=== PATIENT | female | born 1935 | race Caucasian/White ===

== ENCOUNTER 2020-08-11 14:29 | Inpatient (IN) | payer OTHER, SELFPAY ==
--- NOTE | ~2020-08-11 | MR_ITS ---
EXAMINATION: MR MRCP wo con/w 3D wo ind pp DATE: 08/12/2020 12:07 INDICATION: Biliary duct dilatation. TECHNIQUE: Magnetic resonance imaging (MRI) of the abdomen was performed without intravenous contrast . Sequences included coronal T2-weighted FS FSE, coronal T2-weighted FSE, axial T1-weighted LAVA, cor onal FS FIESTA, axial dual-echo T1-weighted SPGR, coronal lava-FLEX, sagittal T2-weighted FSE, axial T2-weighted FSE, and axial DWI. Thick-slab T2-weighted FSE images were obtained for magnetic resonanc e cholangiopancreatography (MRCP). Maximum intensity projection 3-D reconstructions of the volumetric data were created by the technologist. Postcontrast sequences included coronal LAVA-flex and time co urse of axial T1-weighted LAVA. COMPARISON: CT abdomen and pelvis 08/11/2020 FINDINGS: ABDOMEN MRI: There is a small sliding hiatal hernia. There are cysts in the liver measuring up to 7 m m. There is moderate intrahepatic and extrahepatic biliary duct dilatation. The common duct measures 11 mm. There is a 13 x 5 x 9 mm dependent nonobstructing mass in the common bile duct. The gallbladde r is distended. There is dependent sludge versus stones in the gallbladder. The spleen is normal. The re is parenchymal atrophy of the pancreas. There are dilated sidechains of the pancreatic duct, consi stent with chronic pancreatitis. The adrenal glands are normal. There are cysts in the kidneys measur ing up to 7 mm on the right. There are no dilated loops of bowel. There are no pathologically enlarge d lymph nodes. There is no free intraperitoneal fluid. ABDOMEN MRCP: Again seen is a dependent obstructing mass in the common bile duct. IMPRESSION: 1. Moderate intrahepatic and extrahepatic biliary duct dilatation. 13 x 5 x 9 mm dependent nonobstruc ting mass in the common bile duct, likely sludge. Consider ERCP. 2. Dependent material in the gallbladder, likely sludge. 3. Gallbladder distention again seen. Correlate with physical exam to exclude acute cholecystitis. Co nsider HIDA scan. Reviewed, dictated and finalized at location B. IMPRESSION: 1. Moderate intrahepatic and extrahepatic biliary duct dilatation. 13 x 5 x 9 m m dependent nonobstructing mass in the common bile duct, likely sludge. Conside r ERCP. 2. Dependent material in the gallbladder, likely sludge. 3. Gallbladder distention again seen. Correlate with physical exam to exclude a cute cholecystitis. Consider HIDA scan.
--- NOTE | ~2020-08-11 | XR_ITS ---
EXAMINATION: XR ERCP EXAM DATE: 08/13/2020 14:01 INDICATION: Possible Stones, Balloon Dilation, Spyglass Scope Used . TECHNIQUE: Fluoroscopy used during XR ERCP performed by Dr. Malvin Mata MD. Radiolo gist was not present for the imaging or procedure. Total fluoroscopic time of 161 seconds. The DAP for this procedure was 0.95 mGym2. A total of 12 images sent to PACS from the exam. Correlation is m kar to MRCP 08/12/2020. FINDINGS: The ampulla Vater was cannulated, and subsequently injected with contrast. It demonstrated moderate earlier duct dilation without any obstructing etiology identified. No filling defects or st rictures. Correlate with procedure note. IMPRESSION: Moderate biliary dilation. Reviewed, dictated and finalized at location A. IMPRESSION: Moderate biliary dilation.
--- NOTE | ~2020-08-11 | CT_ITS ---
EXAMINATION: CT abdomen pelvis wo con DATE: 08/11/2020 15:47 INDICATION: Obstruction. TECHNIQUE: Computed tomography (CT) of the abdomen and pelvis was performed without intravenous contr ast. Automated exposure control and iterative reconstruction technique were employed. The dose-length product was 1308.45 mGy-cm. COMPARISON: None. FINDINGS: The visualized portions of the lung bases demonstrate widespread septal thickening and bron chiectasis, consistent with chronic interstitial lung disease. No pleural effusion. The heart size is normal. No pericardial effusion. There is a small sliding hiatal hernia. There is moderate intrahepa tic biliary duct dilatation. There are cysts in the liver measuring up to 9 mm. The gallbladder is di stended. Calcifications in the spleen are consistent with old granulomatous disease. The pancreas, ad renal glands, and right kidney are normal. There are 2 mm and 3 mm stones in left kidney. The common duct is dilated to 16 mm. Stool distends the rectum. There is a large volume of stool in the colon. T he appendix is normal. There is mild periportal lymphadenopathy with the largest node measuring 2.2 x 1.3 cm. There is no free intraperitoneal fluid. There is severe osteoarthritis of the hips. There is severe thoracolumbar spondylosis. There is a chronic compression fracture of L1. IMPRESSION: 1. Intrahepatic and extrahepatic biliary duct dilatation. No obstructing mass or stone identified. Co nsider MRCP. 2. Gallbladder distention. Correlate with physical exam to exclude acute cholecystitis. 3. Large volume of stool in the colon with distention of the rectum. 4. Small sliding hiatal hernia. 5. Mild periportal lymphadenopathy, likely reactive. Reviewed, dictated and finalized at location B. IMPRESSION: 1. Intrahepatic and extrahepatic biliary duct dilatation. No obstructing mass o r stone identified. Consider MRCP. 2. Gallbladder distention. Correlate with physical exam to exclude acute cholec ystitis. 3. Large volume of stool in the colon with distention of the rectum. 4. Small sliding hiatal hernia. 5. Mild periportal lymphadenopathy, likely reactive.
[2020-08-11 14:41] VITALS: BP 134/73; PULSE 72; RESP 20; TEMP 36.7; O2SAT 95
[2020-08-11 15:42] LABS: Basophils Absolute Auto 0.1 K/mm3 (0.0-0.1); Basophils Percent Auto 0.5 % (0.2-1.2); Eosinophils Absolute Auto 0.2 K/mm3 (0-0.3); Eosinophils Percent Auto 1.1 % (0-4.4); Hematocrit 45.4 % (37.0-47.0); Hemoglobin 15.8 g/dL (12.0-15.0); Immature Granulocyte Absolute 0.49 K/mm3 (0.00-0.031); Lymphocytes Percent Auto 7.3 % (18.3-44.2); Mean Corpuscular HGB Conc 34.8 g/dl (32-36); Mean Corpuscular Hemoglobin 31.9 pg (26-34); Mean Corpuscular Volume 91.7 fl (80-100); Mean Platelet Volume 9.6 fl (7.4-10.4); Monocytes Absolute Auto 1.5 K/mm3 (0.1-0.6); Monocytes Percent Auto 9.3 % (2.6-8.5); Neutrophils Absolute Auto 13.1 K/mm3 (1.3-6.7); Neutrophils Percent Auto 78.8 % (45.5-73.1); Platelet Count Result 371 k/mm3 (150-375); Red Blood Count 4.95 M/mm3 (4.2-5.4); White Blood Count 16.5 K/mm3 (4.5-10.0)
[2020-08-11 15:42] LABS: Estimated CRCL calculation 22 ml/min; Estimated Glomerular Filt Rate 24
[2020-08-11 15:48] LABS: Add Urine Microscopic? YES; Appearance Urine Cloudy (Clear); Bacteria Urine 2+ /hpf; Bilirubin Urine Negative (Negative); Blood Urine 1+ (Negative); Color Urine Yellow (Yellow); Glucose Urine UA Negative (Negative); Hyaline Casts Urine 20-29 /lpf; Ketones Urine Negative (Negative); Leukocyte Esterase Ur 3+ LEU/UL (Negative); Mucus Urine Rare /lpf; Nitrate Urine Negative (Negative); Protein Urine Negative (Negative); RBC Urine 0-2 /hpf (0-2); Specific Grav Ur 1.009 (1.001-1.035); Squamous Epithelial Cell Urine Rare /hpf (Few); Urobilinogen Urine Negative mg/dL (<2.0); WBC Clumps Urine Present /HPF; WBC Urine >75 /hpf
[2020-08-11 15:52] LABS: Alanine Aminotransferase 15 U/L (4-35); Albumin Level 4.2 g/dL (3.5-5.1); Alkaline Phosphatase 159 U/L (38-126); Anion Gap 8 mmol/L (8-16); Aspartate Amino Transferase 44 U/L (14-36); Bilirubin,Total 0.7 mg/dL (0.2-1.3); Blood Urea Nitrogen 36 mg/dL (7-17); Calcium 8.8 mg/dL (8.4-10.2); Carbon Dioxide 38 mmol/L (22-30); Chloride 82 mmol/L (98-107); Estimated CRCL calculation 23 ml/min; Estimated Glomerular Filt Rate 25; Glucose 151 mg/dL (65-105); Lipase 25 U/L (23-300); Potassium 3.1 mmol/L (3.4-5.0); Sodium 128 mmol/L (137-145)
[2020-08-11] MEDS: FAMOTIDINE 20 MG/2 ML VIAL IV PUSH ×2 (15:53→22:47)
[2020-08-11] MEDS: SODIUM CHLORIDE 0.9% IV 1,000 ML 999 ML IV CONT ×2 (15:53→17:03)
[2020-08-11] MEDS: ONDANSETRON INJ 4 MG/2 ML VIAL IV PUSH (15:53)
--- NOTE | 2020-08-11 17:23 | ED.GENADULT ---
HPI - General Adult General Chief complaint: Nausea/Vomiting/Diarrhea Stated complaint: not eating 2-3 days Source: patient and RN notes reviewed Mode of arrival: EMS Limitations: no limitations History of Present Illness HPI narrative: Patient is an 84-year-old female who presents with decreased appetite and GI upset for the last 2 days noting that she feels nauseous patient notes mild discomfort in the epigastrium. Patient denies any vomiting diarrhea rectal bleeding or melena. Patient has indwelling Zhu catheter. Related Data Home Medications Medication Instructions Recorded Confirmed amlodipine 10 mg PO DAILY 08/11/20 08/11/20 atorvastatin 20 mg PO DAILY 08/11/20 celecoxib 200 mg PO DAILY 08/11/20 fluticasone propionate 1 spray INTRANASAL DAILY 08/11/20 furosemide 40 mg PO DAILY 08/11/20 08/11/20 levothyroxine 200 mcg 08/11/20 metolazone 5 mg PO DAILY 08/11/20 08/11/20 mirabegron [Myrbetriq] mg PO 08/11/20 ondansetron HCl 4 mg PO Q4-8H PRN 08/11/20 potassium chloride 20 meq PO 08/11/20 Allergies Allergy/AdvReac Type Severity Reaction Status Date / Time adhesive tape Allergy Mild Rash Unverified 08/11/20 18:01 morphine Allergy Mild Rash Unverified 08/11/20 18:01 Review of Systems Review of Systems: All systems reviewed & are unremarkable except as noted in HPI and below PMFSH Past Medical History Medical History (Updated 08/11/20 @ 18:06 by Kranthi Duenas PA-C) Hyperlipidemia Hypertension Surgical History Surgical History (Updated 08/11/20 @ 17:39 by Kranthi Duenas PA-C) History of orthopedic surgery Social History Social History (Updated 08/11/20 @ 17:39 by rKanthi Duenas PA-C) Smoking status: Never smoker Exam Narrative: Exam Narrative: GENERAL: Well-appearing, well-nourished, and in no acute distress. HEAD: Normocephalic, atraumatic. EYES: PERRLA and EOMI. ENT: Nares clear, no rhinorrhea or epistaxis. Mucous membranes moist. Oropharynx without tonsillar hypertrophy exudate or other lesions. NECK: Supple. No adenopathy or masses. CHEST: Clear to auscultation. No respiratory distress. No wheezes rales or rhonchi HEART: Regular rate and rhythm. No murmur heard. Normal peripheral pulses. ABDOMEN: Soft, mild epigastric tenderness no rebound or guarding, nondistended EXTREMITIES: Normal range of motion. No edema. SKIN: Warm, dry, no rash. NEURO: No focal deficits. Alert and oriented x3. Cranial nerves II through XII grossly intact PSYCH: Normal mood and affect. Course Course Emergency Course: Patient in the room in no distress at this time aware of case findings treatment plan and diagnosis agreeing to stay in hospital will have GI consult GI did not recommend any antibiotics for acute cholecystitis given that her liver enzymes were in normal limits MRCP has been ordered. Patient will be given Rocephin for urinary tract infection has been given normal saline with hydration given her dehydration picture and acute renal insufficiency there was no old labs or blood work to compare. She does have leukocytosis. Consultations Consultation #1: Discussed case with Dr. Nation who will consult on patient MRCP has been ordered does not recommend antibiotics for acute cholecystitis given the laboratory findings and will reevaluate the patient. Date: 08/11/20 Time: 17:41 Consultation #2: Discussed case with Ellen who has agreed to ask The patient Date: 08/11/20 Time: 17:41 Vital Signs Vital signs: Vital Signs Temperature 98.0 F 08/11/20 14:41 Pulse Rate 72 08/11/20 14:41 Respiratory Rate 08/11/20 14:41 Blood Pressure 134/73 08/11/20 14:41 Pulse Oximetry 95 08/11/20 14:41 Temperature 98.0 F 08/11/20 14:41 Pulse Rate 72 08/11/20 14:41 Respiratory Rate 20 08/11/20 14:41 Blood Pressure 134/73 08/11/20 14:41 Pulse Oximetry 95 08/11/20 14:41 Medical Decision Making [facility] Narrative Medical decision making narrative: Patient in the [place]
[2020-08-11 17:48] VITALS: BP 138/76; PULSE 63; RESP 18; O2SAT 99
[2020-08-11] MEDS: POTASSIUM CHLORIDE 20 MEQ PACKET (FOR LIQUID) 40 MEQ PO (19:14)
[2020-08-11] MEDS: MAGNESIUM SULF 2 GM/WATER 50ML 2 GM/50 ML BAG IVPB (19:14)
[2020-08-11 20:02] VITALS: BP 133/57; PULSE 76; RESP 20; TEMP 36.8; O2SAT 93; BMI 34.0
[2020-08-11 20:07] VITALS: BP 122/68; PULSE 78; RESP 18; O2SAT 99
[2020-08-11 20:17] VITALS: BMI 34.2
--- NOTE | 2020-08-11 21:37 | PM.IMHP ---
H&P: HPI History of Present Illness Date/Time: 08/11/20 21:37 this is a 84-year-old female patient who resides at [facility]. The patient stated that she had abdominal discomfort about 4 weeks ago that came and went was similar to what she had today but it was less intense and it went away on its own. The patient has no prior history of any gallstones. And GI upset for at least the last 2 days. Patient stated she has been having dry heaves. And some mild discomfort in the epigastric area. No vomiting or diarrhea. No fever or chills. She has indwelling Zhu catheter. The patient was found to be positive for UTI and was started on Rocephin. Abdominal CT was read as the following 1. Intrahepatic and extrahepatic biliary duct dilatation. No obstructing mass or stone identified. Consider MRCP. 2. Gallbladder distention. Correlate with physical exam to exclude acute cholecystitis. 3. Large volume of stool in the colon with distention of the rectum. 4. Small sliding hiatal hernia. 5. Mild periportal lymphadenopathy, likely reactive. GI had been consulted an MRCP has been ordered for tomorrow. The patient was given IV fluid boluses, Pepcid IV, Tylenol IV, Zofran, ceftriaxone, magnesium, and potassium in the emergency room. 128. Potassium 3.1. White count is 16.5. There was some discussion about possible cholecystitis. However GI did not feel that we should start antibiotics for cholecystitis but go ahead and treat the UTI. The patient is being admitted for observation on the date of service of 08/11/2020. Chief Complaint: Dry heaves Review of Systems Review of Systems: All systems reviewed & are unremarkable except as noted in HPI and below Constitutional: Constitutional: Reports as per HPI and Reports no additional constitutional complaints Eyes: Eyes: Reports as per HPI and Reports no additional eye complaints ENT: Reports system reviewed and no additional complaints, except as documented and Reports Normal hearing present Cardiovascular: Cardiovascular: Reports no additional cardiovascular complaints Respiratory: Respiratory: Reports no additional respiratory complaints and Reports no additional respiratory complaints Gastrointestinal: Gastrointestinal: Reports as per HPI and Reports no additional gastrointestinal complaints Musculoskeletal: Musculoskeletal: Reports no additional musculoskeletal complaints Integumentary/Breasts: Skin/Breast: Reports system reviewed and no additional complaints, except as docu and Reports as per HPI Neurologic: Reports system reviewed and no additional complaints, except as documented, Reports as per HPI and Reports Normal hearing present Psychiatric: Psychiatric: Reports no additional psychiatric complaints and Reports as per HPI Endocrine: Endocrine: Reports no additional endocrine complaints Hematologic/Lymphatic: Hematologic/Lymphatic: Reports no additional hematologic/lymphatic complaints Allergic/Immunologic: Allergic/Immunologic: Reports no additional allergic/immunologic complaints [facility] Past Medical History Medical History (Updated 08/11/20 @ 21:51 by Ellen Sapp NP) History of breast cancer Lumpectomy Hyperlipidemia Hypertension Hypothyroidism Surgical History Surgical History (Updated 08/11/20 @ 21:44 by Ellen Sapp NP) H/O bilateral cataract extraction H/O lumpectomy H/O shoulder replacement On the left History of orthopedic surgery History of total knee replacement Bilaterally Family History Family History (Updated 08/11/20 @ 21:46 by Ellen Sapp NP) Unknown No problems noted. Social History Social History (Updated 08/11/20 @ 21:47 by Ellen Sapp NP) Social History: The patient is and never had any children. 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 She is a lifelong nonsmoker. Her friend Melissa mendoza is her friend that is the durable power estate planning attorney for healthcare. The patient desires to be a full code but does not want to l
[2020-08-11] MEDS: SODIUM CHLORIDE 0.9% IV 1,000 ML 80 ML IV CONT (22:47)
[2020-08-11 23:25] VITALS: O2SAT 98
[2020-08-11 23:48] LABS: Anion Gap 8 mmol/L (8-16); Blood Urea Nitrogen 33 mg/dL (7-17); Calcium 7.8 mg/dL (8.4-10.2); Carbon Dioxide 33 mmol/L (22-30); Chloride 88 mmol/L (98-107); Estimated CRCL calculation 27 ml/min; Estimated Glomerular Filt Rate 31; Glucose 106 mg/dL (65-105); Potassium 2.7 mmol/L (3.4-5.0); Sodium 129 mmol/L (137-145)
--- NOTE | 2020-08-11 23:51 | PC.NURSE ---
patient had significant bowel movement after fleet enema administered. -AEW RN
[2020-08-12] MEDS: ONDANSETRON INJ 4 MG/2 ML VIAL IV PUSH (04:24)
[2020-08-12 05:31] VITALS: BP 112/42; PULSE 57; RESP 18; TEMP 36.6; O2SAT 94
--- NOTE | 2020-08-12 06:16 | PC.NURSE ---
This patient, Isabel Monzon, was admitted to 3 [facility] Surg Room 304-01 @ 20:02. Patient/family oriented to hospital policies and general routines including ID bracelet, bed and alarms, visiting hours, pain management, procedures, bathroom and other care routines, personal items, smoking policy, room service/diet, and visiting hours. Information on how to activate the Rapid Response Team has been discussed. Patient/Family are encouraged to report perceived risks to care and to ask questions if they do not understand what they are told or what they should do.
[2020-08-12 06:22] LABS: Basophils Absolute Auto 0.1 K/mm3 (0.0-0.1); Basophils Percent Auto 0.7 % (0.2-1.2); Eosinophils Absolute Auto 0.3 K/mm3 (0-0.3); Eosinophils Percent Auto 1.4 % (0-4.4); Hematocrit 37.5 % (37.0-47.0); Immature Granulocyte Absolute 0.38 K/mm3 (0.00-0.031); Immature Granulocyte Percent A 2.1 % (0-0.5); Lymphocytes Absolute Auto 1.17 K/mm3 (0.9-3.2); Lymphocytes Percent Auto 6.4 % (18.3-44.2); Mean Corpuscular HGB Conc 34.7 g/dl (32-36); Mean Corpuscular Hemoglobin 31.6 pg (26-34); Mean Corpuscular Volume 91.2 fl (80-100); Mean Platelet Volume 9.7 fl (7.4-10.4); Monocytes Absolute Auto 1.5 K/mm3 (0.1-0.6); Monocytes Percent Auto 8.1 % (2.6-8.5); Neutrophils Absolute Auto 14.7 K/mm3 (1.3-6.7); Neutrophils Percent Auto 81.3 % (45.5-73.1); Platelet Count Result 293 k/mm3 (150-375); Red Blood Count 4.11 M/mm3 (4.2-5.4); Red Cell Distribution Width 12.7 % (11.5-14.5); White Blood Count 18.1 K/mm3 (4.5-10.0)
[2020-08-12 06:34] LABS: Alanine Aminotransferase 11 U/L (4-35); Albumin Level 3.2 g/dL (3.5-5.1); Alkaline Phosphatase 117 U/L (38-126); Anion Gap 5 mmol/L (8-16); Aspartate Amino Transferase 34 U/L (14-36); Bilirubin,Total 0.3 mg/dL (0.2-1.3); Blood Urea Nitrogen 29 mg/dL (7-17); Calcium 7.6 mg/dL (8.4-10.2); Carbon Dioxide 30 mmol/L (22-30); Chloride 92 mmol/L (98-107); Estimated CRCL calculation 38 ml/min; Estimated Glomerular Filt Rate 48; Glucose 84 mg/dL (65-105); Lipase 17 U/L (23-300); Magnesium 1.5 mg/dL (1.6-2.3); Potassium 3.1 mmol/L (3.4-5.0); Sodium 127 mmol/L (137-145)
[2020-08-12 07:28] LABS: Thyroid Stimulating Hormone Reflex 0.022 uIU/mL (0.465-4.68)
[2020-08-12 08:20] LABS: Free T4 Free Thyroxine Reflex 2.69 ng/dL (0.78-2.19)
[2020-08-12] MEDS: POTASSIUM CHLORIDE 20 MEQ TABLET 40 MEQ PO (09:09)
[2020-08-12] MEDS: FLUTICASONE PROPIONATE 0.05% NA SPR 16 GM BTL (*BKC) 1 SPRAY NASAL (09:11)
[2020-08-12] MEDS: FAMOTIDINE 20 MG/2 ML VIAL IV PUSH ×2 (09:11→21:02)
[2020-08-12] MEDS: MAGNESIUM SULF 2 GM/WATER 50ML 2 GM/50 ML BAG IVPB (09:50)
[2020-08-12 11:09] VITALS: O2SAT 95
--- NOTE | 2020-08-12 13:52 | PM.IMPN ---
Progress Note: A&P Assessment and Plan (1) Urinary tract infection: Code(s): N39.0 - Urinary tract infection, site not specified Status: Acute Assessment and Plan: Continue with Rocephin. Monitor urine cultures. Patient is having dry heaves which could either be from the gallbladder or from urinary tract infection. She does not appear to be septic. Her white count 16.5. Blood pressure is 122/68. Heart rate 78. (2) Dysfunctional gallbladder: Code(s): K82.8 - Other specified diseases of gallbladder Status: Acute Assessment and Plan: The patient has intrahepatic and extrahepatic biliary duct dilatation. Patient is scheduled for an Mrcp tomorrow. And GI has been consulted. 08/12/20 13:52 Patient 84-year-old female presented emergency department with a complaint of epigastric pain and dry heaving patient had a CT scan of abdomen suggestive cholecystitis patient will be seen by GI and further recommendation to follow, GI did an suspect is infection and does not recommend antibiotic, to further evaluate MRCP it showed: 1. Moderate intrahepatic and extrahepatic biliary duct dilatation. 13 x 5 x 9 mm dependent nonobstructing mass in the common bile duct, likely sludge. Consider ERCP. 2. Dependent material in the gallbladder, likely sludge. 3. Gallbladder distention again seen. Correlate with physical exam to exclude acute cholecystitis. Consider HIDA scan. Patient be seen by GI and further recommendation to follow, patient states feeling much better compared to when she arrived denies any nausea or vomiting fever or chills (3) Hypothyroidism: Code(s): E03.9 - Hypothyroidism, unspecified Status: Chronic Assessment and Plan: Check thyroid level. (4) Hyperlipidemia: Code(s): E78.5 - Hyperlipidemia, unspecified Status: Chronic Assessment and Plan: I am holding the atorvastatin (5) Hypertension: Code(s): I10 - Essential (primary) hypertension Status: Chronic Assessment and Plan: I am holding the amlodipine as patient has a soft blood pressure I am holding Lasix due to her renal failure and low potassium and low sodium. The metolazone as well. (6) Acute hyponatremia: Code(s): E87.1 - Hypo-osmolality and hyponatremia Status: Acute (7) Acute hypokalemia: Code(s): E87.6 - Hypokalemia Status: Acute Assessment and Plan: It has been replaced in all check her BMP now. (8) Acute renal insufficiency: Code(s): N28.9 - Disorder of kidney and ureter, unspecified Status: Acute Assessment and Plan: Most likely due to dehydration. I am holding her Lasix and metolazone at this time. Subjective Date/time seen: 08/12/20 13:52 Patient 84-year-old female presented emergency department with a complaint of epigastric pain and dry heaving patient had a CT scan of abdomen suggestive cholecystitis patient will be seen by GI and further recommendation to follow, GI did an suspect is infection and does not recommend antibiotic, to further evaluate MRCP it showed: 1. Moderate intrahepatic and extrahepatic biliary duct dilatation. 13 x 5 x 9 mm dependent nonobstructing mass in the common bile duct, likely sludge. Consider ERCP. 2. Dependent material in the gallbladder, likely sludge. 3. Gallbladder distention again seen. Correlate with physical exam to exclude acute cholecystitis. Consider HIDA scan. Patient be seen by GI and further recommendation to follow, patient states feeling much better compared to when she arrived denies any nausea or vomiting fever or chills Review of Systems Review of Systems: All systems reviewed & are unremarkable except as noted in HPI and below Objective Data Vital Signs Vital Signs: Vital Signs - 24 hr 08/11/20 14:41 08/11/20 17:48 08/11/20 20:02 Temperature 98.0 F 98.2 F Pulse Rate 72 63 76 Respiratory Rate 20 18 20 Blood Pressure 134/73 138/76 133/57 L Pulse Oximetry 95 99
[2020-08-12 14:00] VITALS: BP 125/59; PULSE 76; RESP 20; TEMP 36.3; O2SAT 97
[2020-08-12] MEDS: traMADol HCL (*CRX) 50 MG TABLET PO ×2 (14:42→21:05)
[2020-08-12] MEDS: SODIUM CHLORIDE 0.9% IV 1,000 ML 80 ML IV CONT (16:37)
--- NOTE | 2020-08-12 16:47 | WPDGICN ---
Assessment and Plan Assessment and plan (1) Common bile duct dilatation: Code(s): K83.8 - Other specified diseases of biliary tract Status: Acute Assessment and Plan: probably cause of symptoms (she has enlarge bile duct with large sludge- reviewed MRCP), normal liver enzymes and no pancreatitis but she has been quite symptomatic last month she is willing to have ERCP- will do it tomorrow with spyglass to visualize bile duct patient does not want to have cholecystectomy (2) Biliary sludge: Code(s): K83.8 - Other specified diseases of biliary tract Status: Acute Assessment and Plan: ercp tomorrow (3) Nausea: Code(s): R11.0 - Nausea Status: Acute (4) Dysfunctional gallbladder: Code(s): K82.8 - Other specified diseases of gallbladder Status: Acute Assessment and Plan: medical treatment (5) Constipation: Code(s): K59.00 - Constipation, unspecified Status: Acute Assessment and Plan: given enema (6) Leukocytosis: Code(s): D72.829 - Elevated white blood cell count, unspecified Status: Acute Assessment and Plan: on antibiotics, also possible UTI blood culture (7) Urinary tract infection: Code(s): N39.0 - Urinary tract infection, site not specified Status: Acute GI Consult Note Consult date/time: 08/12/20 16:47 Reason for consult: nausea, dilated bile duct HPI: Isabel Monzon 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 About 4 weeks ago had almost 1 week of nausea with gagging but went away, just few days ago with similar symptoms with constant nausea and dry heaves, mild discomfort in the epigastric area and not eating much. She also has indwelling Zhu catheter and found to be positive for UTI and was started on Rocephin. She also had CT a/p showed intrahepatic and extrahepatic biliary duct dilatation. No obstructing mass or stone identified, gallbladder distention and large volume of stool in the colon with distention of the rectum. Then MRCP reviewed and showed moderate intrahepatic and extrahepatic biliary duct dilatation. 13 x 5 x 9 mm dependent nonobstructing mass in the common bile duct, likely sludge. Consider ERCP, dependent material in the gallbladder, likely sludge. Liver enzymes and lipase normal but leukocytosis. She also had rectal enema that helped some but she says that normally is having BM every other day. She says that had colonoscopy but never egd. Review of Systems Constitutional: Constitutional: Denies chills Eyes: Eyes: Reports no additional eye complaints ENT: Reports Normal hearing present Cardiovascular: Cardiovascular: Denies chest pain Respiratory: Respiratory: Denies cough Gastrointestinal: Gastrointestinal: Reports nausea Genitourinary: Genitourinary: Denies hematuria Musculoskeletal: Comments: chronic leg weakness Integumentary/Breasts: Skin/Breast: Reports system reviewed and no additional complaints, except as docu Neurologic: Reports system reviewed and no additional complaints, except as documented Psychiatric: Psychiatric: Reports no additional psychiatric complaints PMFSH Past Medical History Medical History (Updated 08/12/20 @ 16:53 by Malvin Mata MD) Biliary sludge Common bile duct dilatation History of breast cancer Lumpectomy Hyperlipidemia Hypertension Hypothyroidism Leukocytosis Nausea Surgical History Surgical History (Updated 08/11/20 @ 21:44 by Ellen Sapp NP) H/O bilateral cataract extraction H/O lumpectomy H/O shoulder replacement On the left History of orthopedic surgery History of total knee replacement Bilaterally Family History Family History (Updated 08/11/20 @ 21:46 by Ellen Sapp NP) Unknown No problems noted. Social History Social History (Updated 08/11/20 @ 21:47 by Ellen Sapp NP) Social History: The patient is a
[2020-08-12 21:27] VITALS: BP 110/45; PULSE 65; RESP 16; TEMP 36.5; O2SAT 94
[2020-08-13] VITALS (11 sets, daily range): BP systolic 99–135; BP diastolic 41–87; PULSE 58–74; RESP 16–20; TEMP 36.1–37.2; O2SAT 91–100
[2020-08-13] MEDS: LEVOTHYROXINE SODIUM 100 MCG TABLET 200 MCG PO (06:19)
[2020-08-13 06:23] LABS: Hematocrit 42.4 % (37.0-47.0); Hemoglobin 14.1 g/dL (12.0-15.0); Mean Corpuscular HGB Conc 33.3 g/dl (32-36); Mean Corpuscular Hemoglobin 31.9 pg (26-34); Mean Corpuscular Volume 95.9 fl (80-100); Mean Platelet Volume 9.7 fl (7.4-10.4); Platelet Count Result 274 k/mm3 (150-375); Red Blood Count 4.42 M/mm3 (4.2-5.4); White Blood Count 13.8 K/mm3 (4.5-10.0)
[2020-08-13 06:36] LABS: Anion Gap 5 mmol/L (8-16); Blood Urea Nitrogen 16 mg/dL (7-17); Calcium 8.9 mg/dL (8.4-10.2); Carbon Dioxide 33 mmol/L (22-30); Chloride 96 mmol/L (98-107); Estimated CRCL calculation 50 ml/min; Estimated Glomerular Filt Rate > 60; Glucose 91 mg/dL (65-105); Potassium 3.4 mmol/L (3.4-5.0); Sodium 134 mmol/L (137-145)
[2020-08-13] MEDS: FLUTICASONE PROPIONATE 0.05% NA SPR 16 GM BTL (*BKC) 1 SPRAY NASAL (08:30)
[2020-08-13] MEDS: FAMOTIDINE 20 MG/2 ML VIAL IV PUSH ×2 (08:30→21:34)
--- NOTE | 2020-08-13 11:29 | WPDANESEPPF ---
Anes - Initial Pre Proc Eval Procedure: Operation Date: 08/13/20 12:30 Proposed Procedures p Endoscopic Retro Cholangiopancreatogram - Malvin Mata MD Date/Time: 08/13/20 11:29 Surgeon: Wayne Rico MD Pre Op Diagnosis: Hyponatremia, hypokalemia, acute kidney injury Patient Data Age: 85 Gender: F Height: 1.63 m Weight: 90.3 kg Last Vital Signs Temp 37.2 C 08/13/20 11:22 Pulse 66 08/13/20 11:22 Resp 20 08/13/20 11:22 BP 116/52 L 08/13/20 11:22 Pulse Ox 94 08/13/20 11:22 Allergies Allergy/AdvReac Type Severity Reaction Status Date / Time adhesive tape Allergy Mild Rash Verified 08/13/20 11:29 morphine Allergy Mild Rash Verified 08/13/20 11:29 Home Medications Medication Instructions Recorded Confirmed Type acetaminophen 500 mg PO Q4H PRN 08/11/20 08/11/20 History amlodipine 10 mg PO DAILY 08/11/20 08/11/20 History aspirin 81 mg PO DAILY 08/11/20 08/11/20 History atorvastatin 20 mg PO DAILY 08/11/20 08/11/20 History celecoxib 200 mg PO DAILY 08/11/20 08/11/20 History fluticasone propionate 1 spray INTRANASAL DAILY 08/11/20 08/11/20 History furosemide 40 mg PO DAILY 08/11/20 08/11/20 History levothyroxine 200 mcg PO DAILY 08/11/20 08/11/20 History loratadine 10 mg PO DAILY PRN 08/11/20 08/11/20 History meclizine 25 mg PO TID PRN 08/11/20 08/11/20 History metolazone 5 mg PO DAILY 08/11/20 08/11/20 History omeprazole 20 mg PO BID 08/11/20 08/11/20 History omeprazole 20 mg PO DAILY 08/11/20 08/11/20 History ondansetron HCl 4 mg PO Q4-5H PRN 08/11/20 08/11/20 History polyethylene glycol 3350 [Miralax] 17 g PO PRN PRN 08/11/20 08/11/20 History potassium chloride 20 meq PO BID 08/11/20 08/11/20 History spironolactone 25 mg PO DAILY 08/11/20 08/11/20 History tramadol 50 mg PO Q4H PRN 08/11/20 08/11/20 History Laboratory Tests 08/13/20 08/13/20 05:41 05:41 WBC 13.8 K/mm3 H K/mm3 (4.5-10.0) RBC 4.42 M/mm3 M/mm3 (4.2-5.4) Hgb 14.1 g/dL g/dL (12.0-15.0) Hct 42.4 % % (37.0-47.0) MCV 95.9 fl D fl (80-100) MCH 31.9 pg pg (26-34) MCHC 33.3 g/dl g/dl (32-36) RDW 13.0 % % (11.5-14.5) Plt Count 274 k/mm3 k/mm3 (150-375) MPV 9.7 fl fl (7.4-10.4) Sodium 134 mmol/L L mmol/L (137-145) Potassium 3.4 mmol/L mmol/L (3.4-5.0) Chloride 96 mmol/L L mmol/L (98-107) Carbon Dioxide 33 mmol/L H mmol/L (22-30) Anion Gap 5 mmol/L L mmol/L (8-16) BUN 16 mg/dL D mg/dL (7-17) Creatinine 0.80 mg/dL mg/dL (0.7-1.0) Estim Creat Clear Calc 50 ml/min ml/min Estimated GFR > 60 (59 - ) Glucose 91 mg/dL mg/dL (65-105) Calcium 8.9 mg/dL mg/dL (8.4-10.2) Magnesium 2.0 mg/dL mg/dL (1.6-2.3) Patient hx anesthesia problems: none Family hx anesthesia problems: none PMFSH Past Medical History Medical History (Updated 08/12/20 @ 16:53 by Malvin Mata MD) Biliary sludge Common bile duct dilatation History of breast cancer Lumpectomy Hyperlipidemia Hypertension Hypothyroidism Leukocytosis Nausea Surgical History Surgical History (Updated 08/11/20 @ 21:44 by Ellen Sapp NP) H/O bilateral cataract extraction H/O lumpectomy H/O shoulder replacement On the left History of orthopedic surgery History of total knee replacement Bilaterally Family History Family History (Updated 08/11/20 @ 21:46 by Ellen Sapp NP) Unknown No problems noted. Social History Social History (Updated 08/11/20 @ 21:47 by Ellen Sapp NP) Social History: The patient is and never had any children. 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 She is a lifelong nonsmoker. Her friend Melissa mendoza is her friend that is the durable power sports attorney for healthcare. The patient desires to be a full code but does not want to live in a vegetative state on a ventilator. She does not use alcohol or illic
--- NOTE | 2020-08-13 14:48 | PC.NURSE ---
Returned from GI Lab at [id number]
[2020-08-13] MEDS: POTASSIUM CHLORIDE 20 MEQ TABLET 40 MEQ PO (15:05)
--- NOTE | 2020-08-13 16:39 | PM.IMPN ---
Progress Note: A&P Assessment and Plan (1) Urinary tract infection: Code(s): N39.0 - Urinary tract infection, site not specified Status: Acute Assessment and Plan: Continue with Rocephin. Monitor urine cultures. Patient is having dry heaves which could either be from the gallbladder or from urinary tract infection. She does not appear to be septic. Her white count 16.5. Blood pressure is 122/68. Heart rate 78. (2) Dysfunctional gallbladder: Code(s): K82.8 - Other specified diseases of gallbladder Status: Acute Assessment and Plan: The patient has intrahepatic and extrahepatic biliary duct dilatation. Patient is scheduled for an Mrcp tomorrow. And GI has been consulted. 08/13/20 16:39 08/12 Patient 84-year-old female presented emergency department with a complaint of epigastric pain and dry heaving patient had a CT scan of abdomen suggestive cholecystitis patient will be seen by GI and further recommendation to follow, GI did an suspect is infection and does not recommend antibiotic, to further evaluate MRCP it showed: 1. Moderate intrahepatic and extrahepatic biliary duct dilatation. 13 x 5 x 9 mm dependent nonobstructing mass in the common bile duct, likely sludge. Consider ERCP. 2. Dependent material in the gallbladder, likely sludge. 3. Gallbladder distention again seen. Correlate with physical exam to exclude acute cholecystitis. Consider HIDA scan. Patient be seen by GI and further recommendation to follow, patient states feeling much better compared to when she arrived denies any nausea or vomiting fever or chills. 08/13 today patient was seen by GI and had a ERCP showed sludge and which was irrigated and cleaned, there was no mass or stone found, patient states is still slightly nauseated after the procedure but denies any fever or chills denies abdominal pain, will continue to monitor patient reassess in the morning and further recommendation to follow (3) Hypothyroidism: Code(s): E03.9 - Hypothyroidism, unspecified Status: Chronic Assessment and Plan: Check thyroid level. (4) Hyperlipidemia: Code(s): E78.5 - Hyperlipidemia, unspecified Status: Chronic Assessment and Plan: I am holding the atorvastatin (5) Hypertension: Code(s): I10 - Essential (primary) hypertension Status: Chronic Assessment and Plan: I am holding the amlodipine as patient has a soft blood pressure I am holding Lasix due to her renal failure and low potassium and low sodium. The metolazone as well. (6) Acute hyponatremia: Code(s): E87.1 - Hypo-osmolality and hyponatremia Status: Acute (7) Acute hypokalemia: Code(s): E87.6 - Hypokalemia Status: Acute Assessment and Plan: It has been replaced in all check her BMP now. (8) Acute renal insufficiency: Code(s): N28.9 - Disorder of kidney and ureter, unspecified Status: Acute Assessment and Plan: Most likely due to dehydration. I am holding her Lasix and metolazone at this time. Subjective Date/time seen: 08/13/20 16:39 08/12 Patient 84-year-old female presented emergency department with a complaint of epigastric pain and dry heaving patient had a CT scan of abdomen suggestive cholecystitis patient will be seen by GI and further recommendation to follow, GI did an suspect is infection and does not recommend antibiotic, to further evaluate MRCP it showed: 1. Moderate intrahepatic and extrahepatic biliary duct dilatation. 13 x 5 x 9 mm dependent nonobstructing mass in the common bile duct, likely sludge. Consider ERCP. 2. Dependent material in the gallbladder, likely sludge. 3. Gallbladder distention again seen. Correlate with physical exam to exclude acute cholecystitis. Consider HIDA scan. Patient be seen by GI and further recommendation to follow, patient states feeling much better compared to when she arrived denies any nausea or vomiting fever or chills. 08/13
[2020-08-13] MEDS: traMADol HCL (*CRX) 50 MG TABLET PO ×2 (16:52→21:36)
[2020-08-13] MEDS: SODIUM CHLORIDE 0.9% IV 1,000 ML 80 ML IV CONT (21:32)
[2020-08-14] VITALS: BP 127/47; PULSE 75; RESP 20; TEMP 36.6; O2SAT 92
--- NOTE | 2020-08-14 | ECHO_ITS ---
Patient Info Name: Isabel Monzon Age: 85 years : 1935 Gender: Female Ht: 64 in Wt: 199 lbs BSA: 2.06 m2 HR: 75 bpm BP: 145 / 70 mmHg Heart Rhythm: Sinus Rhythm Technical Quality: Good Exam Date: 08/14/2020 1:16 PM Exam Location: [facility] Pulmonary Patient Status: Inpatient Admit Date: 08/11/2020 Staff Ordering Physician: Wayne Rico MD Insurance Loss Assessor: Avila Dorado, ANA, RT Attending Provider: Wayne Rico MD Exam Type: CA echo doppler color flow Study Info Indications Z01.818 - Encounter for other preprocedural examination Complete two-dimensional, color flow and Doppler transthoracic echocardiogram is performed. Strain analysis performed. Summary 1. Complete two-dimensional, color flow and Doppler transthoracic echocardiogram is performed. 2. Left ventricular chamber dimension is normal. 3. Left ventricular systolic function is normal, estimated at 60-65%. 4. Right ventricular chamber dimension is mildly enlarged. 5. Left atrial chamber dimension is moderately enlarged. 6. There is mild aortic valve sclerosis. Left Ventricle Left ventricular chamber dimension is normal. Left ventricular systolic function is normal, estimated at 60-65%. The left ventricular diastolic function is grade I diastolic dysfunction. Right Ventricle Right ventricular chamber dimension is mildly enlarged. Left Atria Left atrial chamber dimension is moderately enlarged. Right Atria Right atrial chamber dimension is normal. Aortic Valve The aortic valve is trileaflet. There is mild aortic valve sclerosis. Pulmonic Valve The pulmonic valve is not well visualized. Mitral Valve The mitral valve has normal leaflets. The mitral valve annulus is mildly calcified. Tricuspid Valve The tricuspid valve leaflets are normal. Pericardium/Pleural The pericardium appears normal. Aorta The aortic root size at the sinus of Valsalva is normal. Left Ventricular Outflow Tract Name Value Normal LVOT 2D LVOT Diameter 2.0 cm LVOT Doppler LVOT Peak Gradient 4 mmHg LVOT Mean Gradient 2 mmHg LVOT VTI 17 cm LVOT VTI/AV VTI Ratio 0.5 LVOT Stroke Volume 54 ml LVOT CO 4.1 l/min LVOT CI 2.0 l/min/m2 Mitral Valve Name Value Normal MV Doppler MV Decel Wolfe 220 cm/s2 MV PHT 78 ms MV Area (PHT) 2.8 cm2 4.0-5.0 MV Diastolic Function MV E Peak Velocity 59 cm/s MV A Peak Velocity 82 cm/s MV E/A
[2020-08-14 04:00] VITALS: BP 145/70; PULSE 85; RESP 20; TEMP 36.2; O2SAT 95
[2020-08-14] MEDS: LEVOTHYROXINE SODIUM 100 MCG TABLET 200 MCG PO (06:11)
[2020-08-14 06:17] LABS: Hematocrit 39.1 % (37.0-47.0); Hemoglobin 12.9 g/dL (12.0-15.0); Mean Corpuscular Hemoglobin 31.9 pg (26-34); Mean Corpuscular Volume 96.5 fl (80-100); Mean Platelet Volume 9.7 fl (7.4-10.4); Platelet Count Result 209 k/mm3 (150-375); Red Blood Count 4.05 M/mm3 (4.2-5.4); Red Cell Distribution Width 13.2 % (11.5-14.5); White Blood Count 16.9 K/mm3 (4.5-10.0)
[2020-08-14 06:27] LABS: Alanine Aminotransferase 81 U/L (4-35); Albumin Level 2.9 g/dL (3.5-5.1); Alkaline Phosphatase 296 U/L (38-126); Anion Gap 3 mmol/L (8-16); Aspartate Amino Transferase 156 U/L (14-36); Bilirubin,Total 0.7 mg/dL (0.2-1.3); Blood Urea Nitrogen 11 mg/dL (7-17); Calcium 8.3 mg/dL (8.4-10.2); Carbon Dioxide 30 mmol/L (22-30); Chloride 99 mmol/L (98-107); Estimated CRCL calculation 50 ml/min; Estimated Glomerular Filt Rate > 60; Glucose 92 mg/dL (65-105); Magnesium 1.5 mg/dL (1.6-2.3); Potassium 3.7 mmol/L (3.4-5.0); Sodium 132 mmol/L (137-145)
[2020-08-14] MEDS: FAMOTIDINE 20 MG/2 ML VIAL IV PUSH ×2 (08:31→20:12)
[2020-08-14] MEDS: FLUTICASONE PROPIONATE 0.05% NA SPR 16 GM BTL (*BKC) 1 SPRAY NASAL (08:32)
--- NOTE | 2020-08-14 08:34 | WPDANESPN ---
Anes - Prog Note Post-Op Date/Time: 08/14/20 08:34 Cardiovascular status: normal Respiratory status: normal Airway patency: baseline Mental status: baseline Post-Op hydration status: normal Vital Signs: Last Vital Signs Temp 97.2 F L 08/14/20 04:00 Pulse 85 08/14/20 04:00 Resp 20 08/14/20 04:00 BP 145/70 H 08/14/20 04:00 Pulse Ox 95 08/14/20 04:00 Pain Score (VAS): 0 I/O: Intake & Output 08/13/20 08/14/20 08/14/20 23:59 07:59 15:59 Intake Total 370 200 Output Total 650 400 Balance -280 -200 Laboratory Tests 08/14/20 05:59 08/14/20 05:59 08/14/20 08/14/20 05:59 05:59 WBC 16.9 H RBC 4.05 L Hgb 12.9 Hct 39.1 MCV 96.5 MCH 31.9 MCHC 33.0 RDW 13.2 Plt Count 209 MPV 9.7 Sodium 132 L Potassium 3.7 Chloride 99 Carbon Dioxide 30 Anion Gap 3 L BUN 11 D Creatinine 0.80 Estim Creat Clear Calc 50 Estimated GFR > 60 Glucose 92 Calcium 8.3 L Magnesium 1.5 L Total Bilirubin 0.7 AST 156 H ALT 81 H Alkaline Phosphatase 296 H Total Protein 6.0 L Albumin 2.9 L Microbiology 08/12/20 16:29 Blood Blood Culture - Preliminary 08/12/20 16:29 Blood Blood Culture - Preliminary Post-procedural complaints: none Patient Feedback: Patient satisfied with anesthetic care.
[2020-08-14] MEDS: MAGNESIUM SULF 2 GM/WATER 50ML 2 GM/50 ML BAG IVPB (10:35)
--- NOTE | 2020-08-14 12:50 | ECG_ITS ---
Measurements Intervals [place] Rate: 75 P: 44 WV: 182 QRS: -16 QRSD: 96 T: -10 QT: 388 QTc: 436 Interpretive Statements SINUS RHYTHM LOW QRS VOLTAGE IN PRECORDIAL LEADS VOLTAGE CRITERIA FOR LVH BORDERLINE ST-T WAVE ABNORMALITY- ANTEROLAT/INF LEADS BASELINE ARTIFACT- I, II, III, AVR, AVL, AVF, V1, V3 BORDERLINE ECG Electronically Signed On 08-14-2020 17:31:16 CDT by Erick Zamora D.O.
--- NOTE | 2020-08-14 13:15 | PM.IMPN ---
Progress Note: A&P Assessment and Plan (1) Urinary tract infection: Code(s): N39.0 - Urinary tract infection, site not specified Status: Acute Assessment and Plan: Continue with Rocephin. Monitor urine cultures. Patient is having dry heaves which could either be from the gallbladder or from urinary tract infection. She does not appear to be septic. Her white count 16.5. Blood pressure is 122/68. Heart rate 78. (2) Dysfunctional gallbladder: Code(s): K82.8 - Other specified diseases of gallbladder Status: Acute Assessment and Plan: The patient has intrahepatic and extrahepatic biliary duct dilatation. Patient is scheduled for an Mrcp tomorrow. And GI has been consulted. 08/14/20 13:15 08/12 Patient 84-year-old female presented emergency department with a complaint of epigastric pain and dry heaving patient had a CT scan of abdomen suggestive cholecystitis patient will be seen by GI and further recommendation to follow, GI did an suspect is infection and does not recommend antibiotic, to further evaluate MRCP it showed: 1. Moderate intrahepatic and extrahepatic biliary duct dilatation. 13 x 5 x 9 mm dependent nonobstructing mass in the common bile duct, likely sludge. Consider ERCP. 2. Dependent material in the gallbladder, likely sludge. 3. Gallbladder distention again seen. Correlate with physical exam to exclude acute cholecystitis. Consider HIDA scan. Patient be seen by GI and further recommendation to follow, patient states feeling much better compared to when she arrived denies any nausea or vomiting fever or chills. 08/13 today patient was seen by GI and had a ERCP showed sludge and which was irrigated and cleaned, there was no mass or stone found, patient states is still slightly nauseated after the procedure but denies any fever or chills denies abdominal pain, will continue to monitor patient reassess in the morning and further recommendation to follow. 08/14 patient 85-year-old female status post ERCP on 08/13 which was irrigated and cleared there was no mass or stone found, today patient states feeling much better nausea and dry heaves have resolved, feels hungry and wants to eat, patient was seen surgery service suggesting patient may benefit from cholecystectomy down the road initially we can treat medically and there is no improvement may consider surgery, will do the EKG and cardiac echo for preop evaluation. (3) Hypothyroidism: Code(s): E03.9 - Hypothyroidism, unspecified Status: Chronic Assessment and Plan: Check thyroid level. (4) Hyperlipidemia: Code(s): E78.5 - Hyperlipidemia, unspecified Status: Chronic Assessment and Plan: I am holding the atorvastatin (5) Hypertension: Code(s): I10 - Essential (primary) hypertension Status: Chronic Assessment and Plan: I am holding the amlodipine as patient has a soft blood pressure I am holding Lasix due to her renal failure and low potassium and low sodium. The metolazone as well. (6) Acute hyponatremia: Code(s): E87.1 - Hypo-osmolality and hyponatremia Status: Acute (7) Acute hypokalemia: Code(s): E87.6 - Hypokalemia Status: Acute Assessment and Plan: It has been replaced in all check her BMP now. (8) Acute renal insufficiency: Code(s): N28.9 - Disorder of kidney and ureter, unspecified Status: Acute Assessment and Plan: Most likely due to dehydration. I am holding her Lasix and metolazone at this time. Subjective Date/time seen: 08/14/20 13:15 08/12 Patient 84-year-old female presented emergency department with a complaint of epigastric pain and dry heaving patient had a CT scan of abdomen suggestive cholecystitis patient will be seen by GI and further recommendation to follow, GI did an suspect is infection and does not recommend antibiotic, to further evaluate MRCP it showed: 1. Moderate intrahepatic and extrahepatic dalia
[2020-08-14 14:00] VITALS: BP 121/45; PULSE 79; RESP 16; TEMP 36.6; O2SAT 94
--- NOTE | 2020-08-14 15:48 | WPDGIPROGNO ---
Progress Note: A&P Assessment and Plan (1) Common bile duct dilatation: Code(s): K83.8 - Other specified diseases of biliary tract Status: Acute Assessment and Plan: ercp with cholangioscopy showed biliary sludge and thick bile but no definitive stones, stricture or mass, performed sphincterotomy mild elevated liver enzymes but expected after ercp continue to monitor (2) Biliary sludge: Code(s): K83.8 - Other specified diseases of biliary tract Status: Acute Assessment and Plan: will ask surgery to evaluate in the meantime ursodiol and advance diet as tolerated (3) Dysfunctional gallbladder: Code(s): K82.8 - Other specified diseases of gallbladder Status: Acute (4) Urinary tract infection: Code(s): N39.0 - Urinary tract infection, site not specified Status: Acute Assessment and Plan: on abx (5) Leukocytosis: Code(s): D72.829 - Elevated white blood cell count, unspecified Status: Acute (6) Nausea: Code(s): R11.0 - Nausea Status: Acute Subjective Date/time seen: 08/14/20 15:48 Interval history: she had pain after ercp but comfortable today Review of Systems Review of Systems: All systems reviewed & are unremarkable except as noted in HPI and below Exam Const: General: comfortable and no acute distress HENMT: General nose exam: Normal nares present Eyes: General: appearance normal, both eyes and all related structures Neck: Neck: supple Resp: Effort & Inspection: normal respiratory effort Cardio: Rate: regular rate GI: Inspection: non-distended GI Palp: Yes Soft to palpation, No Tenderness to palpation present (GI) and No Guarding due to palpation present (GI) Auscultation: normal bowel sounds Skin: General skin exam: normal color Neuro: Speech: normal speech Extrem: General: normal to inspection Psych: Affect: normal affect Objective Data Vital Signs Vital Signs: Vital Signs - 24 hr 08/13/20 16:30 08/13/20 20:00 08/14/20 00:00 Temperature 97.2 F L 97.4 F L 97.8 F Pulse Rate 69 72 75 Respiratory Rate 20 20 20 Blood Pressure 104/81 126/44 L 127/47 L Pulse Oximetry 98 91 92 08/14/20 04:00 08/14/20 14:00 Temperature 97.2 F L 98 F Pulse Rate 85 79 Respiratory Rate 20 16 Blood Pressure 145/70 H 121/45 L Pulse Oximetry 95 94 Intake/Output Intake/Output: Intake & Output 08/11/20 08/12/20 08/13/20 08/14/20 23:59 23:59 23:59 23:59 Intake Total 2200 1690 1420 1490 Output Total 2250 1850 400 Balance 2200 -560 -430 1090 Meds/Results Medications: Active Medications Generic Name Dose Route Start Last Admin Trade Name Freq PRN Reason Stop Dose Admin Dextrose 12.5 gm 08/11/20 18:11 Dextrose 50% 25 Gm/50 Ml Syringe IV PUSH PRN PRN Hypoglycemia Protocol Famotidine 20 mg 08/11/20 21:00 08/14/20 08:31 Famotidine 20 Mg/2 Ml Vial IV PUSH 20 mg Q12HR SANDRA Administration Fluticasone Propionate 1 spray 08/12/20 09:00 08/14/20 08:32 Fluticasone Propionate 0.05% Na Spr 16 Gm Btl (*Bkc) NASAL 1 spray DAILY SANDRA Administration Glucagon 1 mg 08/11/20 18:11 Glucagon For Inj 1 Mg Vial IM PRN PRN Hypoglycemia Protocol Ceftriaxone Sodium/Dextrose 1 gm in 50 mls @ 100 mls/hr 08/12/20 09:00 08/14/20 09:01 Rocephin 1 Gm/D5w 50 Ml IVPB Infused Q24H SANDRA Infusion Levothyroxine Sodium 200 mcg 08/12/20 06:30 08/14/20 06:11 Levothyroxine Sodium 100 Mcg Tablet PO 200 mcg DAILY@0630 SANDRA Administration Ondansetron HCl 4 mg 08/11/20 18:11 08/12/20 04:24 Ondansetron Inj 4 Mg/2 Ml Vial IV PUSH 4 mg Q4H PRN Administration Nausea Tramadol HCl 50 mg 08/11/20 21:45 08/13/20 21:36 Tramadol Hcl (*Crx) 50 Mg Tablet PO 50 mg Q4H PRN Administration Severe Pain (Scale Score 7-10) Ursodiol 300 mg 08/14/20 21:00 Ursodiol 300 Mg Capsule PO Q12HR [facility] Radiology Results: ITS Impressions
--- NOTE | 2020-08-14 16:03 | PM.CNGS ---
Assessment and Plan Assessment and plan (1) Leukocytosis: Onset Date: Unknown Code(s): D72.829 - Elevated white blood cell count, unspecified Status: Acute Assessment and Plan: patient's white count still 16,000 today. She has been receiving antibiotics for urinary tract infection. Any infection the biliary tract should clear now that she has good drainage. (2) Biliary sludge: Onset Date: ~08/2020 Code(s): K83.8 - Other specified diseases of biliary tract Status: Acute Assessment and Plan: Patient has gallbladder sludge on MRCP. The sludge has been released from her bile duct now and she has a stent in place. I discussed with her the options of laparoscopic cholecystectomy under general anesthesia versus treatment with Actigall. Certainly she has some risk of have any Actigall cause some mild liver damage if used long-term. However, this probably a safer alternative for her to try to clear sludge from her gallbladder and dissolve it while she has stent in place. Should she have further problems cholecystectomy could be held in reserve to do for her if this does not work. She will talk to her POA about the risks of general anesthesia. She was rated as ASA 3 level risk for anesthesia when she had her MRCP ERCP. Certainly she is at risk for heart attack stroke or postop pneumonia if she had a general anesthesia. We have the luxury of temporization in that she has statin place and should do well. I would suggest that we give her a trial of Actigall. She will then consider her options in view of the fact that she will have somewhat increased risk for surgery and general anesthesia. I think she is a good candidate for laparoscopic cholecystectomy in that she has not had previous abdominal surgery. I have discussed this with her Medicine attending doctor after F. He will do EKG under during this admission and start to evaluate her heart health and risk for general anesthesia. For now we will plan to start her on Actigall see how she tolerates this and hopefully back to her care center on that for a month she could then decide whether not she wants to take the risks of having a general anesthesia and the gallbladder removed. (3) Urinary tract infection: Onset Date: ~08/2020 Code(s): N39.0 - Urinary tract infection, site not specified Status: Acute (4) Hypothyroidism: Onset Date: Unknown Code(s): E03.9 - Hypothyroidism, unspecified Status: Chronic Assessment and Plan: TSH was quite low so her dose of levothyroxine may be able could be cut in half and have follow-up labs. (5) Hyperlipidemia: Onset Date: Unknown Code(s): E78.5 - Hyperlipidemia, unspecified Status: Chronic Assessment and Plan: Patient continues to follow with her PCP regarding this and she is on medication for it chronically. (6) Hypertension: Onset Date: Unknown Code(s): I10 - Essential (primary) hypertension Status: Chronic Assessment and Plan: Patient continues on her home medication for this. (7) Acute hyponatremia: Onset Date: Unknown Code(s): E87.1 - Hypo-osmolality and hyponatremia Status: Acute Assessment and Plan: I believe the patient is receiving normal saline IV fluids this will be held and her IV saline lock once she has tolerated starts tolerating the diet. I believe she has been moved up to a low-fat diet. Will repeat hepatic panel tomorrow morning and BMP is already ordered. Additional Plan 1. Start Actigall 2. Discussed possible risks of surgery with patient and Dr. Rico. He will get an EKG and evaluate her cardiac risk. 3. His start Actigall and recheck a patent panel in the morning 4. Probably return to her care center and try Actigall for 1 month with repeat labs and a read discussion regarding whether not she is a good candidate for a general anesthesia and laparoscopic cho
[2020-08-14] MEDS: ursodioL 300 MG CAPSULE PO (20:12)
[2020-08-14] MEDS: traMADol HCL (*CRX) 50 MG TABLET PO (20:12)
[2020-08-14 21:32] VITALS: BP 136/56; PULSE 73; RESP 18; TEMP 37.5; O2SAT 95
[2020-08-15 06:00] VITALS: BP 123/48; PULSE 83; RESP 18; TEMP 36.8; O2SAT 93
[2020-08-15] MEDS: LEVOTHYROXINE SODIUM 100 MCG TABLET 200 MCG PO (06:24)
[2020-08-15 06:31] LABS: Hematocrit 38.7 % (37.0-47.0); Hemoglobin 12.6 g/dL (12.0-15.0); Mean Corpuscular HGB Conc 32.6 g/dl (32-36); Mean Corpuscular Hemoglobin 31.4 pg (26-34); Mean Corpuscular Volume 96.5 fl (80-100); Platelet Count Result 205 k/mm3 (150-375); Red Blood Count 4.01 M/mm3 (4.2-5.4); Red Cell Distribution Width 13.1 % (11.5-14.5); White Blood Count 12.3 K/mm3 (4.5-10.0)
[2020-08-15 06:46] LABS: Alanine Aminotransferase 58 U/L (4-35); Albumin Level 3.1 g/dL (3.5-5.1); Alkaline Phosphatase 290 U/L (38-126); Anion Gap 4 mmol/L (8-16); Aspartate Amino Transferase 87 U/L (14-36); Bilirubin,Total 0.4 mg/dL (0.2-1.3); Blood Urea Nitrogen 12 mg/dL (7-17); Calcium 8.5 mg/dL (8.4-10.2); Carbon Dioxide 31 mmol/L (22-30); Chloride 98 mmol/L (98-107); Estimated CRCL calculation 50 ml/min; Estimated Glomerular Filt Rate > 60; Glucose 92 mg/dL (65-105); Magnesium 1.6 mg/dL (1.6-2.3); Potassium 3.5 mmol/L (3.4-5.0); Sodium 133 mmol/L (137-145)
[2020-08-15] MEDS: ursodioL 300 MG CAPSULE PO ×2 (08:19→20:19)
[2020-08-15] MEDS: FLUTICASONE PROPIONATE 0.05% NA SPR 16 GM BTL (*BKC) 1 SPRAY NASAL (08:19)
[2020-08-15] MEDS: FAMOTIDINE 20 MG/2 ML VIAL IV PUSH ×2 (08:19→20:19)
--- NOTE | 2020-08-15 08:27 | PM.PNGS ---
Progress Note: A&P Assessment and Plan (1) Biliary sludge: Onset Date: ~08/2020 Code(s): K83.8 - Other specified diseases of biliary tract Status: Acute Assessment and Plan: Noted on MRCP and at ERCP. Patient has start Actigall with no ill effects. Liver function tests about the same today although bilirubin is normal. (2) Urinary tract infection: Onset Date: ~08/2020 Code(s): N39.0 - Urinary tract infection, site not specified Status: Acute Assessment and Plan: Cultures pending. Patient on antibiotics. Apparently needs a Zhu however intermittent catheterization may be a alternative if it is felt that catheter contributed to the infection. (3) Leukocytosis: Onset Date: Unknown Code(s): D72.829 - Elevated white blood cell count, unspecified Status: Acute Assessment and Plan: Improved today while on antibiotics. Unknown etiology. Additional Plan 1. For now will plan to treat with Actigall. 2. Appreciate medical workup for cardiac clearance. If patient and POA agree to accept the increased risk of her age and comorbidities with obesity and hypertension we could plan an interval cholecystectomy in a couple weeks if they wish. 3. Okay with me to go back to her care center whenever medically stable. Subjective Subjective Date/Time Seen: 08/15/20 08:27 Patient states she feels okay. Now tolerating low-fat diet. Had EKG and echocardiogram yesterday. Review of Systems Constitutional: Constitutional: Reports no additional constitutional complaints ENT: Reports other (Mucous Membranes moist.) Cardiovascular: Cardiovascular: Denies dyspnea Respiratory: Respiratory: Denies pain on inspiration and Denies dyspnea Gastrointestinal: Gastrointestinal: Reports no additional gastrointestinal complaints, Denies abdominal pain and Denies nausea Genitourinary: Comments: Has Zhu in due to incontinence and immobility. (UTI suspected). Musculoskeletal: Musculoskeletal: Reports other (No calf swelling or edema) Comments: Seems to be weak. Integumentary/Breasts: Skin/Breast: Reports system reviewed and no additional complaints, except as docu Psychiatric: Psychiatric: Reports no additional psychiatric complaints Exam Const: General: cooperative, no acute distress, alert and awake Orientation/consciousness: patient oriented x3 HENMT: Mouth: Yes moist mucous membranes Neck: Neck: normal visual inspection Chest: Chest palpation & inspection: normal inspection of the chest Resp: Effort & Inspection: normal respiratory effort Auscultation: clear to auscultation bilaterally Cardio: Jugular venous distension: no JVD Rate: regular rate Rhythm: regular rhythm GI: Inspection: Pannus present and obesity GI Palp: No abdominal tenderness Auscultation: normal bowel sounds Rectal Exam: deferred Urinary Catheter: Urinary Catheter: patent and draining and urine clear Neuro: General: patient oriented x3 and moves all extremities Speech: normal speech Extrem: General: normal exam except as noted Psych: Mental Status: mental status grossly normal Speech and movement: Normal speech and movement present Affect: normal affect Thought content: Yes Normal thought content present Objective Data Vital Signs Vital Signs: Vital Signs - 24 hr 08/14/20 14:00 08/14/20 21:32 08/15/20 06:00 Temperature 36.6 C 37.5 C 36.8 C Pulse Rate 79 73 83 Respiratory Rate 16 18 18 Blood Pressure 121/45 L 136/56 L 123/48 L Pulse Oximetry 94 95 93 Intake/Output Intake/Output: Intake & Output 08/12/20 08/13/20 08/14/20 08/15/20 23:59 23:59 23:59 23:59 Intake Total 1690 1420 2450 750 Output Total 2250 1850 1200 1600 Balance -560 -430 1250 -850 Meds/Results Medications: Active Medications Generic Name Dose Route Start Last Admin Trade Name Ashq PRN Reason Stop Dose Admin Dextrose 12.5 gm 08/11/20 18:11 Dextrose 50% 25 Gm/50 Ml Syringe IV PUSH P
--- NOTE | 2020-08-15 13:26 | WPDGIPROGNO ---
Progress Note: A&P Assessment and Plan (1) Common bile duct dilatation: Code(s): K83.8 - Other specified diseases of biliary tract Status: Acute Assessment and Plan: ercp with cholangioscopy showed biliary sludge and thick bile but no definitive stones, stricture or mass, performed sphincterotomy mild elevated liver enzymes but expected after ercp- trending down and denies pain continue to monitor can be discharged soon- she would like to get PT (2) Biliary sludge: Onset Date: ~08/2020 Code(s): K83.8 - Other specified diseases of biliary tract Status: Acute Assessment and Plan: evaluated by surgery agree with usol and low fat diet if more symptomatic then can follow up with surgery (3) Dysfunctional gallbladder: Code(s): K82.8 - Other specified diseases of gallbladder Status: Acute (4) Urinary tract infection: Onset Date: ~08/2020 Code(s): N39.0 - Urinary tract infection, site not specified Status: Acute Assessment and Plan: on abx (5) Leukocytosis: Onset Date: Unknown Code(s): D72.829 - Elevated white blood cell count, unspecified Status: Acute (6) Nausea: Code(s): R11.0 - Nausea Status: Acute Subjective Date/time seen: 08/15/20 13:26 Interval history: doing well, tolerating diet, no abdominal mikie c/o chronic pain in hip (unchanged) Review of Systems Review of Systems: All systems reviewed & are unremarkable except as noted in HPI and below Exam Const: General: comfortable and no acute distress HENMT: General nose exam: Normal nares present Eyes: General: appearance normal, both eyes and all related structures Neck: Neck: supple Resp: Effort & Inspection: normal respiratory effort Cardio: Rate: regular rate GI: Inspection: non-distended GI Palp: Yes Soft to palpation, No Tenderness to palpation present (GI) and No Guarding due to palpation present (GI) Auscultation: normal bowel sounds Skin: General skin exam: normal color Neuro: Speech: normal speech Extrem: General: normal to inspection Psych: Affect: normal affect Objective Data Vital Signs Vital Signs: Vital Signs - 24 hr 08/14/20 14:00 08/14/20 21:32 08/15/20 06:00 Temperature 98 F 99.5 F 98.3 F Pulse Rate 79 73 83 Respiratory Rate 16 18 18 Blood Pressure 121/45 L 136/56 L 123/48 L Pulse Oximetry 94 95 93 Intake/Output Intake/Output: Intake & Output 08/12/20 08/13/20 08/14/20 08/15/20 23:59 23:59 23:59 23:59 Intake Total 1690 1420 2450 1110 Output Total 2250 1850 1200 1600 Balance -560 -430 1250 -490 Meds/Results Medications: Active Medications Generic Name Dose Route Start Last Admin Trade Name Freq PRN Reason Stop Dose Admin Dextrose 12.5 gm 08/11/20 18:11 Dextrose 50% 25 Gm/50 Ml Syringe IV PUSH PRN PRN Hypoglycemia Protocol Famotidine 20 mg 08/11/20 21:00 08/15/20 08:19 Famotidine 20 Mg/2 Ml Vial IV PUSH 20 mg Q12HR SANDRA Administration Fluticasone Propionate 1 spray 08/12/20 09:00 08/15/20 08:19 Fluticasone Propionate 0.05% Na Spr 16 Gm Btl (*Bkc) NASAL 1 spray DAILY SANDRA Administration Glucagon 1 mg 08/11/20 18:11 Glucagon For Inj 1 Mg Vial IM PRN PRN Hypoglycemia Protocol Ceftriaxone Sodium/Dextrose 1 gm in 50 mls @ 100 mls/hr 08/12/20 09:00 08/15/20 08:19 Rocephin 1 Gm/D5w 50 Ml IVPB 100 mls/hr Q24H SANDRA Administration Levothyroxine Sodium 200 mcg 08/12/20 06:30 08/15/20 06:24 Levothyroxine Sodium 100 Mcg Tablet PO 200 mcg DAILY@0630 SANDRA Administration Ondansetron HCl 4 mg 08/11/20 18:11 08/12/20 04:24 Ondansetron Inj 4 Mg/2 Ml Vial IV PUSH 4 mg Q4H PRN Administration Nausea Tramadol HCl 50 mg 08/11/20 21:45 08/14/20 20:12 Tramadol Hcl (*Crx) 50 Mg Tablet PO 50 mg Q4H PRN Administration Severe Pain (Scale Score 7-10) Ursodiol 300 mg 08/14/20 21:00 08/15/20 08:19
--- NOTE | 2020-08-15 13:35 | PM.IMPN ---
Progress Note: A&P Assessment and Plan (1) Urinary tract infection: Onset Date: ~08/2020 Code(s): N39.0 - Urinary tract infection, site not specified Status: Acute Assessment and Plan: Continue with Rocephin. Monitor urine cultures. Patient is having dry heaves which could either be from the gallbladder or from urinary tract infection. She does not appear to be septic. Her white count 16.5. Blood pressure is 122/68. Heart rate 78. (2) Dysfunctional gallbladder: Code(s): K82.8 - Other specified diseases of gallbladder Status: Acute Assessment and Plan: The patient has intrahepatic and extrahepatic biliary duct dilatation. Patient is scheduled for an Mrcp tomorrow. And GI has been consulted. 08/15/20 13:35 08/12 Patient 84-year-old female presented emergency department with a complaint of epigastric pain and dry heaving patient had a CT scan of abdomen suggestive cholecystitis patient will be seen by GI and further recommendation to follow, GI did an suspect is infection and does not recommend antibiotic, to further evaluate MRCP it showed: 1. Moderate intrahepatic and extrahepatic biliary duct dilatation. 13 x 5 x 9 mm dependent nonobstructing mass in the common bile duct, likely sludge. Consider ERCP. 2. Dependent material in the gallbladder, likely sludge. 3. Gallbladder distention again seen. Correlate with physical exam to exclude acute cholecystitis. Consider HIDA scan. Patient be seen by GI and further recommendation to follow, patient states feeling much better compared to when she arrived denies any nausea or vomiting fever or chills. 08/13 today patient was seen by GI and had a ERCP showed sludge and which was irrigated and cleaned, there was no mass or stone found, patient states is still slightly nauseated after the procedure but denies any fever or chills denies abdominal pain, will continue to monitor patient reassess in the morning and further recommendation to follow. 08/14 patient 85-year-old female status post ERCP on 08/13 which was irrigated and cleared there was no mass or stone found, today patient states feeling much better nausea and dry heaves have resolved, feels hungry and wants to eat, patient was seen surgery service suggesting patient may benefit from cholecystectomy down the road initially we can treat medically and there is no improvement may consider surgery, will do the EKG and cardiac echo for preop evaluation. 08/15 patient 85-year-old female status post ERCP on 08/13 which was irrigated and cleared there was no mass or stone found. Patient is seen by surgery service suspect cholecystitis plan is to treat the patient with Actigall for 2-3 weeks if there is improvement in the symptoms patient may not require surgical intervention, today patient states see does have dry heaves on and off but denies abdominal pain or vomiting, Preop evaluation patient had a cardiac echo essentially normal with ejection fraction of 60-65% grade 1 diastolic discharge, EKG did not show any acute change, there are no contraindication for surgical intervention. (3) Hypothyroidism: Onset Date: Unknown Code(s): E03.9 - Hypothyroidism, unspecified Status: Chronic Assessment and Plan: Check thyroid level. (4) Hyperlipidemia: Onset Date: Unknown Code(s): E78.5 - Hyperlipidemia, unspecified Status: Chronic Assessment and Plan: I am holding the atorvastatin (5) Hypertension: Onset Date: Unknown Code(s): I10 - Essential (primary) hypertension Status: Chronic Assessment and Plan: I am holding the amlodipine as patient has a soft blood pressure I am holding Lasix due to her renal failure and low potassium and low sodium. The metolazone as well. (6) Acute hyponatremia: Onset Date: Unknown Code(s): E87.1 - Hypo-osmolality and hyponatremia Status: Acute (7) Acute hypokalemia: Code(s): E87.6 - H
[2020-08-15 14:00] VITALS: BP 122/62; PULSE 82; RESP 18; TEMP 36.6; O2SAT 96
[2020-08-15] MEDS: traMADol HCL (*CRX) 50 MG TABLET PO (20:19)
[2020-08-15 21:49] VITALS: BP 134/60; PULSE 84; RESP 18; TEMP 36.5; O2SAT 94
[2020-08-16 06:00] VITALS: BP 121/58; PULSE 77; RESP 18; TEMP 36.8; O2SAT 92
[2020-08-16] MEDS: LEVOTHYROXINE SODIUM 100 MCG TABLET 200 MCG PO (06:12)
[2020-08-16 06:50] LABS: Hematocrit 40.1 % (37.0-47.0); Hemoglobin 12.9 g/dL (12.0-15.0); Mean Corpuscular HGB Conc 32.2 g/dl (32-36); Mean Corpuscular Hemoglobin 31.2 pg (26-34); Mean Corpuscular Volume 96.9 fl (80-100); Mean Platelet Volume 10.2 fl (7.4-10.4); Platelet Count Result 206 k/mm3 (150-375); Red Blood Count 4.14 M/mm3 (4.2-5.4); White Blood Count 10.3 K/mm3 (4.5-10.0)
[2020-08-16 07:02] LABS: Anion Gap 4 mmol/L (8-16); Blood Urea Nitrogen 11 mg/dL (7-17); Calcium 8.8 mg/dL (8.4-10.2); Carbon Dioxide 31 mmol/L (22-30); Chloride 98 mmol/L (98-107); Estimated CRCL calculation 57 ml/min; Estimated Glomerular Filt Rate > 60; Glucose 93 mg/dL (65-105); Magnesium 1.3 mg/dL (1.6-2.3); Potassium 3.6 mmol/L (3.4-5.0); Sodium 133 mmol/L (137-145)
[2020-08-16] MEDS: MAGNESIUM SULF 2 GM/WATER 50ML 2 GM/50 ML BAG IVPB (08:08)
[2020-08-16] MEDS: POTASSIUM CHLORIDE 20 MEQ TABLET 40 MEQ PO (08:08)
[2020-08-16] MEDS: ursodioL 300 MG CAPSULE PO ×2 (08:11→20:49)
[2020-08-16] MEDS: FAMOTIDINE 20 MG/2 ML VIAL IV PUSH (08:12)
[2020-08-16] MEDS: FLUTICASONE PROPIONATE 0.05% NA SPR 16 GM BTL (*BKC) 1 SPRAY NASAL (08:12)
--- NOTE | 2020-08-16 11:26 | PM.IMPN ---
Progress Note: A&P Assessment and Plan (1) Urinary tract infection: Onset Date: ~08/2020 Code(s): N39.0 - Urinary tract infection, site not specified Status: Acute Assessment and Plan: Continue with Rocephin. Monitor urine cultures. Patient is having dry heaves which could either be from the gallbladder or from urinary tract infection. She does not appear to be septic. Her white count 16.5. Blood pressure is 122/68. Heart rate 78. (2) Dysfunctional gallbladder: Code(s): K82.8 - Other specified diseases of gallbladder Status: Acute Assessment and Plan: The patient has intrahepatic and extrahepatic biliary duct dilatation. Patient is scheduled for an Mrcp tomorrow. And GI has been consulted. 08/16/20 11:26 08/12 Patient 84-year-old female presented emergency department with a complaint of epigastric pain and dry heaving patient had a CT scan of abdomen suggestive cholecystitis patient will be seen by GI and further recommendation to follow, GI did an suspect is infection and does not recommend antibiotic, to further evaluate MRCP it showed: 1. Moderate intrahepatic and extrahepatic biliary duct dilatation. 13 x 5 x 9 mm dependent nonobstructing mass in the common bile duct, likely sludge. Consider ERCP. 2. Dependent material in the gallbladder, likely sludge. 3. Gallbladder distention again seen. Correlate with physical exam to exclude acute cholecystitis. Consider HIDA scan. Patient be seen by GI and further recommendation to follow, patient states feeling much better compared to when she arrived denies any nausea or vomiting fever or chills. 08/13 today patient was seen by GI and had a ERCP showed sludge and which was irrigated and cleaned, there was no mass or stone found, patient states is still slightly nauseated after the procedure but denies any fever or chills denies abdominal pain, will continue to monitor patient reassess in the morning and further recommendation to follow. 08/14 patient 85-year-old female status post ERCP on 08/13 which was irrigated and cleared there was no mass or stone found, today patient states feeling much better nausea and dry heaves have resolved, feels hungry and wants to eat, patient was seen surgery service suggesting patient may benefit from cholecystectomy down the road initially we can treat medically and there is no improvement may consider surgery, will do the EKG and cardiac echo for preop evaluation. 08/15 patient 85-year-old female status post ERCP on 08/13 which was irrigated and cleared there was no mass or stone found. Patient is seen by surgery service suspect cholecystitis plan is to treat the patient with Actigall for 2-3 weeks if there is improvement in the symptoms patient may not require surgical intervention, today patient states see does have dry heaves on and off but denies abdominal pain or vomiting, Preop evaluation patient had a cardiac echo essentially normal with ejection fraction of 60-65% grade 1 diastolic discharge, EKG did not show any acute change, there are no contraindication for surgical intervention. 08/16 Patient stats she is doing deneis any nausea, vomiting or abdominal pain, able tolerate Actigall and will continue, patient has hx of left femur and tibia fracture, prior to coming to the hospital she was able to bear wt on her left and do her ADL with minimal assistance, patient stats since in the hospital she is not able bear wt on the left foot and need help with her ADL eventhought she is working with PT, patient benefit from acute rehab before going back to her NH, will discuss with vision care associate. (3) Hypothyroidism: Onset Date: Unknown Code(s): E03.9 - Hypothyroidism, unspecified Status: Chronic Assessment and Plan: Check thyroid level. (4) Hyperlipidemia: Onset Date: Unknown Code(s): E78.5 - Hyperlipidemia, unspecified Status: Chronic Assessment and Plan: I am holding
--- NOTE | 2020-08-16 11:26 | WPDGIPROGNO ---
Progress Note: A&P Assessment and Plan (1) Common bile duct dilatation: Code(s): K83.8 - Other specified diseases of biliary tract Status: Acute Assessment and Plan: ercp with cholangioscopy showed biliary sludge and thick bile but no definitive stones, stricture or mass, performed sphincterotomy she thinks that procedure helped and overall better she will follow up with surgery- medical therapy for now with actigall and if symptomatic again then consider cholecystectomy she can go home by GI standpoint (2) Biliary sludge: Onset Date: ~08/2020 Code(s): K83.8 - Other specified diseases of biliary tract Status: Acute Assessment and Plan: evaluated by surgery low fat diet and actbrian will see surgery as outpatient (3) Dysfunctional gallbladder: Code(s): K82.8 - Other specified diseases of gallbladder Status: Acute (4) Urinary tract infection: Onset Date: ~08/2020 Code(s): N39.0 - Urinary tract infection, site not specified Status: Acute Assessment and Plan: on abx (5) Leukocytosis: Onset Date: Unknown Code(s): D72.829 - Elevated white blood cell count, unspecified Status: Acute Assessment and Plan: trending down (6) Nausea: Code(s): R11.0 - Nausea Status: Acute Assessment and Plan: significantly improved Subjective Date/time seen: 08/16/20 11:26 Interval history: overall feeling better, tolerating diet, only minimal morning nausea- denies abdominal pain and able to eat she would like to hospitalist about continuing physical therapy for her leg condition Review of Systems Review of Systems: All systems reviewed & are unremarkable except as noted in HPI and below Exam Const: General: comfortable and no acute distress HENMT: General nose exam: Normal nares present Eyes: General: appearance normal, both eyes and all related structures Neck: Neck: supple Resp: Effort & Inspection: normal respiratory effort Cardio: Rate: regular rate GI: Inspection: non-distended GI Palp: Yes Soft to palpation, No Tenderness to palpation present (GI) and No Guarding due to palpation present (GI) Auscultation: normal bowel sounds Skin: General skin exam: normal color Neuro: Speech: normal speech Extrem: General: normal to inspection Psych: Affect: normal affect Objective Data Vital Signs Vital Signs: Vital Signs - 24 hr 08/15/20 14:00 08/15/20 21:49 08/16/20 06:00 Temperature 97.9 F 97.7 F 98.3 F Pulse Rate 82 84 77 Respiratory Rate 18 18 18 Blood Pressure 122/62 134/60 121/58 L Pulse Oximetry 96 94 92 Intake/Output Intake/Output: Intake & Output 08/13/20 08/14/20 08/15/20 08/16/20 23:59 23:59 23:59 23:59 Intake Total 1420 2450 2195 970 Output Total 1850 1200 2400 1600 Balance -430 2945 -112 -703 Meds/Results Medications: Active Medications Generic Name Dose Route Start Last Admin Trade Name Freq PRN Reason Stop Dose Admin Dextrose 12.5 gm 08/11/20 18:11 Dextrose 50% 25 Gm/50 Ml Syringe IV PUSH PRN PRN Hypoglycemia Protocol Famotidine 20 mg 08/11/20 21:00 08/16/20 08:12 Famotidine 20 Mg/2 Ml Vial IV PUSH 20 mg Q12HR SANDRA Administration Fluticasone Propionate 1 spray 08/12/20 09:00 08/16/20 08:12 Fluticasone Propionate 0.05% Na Spr 16 Gm Btl (*Bkc) NASAL 1 spray DAILY SANDRA Administration Glucagon 1 mg 08/11/20 18:11 Glucagon For Inj 1 Mg Vial IM PRN PRN Hypoglycemia Protocol Ceftriaxone Sodium/Dextrose 1 gm in 50 mls @ 100 mls/hr 08/12/20 09:00 08/16/20 09:32 Rocephin 1 Gm/D5w 50 Ml IVPB Infused Q24H SANDRA Infusion Levothyroxine Sodium 200 mcg 08/12/20 06:30 08/16/20 06:12 Levothyroxine Sodium 100 Mcg Tablet PO 200 mcg DAILY@0630 SANDRA Administration Ondansetron HCl 4 mg 08/11/20 18:11 08/12/20 04:24 Ondansetron Inj 4 Mg/2 Ml Vial IV PUSH 4 mg Q4H PRN Administration
[2020-08-16] MEDS: traMADol HCL (*CRX) 50 MG TABLET PO (13:59)
[2020-08-16 14:00] VITALS: BP 129/70; PULSE 100; RESP 18; TEMP 36.3; O2SAT 97
--- NOTE | 2020-08-16 14:57 | PM.PNGS ---
Progress Note: A&P Assessment and Plan (1) Biliary sludge: Onset Date: ~08/2020 Code(s): K83.8 - Other specified diseases of biliary tract Status: Acute Assessment and Plan: Noted on MRCP and at ERCP. Patient has started Actigall with no ill effects. Liver function tests about the same yesterday although bilirubin is normal. (2) Urinary tract infection: Onset Date: ~08/2020 Code(s): N39.0 - Urinary tract infection, site not specified Status: Acute Assessment and Plan: Cultures pending. Patient on antibiotics. Apparently needs a Zhu however intermittent catheterization may be a alternative if it is felt that catheter contributed to the infection. Urine culture returned as contaminated so on sure if she has urinary tract related infection. (3) Leukocytosis: Onset Date: Unknown Code(s): D72.829 - Elevated white blood cell count, unspecified Status: Acute Assessment and Plan: Improved today while on antibiotics. Unknown etiology. Additional Plan 1. For now will plan to treat with Actigall. 2. Appreciate medical workup for cardiac clearance. If patient and POA agree to accept the increased risk of her age and comorbidities with obesity and hypertension we could plan an interval cholecystectomy in a couple weeks if they wish. Patient can have [facility] call us at the office if she wishes to proceed to surgery sometime in the near future. (I will try to discuss preference is with Dr. Nation regarding the known biliary sludge which required the ERCP.) 3. Okay with me to go back to her care center whenever medically stable. 4. Will recheck up hepatic panel again tomorrow morning since she will be here. 5.. Has been constipated so will give her duplex suppository today and start on MiraLax. Subjective Subjective Date/Time Seen: 08/16/20 14:57 Patient reports: no new complaints Interval history: Patient is sitting up in chair when I walked in the room. She has not had a bowel movement yet and did not get a suppository yesterday. Patient tolerating a low-fat diet today thought the soup here for lunch was very good. Only has occasional Prieb flares of nausea now. Review of Systems Constitutional: Constitutional: Reports no additional constitutional complaints ENT: Reports other (Mucous Membranes moist.) Cardiovascular: Cardiovascular: Denies dyspnea Respiratory: Respiratory: Denies pain on inspiration and Denies dyspnea Musculoskeletal: Musculoskeletal: Reports other (No calf swelling or edema) Integumentary/Breasts: Skin/Breast: Reports system reviewed and no additional complaints, except as docu Exam Const: General: cooperative, no acute distress, well developed, alert and awake Nutritional Appearance: well nourished Orientation/consciousness: patient oriented x3 Limitations: no limitations HENMT: Head: normal to inspection, normocephalic and atraumatic Ears: hearing grossly normal bilaterally General nose exam: Normal external nose present Face and sinus: normal facial exam Mouth: Yes Normal oral and palatal mucosa present, Yes tongue normal and Yes moist mucous membranes Eyes: General: appearance normal, both eyes and all related structures Pupils: Equal, round and reactive pupils present EOM: EOMs intact bilaterally Neck: Neck: normal visual inspection, no lymphadenopathy, trachea midline and supple Lymphatic: no lymphadenopathy noted Chest: Chest palpation & inspection: normal inspection of the chest Other: breasts not examined. Resp: Effort & Inspection: normal respiratory effort and able to speak in complete sentences Auscultation: clear to auscultation bilaterally and rhonchi ( left greater than right.) Cardio: Jugular venous distension: no JVD Rate: regular rate Rhythm: regular rhythm Heart sounds: S1 normal heart sound present and S2 normal heart sound present GI: Inspection: normal to inspection, Pannus present, obesity
[2020-08-16] MEDS: BISACODYL 10 MG SUPPOSITORY RECTAL (16:16)
[2020-08-16] MEDS: FAMOTIDINE 20 MG TABLET PO (20:49)
[2020-08-16 21:53] VITALS: BP 134/53; PULSE 82; RESP 20; TEMP 36.2; O2SAT 95
[2020-08-17 06:00] VITALS: BP 130/55; PULSE 77; RESP 20; TEMP 36.6; O2SAT 96
[2020-08-17] MEDS: LEVOTHYROXINE SODIUM 100 MCG TABLET 200 MCG PO (06:15)
[2020-08-17 06:23] LABS: Hematocrit 36.8 % (37.0-47.0); Mean Corpuscular HGB Conc 32.6 g/dl (32-36); Mean Corpuscular Hemoglobin 31.6 pg (26-34); Mean Corpuscular Volume 96.8 fl (80-100); Mean Platelet Volume 10.1 fl (7.4-10.4); Platelet Count Result 218 k/mm3 (150-375); Red Cell Distribution Width 13.2 % (11.5-14.5); White Blood Count 7.5 K/mm3 (4.5-10.0)
[2020-08-17 06:36] LABS: Alanine Aminotransferase 37 U/L (4-35); Albumin Level 2.8 g/dL (3.5-5.1); Alkaline Phosphatase 333 U/L (38-126); Anion Gap 3 mmol/L (8-16); Aspartate Amino Transferase 51 U/L (14-36); Bilirubin,Total 0.4 mg/dL (0.2-1.3); Blood Urea Nitrogen 11 mg/dL (7-17); Calcium 8.8 mg/dL (8.4-10.2); Carbon Dioxide 31 mmol/L (22-30); Chloride 100 mmol/L (98-107); Estimated CRCL calculation 57 ml/min; Estimated Glomerular Filt Rate > 60; Glucose 91 mg/dL (65-105); Magnesium 1.5 mg/dL (1.6-2.3); Potassium 3.7 mmol/L (3.4-5.0); Sodium 134 mmol/L (137-145)
[2020-08-17] MEDS: ursodioL 300 MG CAPSULE PO (07:54)
[2020-08-17] MEDS: POTASSIUM CHLORIDE 20 MEQ TABLET 40 MEQ PO (07:54)
[2020-08-17] MEDS: FAMOTIDINE 20 MG TABLET PO (07:54)
[2020-08-17] MEDS: MAGNESIUM OXIDE 400 MG TABLET PO (07:54)
[2020-08-17] MEDS: FLUTICASONE PROPIONATE 0.05% NA SPR 16 GM BTL (*BKC) 1 SPRAY NASAL (07:55)
[2020-08-17] MEDS: MAGNESIUM SULF 2 GM/WATER 50ML 2 GM/50 ML BAG IVPB (08:32)
--- NOTE | 2020-08-17 09:33 | PM.PNGS ---
Progress Note: A&P Assessment and Plan (1) Biliary sludge: Onset Date: ~08/2020 Code(s): K83.8 - Other specified diseases of biliary tract Status: Acute Assessment and Plan: Noted on MRCP and ERCP. Continue Actigall on discharge. LFTs essentially the same this morning with a normal bilirubin. Tolerating a low fat diet, would recommend continuing this on discharge. Okay from a surgical standpoint to discharge the patient when okay with other services. Recommend repeating the CMP in 1-2 weeks. If patient wishes to proceed with an interval cholecystectomy as an outpatient, then they can call the office to schedule this in the next few weeks. (2) Urinary tract infection: Onset Date: ~08/2020 Code(s): N39.0 - Urinary tract infection, site not specified Status: Acute Assessment and Plan: Urine culture suggests contamination. Management per Hospitalist. (3) Leukocytosis: Onset Date: Unknown Code(s): D72.829 - Elevated white blood cell count, unspecified Status: Acute Assessment and Plan: Resolved, WBC normal today. Additional Plan I have discussed the plan of care with Dr. Navas. Subjective Subjective Date/Time Seen: 08/17/20 09:00 Patient reports: no new complaints, tolerating a regular diet (low fat), bowel movement, nausea (in the morning, subsides throughout the day) and afebrile Interval history: Patient doing well today and tolerating a low fat diet. No other complaints at this time. Review of Systems Review of Systems: All systems reviewed & are unremarkable except as noted in HPI and below Exam Const: General: no acute distress, alert and awake Orientation/consciousness: patient oriented x3 Resp: Auscultation: clear to auscultation bilaterally Cardio: Rate: regular rate Rhythm: regular rhythm GI: Inspection: non-distended and obesity GI Palp: Yes Soft to palpation, No Tenderness to palpation present (GI), No Guarding due to palpation present (GI) and No Rebound tenderness present Auscultation: normal bowel sounds Skin: General skin exam: normal color Neuro: General: moves all extremities and no focal motor deficits Speech: normal speech Extrem: General: no clubbing, cyanosis or edema Psych: Mental Status: mental status grossly normal Insight: Good insight present (Psych) Objective Data Vital Signs Vital Signs: Vital Signs - 24 hr 08/16/20 14:00 05/16/21 21:53 08/17/20 06:00 Temperature 97.3 F L 97.1 F L 97.8 F Pulse Rate 100 82 77 Respiratory Rate 18 20 20 Blood Pressure 129/70 134/53 L 130/55 L Pulse Oximetry 97 95 96 Intake/Output Intake/Output: Intake & Output 08/14/20 08/15/20 08/16/20 08/17/20 23:59 23:59 23:59 23:59 Intake Total 2450 2195 2000 450 Output Total 1200 2400 2050 900 Balance 1250 -205 -50 -450 Meds/Results Medications: Active Medications Generic Name Dose Route Start Last Admin Trade Name Freq PRN Reason Stop Dose Admin Dextrose 12.5 gm 08/11/20 18:11 Dextrose 50% 25 Gm/50 Ml Syringe IV PUSH PRN PRN Hypoglycemia Protocol Famotidine 20 mg 08/16/20 21:00 08/17/20 07:54 Famotidine 20 Mg Tablet PO 20 mg Q12HR SANDRA Administration Fluticasone Propionate 1 spray 08/12/20 09:00 08/17/20 07:55 Fluticasone Propionate 0.05% Na Spr 16 Gm Btl (*Bkc) NASAL 1 spray DAILY SANDRA Administration Glucagon 1 mg 08/11/20 18:11 Glucagon For Inj 1 Mg Vial IM PRN PRN Hypoglycemia Protocol Ceftriaxone Sodium/Dextrose 1 gm in 50 mls @ 100 mls/hr 08/12/20 09:00 08/17/20 08:24 Rocephin 1 Gm/D5w 50 Ml IVPB Infused Q24H SANDRA Infusion Levothyroxine Sodium 200 mcg 08/12/20 06:30 08/17/20 06:15 Levothyroxine Sodium 100 Mcg Tablet PO 200 mcg DAILY@0630 SANDRA Administration Magnesium Oxide 400 mg 08/17/20 09:00 08/17/20 07:54 Magnesium Oxide 400 Mg Tablet PO 400 mg QAM SANDRA Administration Ondansetron HCl 4 mg 05
--- NOTE | 2020-08-17 12:03 | PM.DS ---
DS: Admitting Diagnosis Admitting Diagnosis Admitting Diagnosis: Chief Complaint: Dry heaves DS: Discharge Diagnosis Discharge Diagnosis (1) Urinary tract infection: Onset Date: ~08/2020 Code(s): N39.0 - Urinary tract infection, site not specified Status: Acute Assessment and Plan: Continue with Rocephin. Monitor urine cultures. Patient is having dry heaves which could either be from the gallbladder or from urinary tract infection. She does not appear to be septic. Her white count 16.5. Blood pressure is 122/68. Heart rate 78. (2) Dysfunctional gallbladder: Code(s): K82.8 - Other specified diseases of gallbladder Status: Acute Assessment and Plan: The patient has intrahepatic and extrahepatic biliary duct dilatation. Patient is scheduled for an Mrcp tomorrow. And GI has been consulted. 08/16/20 11:26 08/12 Patient 84-year-old female presented emergency department with a complaint of epigastric pain and dry heaving patient had a CT scan of abdomen suggestive cholecystitis patient will be seen by GI and further recommendation to follow, GI did an suspect is infection and does not recommend antibiotic, to further evaluate MRCP it showed: 1. Moderate intrahepatic and extrahepatic biliary duct dilatation. 13 x 5 x 9 mm dependent nonobstructing mass in the common bile duct, likely sludge. Consider ERCP. 2. Dependent material in the gallbladder, likely sludge. 3. Gallbladder distention again seen. Correlate with physical exam to exclude acute cholecystitis. Consider HIDA scan. Patient be seen by GI and further recommendation to follow, patient states feeling much better compared to when she arrived denies any nausea or vomiting fever or chills. 08/13 today patient was seen by GI and had a ERCP showed sludge and which was irrigated and cleaned, there was no mass or stone found, patient states is still slightly nauseated after the procedure but denies any fever or chills denies abdominal pain, will continue to monitor patient reassess in the morning and further recommendation to follow. 08/14 patient 85-year-old female status post ERCP on 08/13 which was irrigated and cleared there was no mass or stone found, today patient states feeling much better nausea and dry heaves have resolved, feels hungry and wants to eat, patient was seen surgery service suggesting patient may benefit from cholecystectomy down the road initially we can treat medically and there is no improvement may consider surgery, will do the EKG and cardiac echo for preop evaluation. 08/15 patient 85-year-old female status post ERCP on 08/13 which was irrigated and cleared there was no mass or stone found. Patient is seen by surgery service suspect cholecystitis plan is to treat the patient with Actigall for 2-3 weeks if there is improvement in the symptoms patient may not require surgical intervention, today patient states see does have dry heaves on and off but denies abdominal pain or vomiting, Preop evaluation patient had a cardiac echo essentially normal with ejection fraction of 60-65% grade 1 diastolic discharge, EKG did not show any acute change, there are no contraindication for surgical intervention. 08/16 Patient stats she is doing deneis any nausea, vomiting or abdominal pain, able tolerate Actigall and will continue, patient has hx of left femur and tibia fracture, prior to coming to the hospital she was able to bear wt on her left and do her ADL with minimal assistance, patient stats since in the hospital she is not able bear wt on the left foot and need help with her ADL eventhought she is working with PT, patient benefit from acute rehab before going back to her NH, will discuss with healthcare customer service. (3) Hypothyroidism: Onset Date: Unknown Code(s): E03.9 - Hypothyroidism, unspecified Status: Chronic Assessment and Plan: Check thyroid level. (4) Hyperlipidemia: Onset Date: Unknown Code(s):
[2020-08-17 14:00] VITALS: BP 126/52; PULSE 94; RESP 16; TEMP 36.7; O2SAT 97
== END 2020-08-17 16:05 | DRG 445 ==
LOC: ANHED 18:05 → ANH3MEDSUR 23:13
PROVIDERS: Emergency Medicine Emergency Medical Services; Internal Medicine Gastroenterology; Nurse Practitioner; Surgery; Admitting Provider Family Medicine; Emergency Provider Emergency Medicine; PCP Family Medicine; Visit Provider Family Medicine
PROC: 0F7C8ZZ Dilation of Ampulla of Vater, Via Natural or Artificial Opening Endoscopic (ICD-10-PCS; CPT 43260; principal; 2020-08-13 12:30)
DX: K83.8 Other specified diseases of biliary tract (principal); N39.0 Urinary tract infection, site not specified; E87.1 Hypo-osmolality and hyponatremia; K83.1 Obstruction of bile duct; K82.8 Other specified diseases of gallbladder; K31.7 Polyp of stomach and duodenum; K44.9 Diaphragmatic hernia without obstruction or gangrene; D72.829 Elevated white blood cell count, unspecified; K59.00 Constipation, unspecified; E87.6 Hypokalemia; E03.9 Hypothyroidism, unspecified; E78.5 Hyperlipidemia, unspecified; I10 Essential (primary) hypertension; N28.9 Disorder of kidney and ureter, unspecified; Z96.612 Presence of left artificial shoulder joint; Z96.653 Presence of artificial knee joint, bilateral; Z85.3 Personal history of malignant neoplasm of breast; Z98.41 Cataract extraction status, right eye; Z98.42 Cataract extraction status, left eye; Z97.8 Presence of other specified devices
CPT/HCPCS: 36415; 74176; 74181; 74329; 76376; 80048; 80053; 80076; 81001; 83690; 83735; 84100; 84439; 84443; 85025; 85027; 87040; 87086; 87088; 88305; 93005; 93306; 96361; 96365; 96367; 96375; 97110; 97161; 97165; 97530; 97535; 99285; A9270; C1726; C1769; J0131; J0330; J0696; J2405; J2704; J3475; J3480; J7030; J7120

== ENCOUNTER 2020-09-04 06:48 | Inpatient (IN) | payer OTHER, SELFPAY ==
[2020-09-04] VITALS (43 sets, daily range): BP systolic 102–127; BP diastolic 42–69; PULSE 58–95; RESP 12–21; TEMP 36.5–36.8; O2SAT 91–100; BMI 33.3
--- NOTE | ~2020-09-04 | US_ITS ---
EXAMINATION: US abdomen limited DATE: 09/04/2020 07:55 INDICATION: Right upper quadrant tenderness and nausea. TECHNIQUE: Multiple grayscale and Doppler ultrasound images of the abdomen were obtained. COMPARISON: MRCP dated 08/12/[address] abdomen and pelvis dated 08/11/2020 FINDINGS: Region of the pancreas is obscured by shadowing bowel gas. Liver has normal echogenicity and contour, with a smooth surface. No liver lesion identified. No intrahepatic biliary duct dilation suspected. Portal venous flow was seen in the hepatopetal, normal direction and has normal Doppler waveform. The gallbladder is normal in appearance. There is no cholelithiasis. Sonographic Dorado sign was report ed as negative by the food production supervisor. The common bile duct measures up to 8 mm diameter which is at the limits of normal for age, slightly decreased since the prior study. Visualized portion of the right k idney demonstrates normal echogenicity and no hydronephrosis. Visualized portion of the inferior vena cava is normal. IMPRESSION: 1. Upper limits of normal for age common bile duct diameter of 8 mm which is decreased since the prio r study. Otherwise unremarkable right upper quadrant ultrasound. Reviewed, dictated and finalized at location A. IMPRESSION: 1. Upper limits of normal for age common bile duct diameter of 8 mm which is de creased since the prior study. Otherwise unremarkable right upper quadrant ultr asound.
[2020-09-04 07:10] LABS: Basophils Absolute Auto 0.1 K/mm3 (0.0-0.1); Eosinophils Absolute Auto 0.3 K/mm3 (0-0.3); Eosinophils Percent Auto 2.6 % (0-4.4); Hematocrit 45.8 % (37.0-47.0); Hemoglobin 15.3 g/dL (12.0-15.0); Immature Granulocyte Absolute 0.53 K/mm3 (0.00-0.031); Immature Granulocyte Percent A 4.2 % (0-0.5); Lymphocytes Absolute Auto 1.61 K/mm3 (0.9-3.2); Lymphocytes Percent Auto 12.8 % (18.3-44.2); Mean Corpuscular HGB Conc 33.4 g/dl (32-36); Mean Corpuscular Hemoglobin 31.4 pg (26-34); Mean Platelet Volume 9.8 fl (7.4-10.4); Monocytes Absolute Auto 1.2 K/mm3 (0.1-0.6); Monocytes Percent Auto 9.4 % (2.6-8.5); Neutrophils Absolute Auto 8.8 K/mm3 (1.3-6.7); Platelet Count Result 337 k/mm3 (150-375); Red Blood Count 4.87 M/mm3 (4.2-5.4); Red Cell Distribution Width 13.3 % (11.5-14.5); White Blood Count 12.6 K/mm3 (4.5-10.0)
--- NOTE | 2020-09-04 07:15 | ED.NAVMDI ---
HPI - Nausea/Vomiting/Diarrhea General Chief complaint: Nausea/Vomiting/Diarrhea Stated complaint: n/v/d/ Time Seen by Provider: 09/04/20 06:59 Source: patient, RN notes reviewed and old records reviewed Mode of arrival: EMS Limitations: no limitations History of Present Illness HPI Narrative: This is an 85 year old female who presents for evaluation of nausea. She states she was admitted to [facility] 3 weeks ago for similar symptoms. She states she felt better after discharge but for the past 1.5 weeks she is having nausea and dry heaves again. She has not eaten in 3 days because of poor appetite and nausea. She states she had a sprite this morning. She continues to have nausea, and she reports she was given 2 different antiemetics yesterday without relief. She also reports 3 episodes of nonbloody diarrhea yesterday. She has taken Imodium so she denies diarrhea today. She denies fever, chills, chest pain, sob. She has a nonproductive cough before she has dry heaves. She is scheduled to have a cholecystectomy on 09/09/20 . Related Data Home Medications Medication Instructions Recorded Confirmed acetaminophen 500 mg PO Q4H PRN 08/11/20 09/04/20 aspirin 81 mg PO DAILY 08/11/20 09/04/20 atorvastatin 20 mg PO DAILY 08/11/20 09/04/20 celecoxib 200 mg PO DAILY 08/11/20 09/04/20 fluticasone propionate 2 spray INTRANASAL DAILY PRN 08/11/20 09/04/20 furosemide 40 mg PO DAILY 08/11/20 09/04/20 levothyroxine 200 mcg PO DAILY 08/11/20 09/04/20 loratadine 10 mg PO DAILY PRN 08/11/20 09/04/20 meclizine 25 mg PO TID PRN 08/11/20 09/04/20 metolazone 5 mg PO EVERY OTHER DAY 08/11/20 09/04/20 omeprazole 20 mg PO DAILY 08/11/20 09/04/20 ondansetron HCl 4 mg PO Q4-5H PRN 08/11/20 09/04/20 polyethylene glycol 3350 [Miralax] 17 g PO PRN PRN 08/11/20 09/04/20 potassium chloride 20 meq PO BID 08/11/20 09/04/20 spironolactone 25 mg PO DAILY 08/11/20 09/04/20 tramadol 50 mg PO Q4H PRN 08/11/20 09/04/20 calcium carbonate-vitamin D3 1 tablet PO TID 09/03/20 09/04/20 [Calcium 600 + D(3)] cholecalciferol (vitamin D3) 125 mcg PO DAILY 09/03/20 09/04/20 glucagon [Glucagon Emergency Kit] 1 mg IM PRN PRN 09/03/20 09/04/20 metoprolol succinate 50 mg PO DAILY 09/03/20 09/04/20 loperamide See Rx Instructions .ROUTE 09/04/20 09/04/20 .COMPLEX PRN Allergies Allergy/AdvReac Type Severity Reaction Status Date / Time adhesive tape Allergy Mild Rash Verified 09/04/20 13:05 morphine Allergy Mild Rash Verified 09/04/20 13:05 Review of Systems Review of Systems: All systems reviewed & are unremarkable except as noted in HPI and below PMFSH Past Medical History Medical History Biliary sludge (~08/2020) Common bile duct dilatation History of breast cancer Lumpectomy Hyperlipidemia (Unknown) Hypertension (Unknown) Hypothyroidism (Unknown) Leukocytosis (Unknown) Nausea Surgical History Surgical History H/O bilateral cataract extraction H/O lumpectomy H/O shoulder replacement On the left History of orthopedic surgery History of total knee replacement Bilaterally Family History Family History Unknown No problems noted. Social History Social History Social History: The patient is and never had any children. 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 She is a lifelong nonsmoker. Her friend Melissa mendoza is her friend that is the durable power burr mill operator for healthcare. The patient desires to be a full code but does not want to live in a vegetative state on a ventilator. She does not use alcohol or illicit drugs. Smoking status: Never smoker Second hand tobacco smoke exposure: No Alcohol intake: never Substance use: never Additional living arrangements comments: [facility] Gender identity (if
[2020-09-04 07:38] LABS: Add Urine Microscopic? YES; Appearance Urine Cloudy (Clear); Bacteria Urine Trace /hpf; Bilirubin Urine Negative (Negative); Blood Urine Negative (Negative); Color Urine Yellow (Yellow); Glucose Urine UA Negative (Negative); Ketones Urine Negative (Negative); Leukocyte Esterase Ur 3+ LEU/UL (Negative); Nitrate Urine Negative (Negative); Protein Urine 1+ mg/dL (Negative); RBC Urine 0-2 /hpf (0-2); Specific Grav Ur 1.013 (1.001-1.035); Squamous Epithelial Cell Urine Rare /hpf (Few); Urobilinogen Urine Negative mg/dL (<2.0); WBC Urine >75 /hpf
[2020-09-04] MEDS: SODIUM CHLORIDE 0.9% IV 1,000 ML 999 ML IV CONT (07:39)
[2020-09-04] MEDS: ONDANSETRON INJ 4 MG/2 ML VIAL IV PUSH (07:39)
[2020-09-04] MEDS: METOCLOPRAMIDE HCL INJ 10 MG/2 ML VIAL IV PUSH (08:54)
[2020-09-04 09:46] LABS: Alanine Aminotransferase 12 U/L (4-35); Albumin Level 3.3 g/dL (3.5-5.1); Alkaline Phosphatase 175 U/L (38-126); Anion Gap 11 mmol/L (8-16); Aspartate Amino Transferase 31 U/L (14-36); Bilirubin,Total 0.6 mg/dL (0.2-1.3); Blood Urea Nitrogen 27 mg/dL (7-17); Calcium 6.9 mg/dL (8.4-10.2); Carbon Dioxide 28 mmol/L (22-30); Chloride 94 mmol/L (98-107); Estimated CRCL calculation 35 ml/min; Estimated Glomerular Filt Rate 47; Glucose 107 mg/dL (65-105); Potassium 2.5 mmol/L (3.4-5.0); Sodium 133 mmol/L (137-145)
[2020-09-04 09:56] LABS: Lipase < 10 U/L (23-300)
[2020-09-04] MEDS: POTASSIUM CHLORIDE 20 MEQ TABLET 40 MEQ PO (10:00)
[2020-09-04] MEDS: LACTATED RINGERS 1,000 ML 150 ML IV CONT (10:07)
[2020-09-04] MEDS: CALCIUM GLUCONATE 1,000 MG/10 ML VIAL 1000 MG IV PUSH (10:19)
--- NOTE | 2020-09-04 11:27 | PM.CNGS ---
Assessment and Plan Assessment and plan (1) Nausea: Code(s): R11.0 - Nausea Status: Acute (2) Biliary sludge: Onset Date: ~08/2020 Code(s): K83.8 - Other specified diseases of biliary tract Status: Acute Assessment and Plan: As noted in HPI above. For this we are planning to proceed with a laparoscopic cholecystectomy on Monday09/07/2020. Hopefully over the weekend her potassium make corrected and she can be medically stabilized to be able to proceed to surgery. Hopefully will also rule out whether not she has the UTI and/or need see urology consultation as far as whether not we can stop using indwelling catheter and help her with her incontinence. Once patient tolerating a diet would recommend going ahead and going back on Actigall while here in the hospital until after surgery. (3) Hyperlipidemia: Onset Date: Unknown Code(s): E78.5 - Hyperlipidemia, unspecified Status: Chronic Assessment and Plan: As per medicine service (4) Hypertension: Onset Date: Unknown Code(s): I10 - Essential (primary) hypertension Status: Chronic Assessment and Plan: seems to be well controlled, as per medicine service (5) Acute hypokalemia: Onset Date: ~09/04/20 Code(s): E87.6 - Hypokalemia Status: Acute Assessment and Plan: receiving IV potassium and will have further replacement over the weekend. History of Present Illness Consult details Consult date: 09/04/20 Reason for consult: other ( Chronic nausea) Narrative: This patient is well known to our surgery service. She was recently in the hospital about 3 weeks ago and under went MRCP and subsequent ERCP with the finding of biliary sludge. Ultrasound today on original reading shows no stones however, on careful review with Dr. Chandler in Radiology reveals the possibility that there is still some sludge in the gallbladder and there was sludge in the gallbladder on her recent MRCP. Liver function tests are actually improved compared to previous admission. However, we were planning on proceeding toward laparoscopic cholecystectomy for this lady because of her issues with this. She was on Actigall but apparently recently this was stopped about 1 week ago at the [facility] for unknown reasons. This may in fact have been what was keeping her from having nausea for the 1st wo weeks she was back there. If she is tolerating liquids I would put her back on the Actigall over the weekend. I have discussed with her that I think we should proceed with the plan to proceed with laparoscopic cholecystectomy during this admission. We cannot proceed today as her potassium is quite low at 2.5. She did have a cardiac workup during her hospitalization last time and a echocardiogram showed good left ventricular function and an EKG was fairly unremarkable, so I believe we already have cardiac clearance from the internal medicine service/ hospitalist to go ahead and proceed. Therefore,I have tentatively scheduled her for a laparoscopic cholecystectomy at around 2:oo p.m. on Monday09/07/2020. Review of Systems Constitutional: Constitutional: Reports as per HPI and Denies headache(s) Eyes: Eyes: Denies loss of vision and Denies eye pain ENT: Reports Normal hearing present, Denies change in voice, Denies dizziness and Denies headache(s) Cardiovascular: Cardiovascular: Denies chest pain and Denies dyspnea Comments: History of hypertension and hyperlipidemia. Respiratory: Respiratory: Denies dyspnea and Denies wheezing Gastrointestinal: Gastrointestinal: Reports loose stools and Reports nausea ( On off for about 1 week.) Comments: Known history of biliary sludge on previous MRCP and ERCP. Patient has been to the nursing for about 3 weeks. She states during the 1st 2 weeks while she was taking Actigall she was early doing okay. Apparently somehow then the Actigall ran out and this was not
--- NOTE | 2020-09-04 12:55 | ADMGEN ---
This patient, Isabel Monzon, was admitted to [facility] Surg Room 322-01. Patient/family oriented to hospital policies and general routines including ID bracelet, bed and alarms, visiting hours, pain management, procedures, bathroom and other care routines, personal items, smoking policy, room service/diet, and visiting hours. Information on how to activate the Rapid Response Team has been discussed. Patient/Family are encouraged to report perceived risks to care and to ask questions if they do not understand what they are told or what they should do.
--- NOTE | 2020-09-04 13:26 | PM.IMHP ---
H&P: HPI History of Present Illness Date/Time: 09/04/20 13:26 this is a 85-year-old female patient who resides at [facility]. The patient was just discharged from here on 08/17/2020. The patient had a MRCP and ERCP and the patient was found have biliary sludge. The patient was placed on Actigall. The patient tells me that she was scheduled to have surgery on 09/09/2020 for a laparoscopic cholecystectomy. The patient was found to have a urinary tract infection at that time as well. Urine culture was read as growth of mixed nilsa were isolated probably contamination. The patient has a chronic indwelling Zhu catheter which she stated was placed due to her immobility and incontinence. She does have macerated skin to her buttocks. She stated that her Zhu catheter was changed yesterday and it has changed at the beginning of the month every month. The patient came in today because she has not eaten in 3 days due to poor appetite and nausea. She had 3 episodes of nonbloody diarrhea yesterday. She has taken Imodium and has not had any diarrhea today. She denies any recent antibiotics. She had been on Rocephin while she was in the hospital here 3 weeks ago. The patient is afebrile today but her blood pressure is low 105/62 pulse rate went up to 95 at 1 point. Her potassium was found to be 2.5 and she was supplemented. The patient has edema to her lower extremities and has been taking Lasix. The patient has been dry heaving and has some discomfort to right upper quadrant. General surgery has been consulted. The plan is For a laparoscopic cholecystectomy on Monday09/07/2020. Patient had been found to have a UTI today and was started on Rocephin. The patient is being admitted to inpatient services on the date of service of 09/04/2020. Chief Complaint: Nausea Review of Systems Review of Systems: All systems reviewed & are unremarkable except as noted in HPI and below Constitutional: Constitutional: Reports as per HPI and Reports no additional constitutional complaints Eyes: Eyes: Reports as per HPI and Reports no additional eye complaints ENT: Reports system reviewed and no additional complaints, except as documented and Reports Normal hearing present Cardiovascular: Cardiovascular: Reports no additional cardiovascular complaints Respiratory: Respiratory: Reports no additional respiratory complaints and Reports no additional respiratory complaints Gastrointestinal: Gastrointestinal: Reports as per HPI and Reports no additional gastrointestinal complaints Musculoskeletal: Musculoskeletal: Reports no additional musculoskeletal complaints Integumentary/Breasts: Skin/Breast: Reports system reviewed and no additional complaints, except as docu and Reports as per HPI Neurologic: Reports system reviewed and no additional complaints, except as documented, Reports as per HPI and Reports Normal hearing present Psychiatric: Psychiatric: Reports no additional psychiatric complaints and Reports as per HPI Endocrine: Endocrine: Reports no additional endocrine complaints Hematologic/Lymphatic: Hematologic/Lymphatic: Reports no additional hematologic/lymphatic complaints Allergic/Immunologic: Allergic/Immunologic: Reports no additional allergic/immunologic complaints [facility] Past Medical History Medical History Biliary sludge (~08/2020) Common bile duct dilatation History of breast cancer Lumpectomy Hyperlipidemia (Unknown) Hypertension (Unknown) Hypothyroidism (Unknown) Leukocytosis (Unknown) Nausea Surgical History Surgical History H/O bilateral cataract extraction H/O lumpectomy H/O shoulder replacement On the left History of orthopedic surgery History of total knee replacement Bilaterally Family History Family History Unknown No problems noted. Social H
[2020-09-04] MEDS: LACTATED RINGERS 1,000 ML 75 ML IV CONT (16:56)
[2020-09-04] MEDS: POTASSIUM CHLORIDE 20 MEQ TABLET.ER PO (16:56)
[2020-09-04] MEDS: ursodioL 300 MG CAPSULE PO (21:38)
[2020-09-04 21:57] LABS: Anion Gap 8 mmol/L (8-16); Blood Urea Nitrogen 22 mg/dL (7-17); Calcium 6.9 mg/dL (8.4-10.2); Carbon Dioxide 26 mmol/L (22-30); Chloride 97 mmol/L (98-107); Estimated CRCL calculation 45 ml/min; Estimated Glomerular Filt Rate 60; Glucose 111 mg/dL (65-105); Potassium 3.4 mmol/L (3.4-5.0); Sodium 131 mmol/L (137-145)
[2020-09-05] VITALS (9 sets, daily range): BP systolic 118–139; BP diastolic 44–56; PULSE 62–77; RESP 18; TEMP 36.2–37.6; O2SAT 94–97
[2020-09-05] MEDS: LACTATED RINGERS 1,000 ML 75 ML IV CONT ×2 (06:38→17:40)
[2020-09-05] MEDS: LEVOTHYROXINE SODIUM 100 MCG TABLET 200 MCG PO (06:40)
[2020-09-05] MEDS: ursodioL 300 MG CAPSULE PO ×2 (08:05→21:22)
[2020-09-05] MEDS: POTASSIUM CHLORIDE 20 MEQ TABLET.ER PO ×2 (08:05→17:40)
[2020-09-05 08:48] LABS: Basophils Absolute Auto 0.1 K/mm3 (0.0-0.1); Basophils Percent Auto 1.1 % (0.2-1.2); Eosinophils Absolute Auto 0.3 K/mm3 (0-0.3); Eosinophils Percent Auto 3.1 % (0-4.4); Hematocrit 39.1 % (37.0-47.0); Hemoglobin 12.7 g/dL (12.0-15.0); Immature Granulocyte Absolute 0.47 K/mm3 (0.00-0.031); Immature Granulocyte Percent A 4.9 % (0-0.5); Lymphocytes Percent Auto 11.4 % (18.3-44.2); Mean Corpuscular HGB Conc 32.5 g/dl (32-36); Mean Corpuscular Hemoglobin 31.3 pg (26-34); Mean Corpuscular Volume 96.3 fl (80-100); Mean Platelet Volume 9.7 fl (7.4-10.4); Neutrophils Absolute Auto 6.7 K/mm3 (1.3-6.7); Neutrophils Percent Auto 69.5 % (45.5-73.1); Platelet Count Result 269 k/mm3 (150-375); Red Blood Count 4.06 M/mm3 (4.2-5.4); Red Cell Distribution Width 13.2 % (11.5-14.5); White Blood Count 9.6 K/mm3 (4.5-10.0)
[2020-09-05 08:59] LABS: Alanine Aminotransferase 11 U/L (4-35); Alkaline Phosphatase 140 U/L (38-126); Anion Gap 10 mmol/L (8-16); Aspartate Amino Transferase 29 U/L (14-36); Bilirubin,Total 0.3 mg/dL (0.2-1.3); Blood Urea Nitrogen 16 mg/dL (7-17); Calcium 7.2 mg/dL (8.4-10.2); Carbon Dioxide 29 mmol/L (22-30); Chloride 97 mmol/L (98-107); Estimated CRCL calculation 45 ml/min; Estimated Glomerular Filt Rate 60; Glucose 115 mg/dL (65-105); Magnesium 0.7 mg/dL (1.6-2.3); Potassium 3.1 mmol/L (3.4-5.0); Sodium 136 mmol/L (137-145)
[2020-09-05 09:07] LABS: Prealbumin 10.9 mg/dL (17.6-36.0)
--- NOTE | 2020-09-05 14:36 | PM.IMPN ---
Progress Note: A&P Assessment and Plan (1) Dysfunctional gallbladder: Code(s): K82.8 - Other specified diseases of gallbladder Status: Acute Assessment and Plan: Patient's potassium is down to 3.1 (2) Urinary tract infection: Onset Date: ~08/2020 Qualifiers: Encounter type: sequela Indwelling urinary catheter type: indwelling urethral catheter Urinary tract infection type: catheter-associated UTI Qualified Code(s): T83.511S - Infection and inflammatory reaction due to indwelling urethral catheter, sequela; N39.0 - Urinary tract infection, site not specified Code(s): N39.0 - Urinary tract infection, site not specified Status: Acute Assessment and Plan: The patient was here 3 weeks ago and was diagnosed with a urinary tract infection however her urine and blood cultures were negative. She does have a chronic indwelling Zhu catheter. This catheter was changed yesterday according to the patient the patient stated that she just started having this catheter earlier this year due to immobility and incontinence. (3) Hypertension: Onset Date: Unknown Code(s): I10 - Essential (primary) hypertension Status: Chronic Assessment and Plan: continue to watch BPs (4) Hyperlipidemia: Onset Date: Unknown Code(s): E78.5 - Hyperlipidemia, unspecified Status: Chronic Assessment and Plan: I am holding her atorvastatin for now. (5) Acute hypokalemia: Onset Date: ~09/04/20 Code(s): E87.6 - Hypokalemia Status: Acute Assessment and Plan: Replace when necessary. (6) Acute renal insufficiency: Code(s): N28.9 - Disorder of kidney and ureter, unspecified Status: Acute Assessment and Plan: Hold diuretics and any nephrotoxic medications. Subjective Date/time seen: 09/05/20 14:36 Interval history: 85-year-old female patient who resides at [facility]. The patient was just discharged from here on 08/17/2020. The patient had a MRCP and ERCP and the patient was found have biliary sludge. The patient was placed on Actigall. The patient tells me that she was scheduled to have surgery on 09/09/2020 for a laparoscopic cholecystectomy. Surgery Preponed to Monday. Pt can advance to soft diet Review of Systems Review of Systems: All systems reviewed & are unremarkable except as noted in HPI and below Exam Const: General: cooperative, healthy appearing, comfortable, no acute distress, well developed, alert, awake and Physically active Nutritional Appearance: average body habitus and overweight Orientation/consciousness: oriented to person, oriented to place, oriented to time and patient oriented x3 Limitations: no limitations Chest: Chest palpation & inspection: normal inspection of the chest Resp: Effort & Inspection: normal respiratory effort Auscultation: clear to auscultation bilaterally Percussion: percussion normal Cardio: Palpation: normal PMI Rate: regular rate Rhythm: regular rhythm Heart sounds: S1 normal heart sound present and S2 normal heart sound present Peripheral pulses: Peripheral pulses 2+ throughout GI: Inspection: normal to inspection Auscultation: normal bowel sounds Back/Spine/Pelvis: Back: no CVA tenderness Cervical Spine: cervical ROM normal Thoracic/Lumbar Spine: thoracic and lumbar spine normal to inspection Pelvis: no pain with anterior-posterior compression Skin: General skin exam: normal color Lesions: no lesions Rashes: no rashes Trauma: no lacerations or abrasions Wounds: no wounds Hair: normal Nails: normal Other: Macerated skin to the buttock most likely due to shearing. Fungal infection to bilateral groin Neuro: General: oriented to person, oriented to place, oriented to time and patient oriented x3 Cranial nerves: Yes Equal, round and reactive pupils present and Yes Normal hearing present Cognition (Neuro): normal cognition Speech: normal spee
[2020-09-05] MEDS: PANTOPRAZOLE SODIUM IV 40 MG VIAL IV PUSH (15:03)
[2020-09-05 22:37] LABS: IFOB Positive Control Positive; Immunochemical Fecal Occult Bl Negative (N)
[2020-09-06 06:00] VITALS: BP 121/44; PULSE 73; RESP 18; TEMP 36.7; O2SAT 96
[2020-09-06] MEDS: LEVOTHYROXINE SODIUM 100 MCG TABLET 200 MCG PO (06:35)
[2020-09-06] MEDS: LACTATED RINGERS 1,000 ML 75 ML IV CONT ×2 (07:34→21:13)
[2020-09-06 08:33] LABS: Anion Gap 5 mmol/L (8-16); Blood Urea Nitrogen 9 mg/dL (7-17); Calcium 7.2 mg/dL (8.4-10.2); Carbon Dioxide 30 mmol/L (22-30); Chloride 102 mmol/L (98-107); Estimated CRCL calculation 50 ml/min; Estimated Glomerular Filt Rate > 60; Glucose 94 mg/dL (65-105); Potassium 3.5 mmol/L (3.4-5.0); Sodium 137 mmol/L (137-145)
[2020-09-06] MEDS: POTASSIUM CHLORIDE 20 MEQ TABLET.ER PO ×2 (08:37→18:12)
[2020-09-06] MEDS: PANTOPRAZOLE SODIUM IV 40 MG VIAL IV PUSH (08:37)
[2020-09-06] MEDS: ursodioL 300 MG CAPSULE PO ×2 (08:37→21:14)
--- NOTE | 2020-09-06 13:30 | PM.PNGS ---
Progress Note: A&P Assessment and Plan (1) Biliary sludge: Onset Date: ~08/2020 Code(s): K83.8 - Other specified diseases of biliary tract Status: Acute Assessment and Plan: NPO after midnight for anticipated lap eddi tomorrow Dr. Navas will see tomorrow. Subjective Subjective Date/Time Seen: 09/06/20 13:30 Interval history: No changes. Having some diarrhea, but no nausea, tolerating diet. Exam GI: Inspection: non-distended GI Palp: Yes Soft to palpation, No Tenderness to palpation present (GI) and No Guarding due to palpation present (GI) Objective Data Vital Signs Vital Signs: Vital Signs - 24 hr 09/05/20 14:00 09/05/20 16:00 09/05/20 21:41 Temperature 36.2 C L 37.6 C Pulse Rate 77 69 73 Respiratory Rate 18 18 Blood Pressure 119/48 L 118/44 L Pulse Oximetry 97 95 09/06/20 06:00 Temperature 36.7 C Pulse Rate 73 Respiratory Rate 18 Blood Pressure 121/44 L Pulse Oximetry 96 Intake/Output Intake/Output: Intake & Output 09/03/20 09/04/20 09/05/20 09/06/20 23:59 23:59 23:59 23:59 Intake Total 1830 5170 2110 Output Total 2150 800 Balance 1830 3020 1310 Meds/Results Medications: Active Medications Generic Name Dose Route Start Last Admin Trade Name Freq PRN Reason Stop Dose Admin Fluticasone Propionate 2 spray 09/04/20 14:00 Fluticasone Propionate 0.05% Na Spr 16 Gm Btl (*Bkc) NASAL DAILY PRN Congestion Glucagon 1 mg 09/06/20 11:39 Glucagon For Inj 1 Mg Vial IM PRN PRN BLGL<60 Lactated Ringer's 1,000 mls @ 75 mls/hr 09/04/20 11:20 09/06/20 07:34 Lr - Lactated Ringers Iv IV CONT 75 mls/hr .[id number] SANDRA Administration Ceftriaxone Sodium/Dextrose 1 gm in 50 mls @ 100 mls/hr 09/05/20 09:00 09/06/20 08:41 Rocephin 1 Gm/D5w 50 Ml IVPB 100 mls/hr Q24H SANDRA Administration Levothyroxine Sodium 200 mcg 09/05/20 06:30 09/06/20 06:35 Levothyroxine Sodium 100 Mcg Tablet PO 200 mcg DAILY@0630 SANDRA Administration Loperamide HCl 0 mg 09/04/20 14:00 Loperamide Hcl 2 Mg Capsule BY MOUTH PRN PRN Diarrhea Meclizine HCl 25 mg 09/04/20 14:00 Meclizine Hcl 25 Mg Tablet PO TID PRN Dizziness Miconazole Nitrate 1 applic 09/04/20 21:00 09/06/20 08:36 Miconazole 2% Antifungal Ointment 56 Gm TOPICAL 1 applic Q12HR SANDRA Administration Ondansetron HCl 4 mg 09/04/20 11:18 Ondansetron Inj 4 Mg/2 Ml Vial IV PUSH Q4H PRN Nausea Pantoprazole Sodium 40 mg 09/05/20 09:00 09/06/20 08:37 Pantoprazole Sodium Iv 40 Mg Vial IV PUSH 40 mg QAM SANDRA Administration Potassium Chloride 20 meq 09/04/20 17:00 09/06/20 08:37 Potassium Chloride 20 Meq Tablet.Er PO 20 meq BID SANDRA Administration Tramadol HCl 50 mg 09/04/20 14:00 Tramadol Hcl (*Crx) 50 Mg Tablet PO Q4H PRN Severe Pain (Scale Score 7-10) Ursodiol 300 mg 09/04/20 21:00 09/06/20 08:37 Ursodiol 300 Mg Capsule PO 300 mg Q12HR SANDRA Administration Radiology Results: ITS Impressions Abdomen Ultrasound 09/04/20 08:03 IMPRESSION: 1. Upper limits of normal for age common bile duct diameter of 8 mm which is decreased since the prior study. Otherwise unremarkable right upper quadrant ultrasound. Labs Labs: Laboratory Results - last 24 hr 09/05/20 09/06/20 14:41 07:47 Sodium 137 Potassium 3.5 Chloride 102 Carbon Dioxide 30 Anion Gap 5 L BUN 9 D Creatinine 0.80 Estim Creat Clear Calc 50 Estimated GFR > 60 Glucose 94 Calcium 7.2 L Stl Occult Blood (IFOB) Negative Quality VTE Prophylaxis VTE prophylaxis: mechanical ordered
[2020-09-06 13:46] VITALS: BP 110/40; PULSE 78; RESP 20; TEMP 36.5; O2SAT 100
--- NOTE | 2020-09-06 16:10 | PM.IMPN ---
Progress Note: A&P Assessment and Plan (1) Dysfunctional gallbladder: Code(s): K82.8 - Other specified diseases of gallbladder Status: Acute Assessment and Plan: Awaiting surgery tomorrow (2) Urinary tract infection: Onset Date: ~08/2020 Qualifiers: Encounter type: sequela Indwelling urinary catheter type: indwelling urethral catheter Urinary tract infection type: catheter-associated UTI Qualified Code(s): T83.511S - Infection and inflammatory reaction due to indwelling urethral catheter, sequela; N39.0 - Urinary tract infection, site not specified Code(s): N39.0 - Urinary tract infection, site not specified Status: Acute Assessment and Plan: The patient was here 3 weeks ago and was diagnosed with a urinary tract infection however her urine and blood cultures were negative. She does have a chronic indwelling Zhu catheter. (3) Hypertension: Onset Date: Unknown Code(s): I10 - Essential (primary) hypertension Status: Chronic Assessment and Plan: continue to watch BPs (4) Hyperlipidemia: Onset Date: Unknown Code(s): E78.5 - Hyperlipidemia, unspecified Status: Chronic Assessment and Plan: I am holding her atorvastatin for now. (5) Acute hypokalemia: Onset Date: ~09/04/20 Code(s): E87.6 - Hypokalemia Status: Resolved Assessment and Plan: REsolved (6) Acute renal insufficiency: Code(s): N28.9 - Disorder of kidney and ureter, unspecified Status: Acute Assessment and Plan: Hold diuretics and any nephrotoxic medications. Subjective Date/time seen: 09/06/20 16:10 Interval history: 85-year-old female patient who resides at [facility]. The patient was just discharged from here on 08/17/2020. The patient had a MRCP and ERCP and the patient was found have biliary sludge. The patient was placed on Actigall. The patient tells me that she was scheduled to have surgery on 09/09/2020 for a laparoscopic cholecystectomy. Surgery Preponed to Monday. Pt can advance to soft diet Review of Systems Review of Systems: All systems reviewed & are unremarkable except as noted in HPI and below Exam Const: General: cooperative, no acute distress, alert, awake and Physically active Eyes: Eyelids: eyelids normal Conjunctivae: conjunctivae normal Sclera: sclerae normal Cornea: corneas normal Pupils: Equal, round and reactive pupils present EOM: EOMs intact bilaterally Neck: Neck: normal visual inspection, full ROM, no lymphadenopathy, trachea midline and supple Thyroid: thyroid normal Carotids: normal carotid upstroke Lymphatic: no lymphadenopathy noted Chest: Chest palpation & inspection: normal inspection of the chest Resp: Effort & Inspection: normal respiratory effort Auscultation: clear to auscultation bilaterally Percussion: percussion normal Cardio: Palpation: normal PMI Rate: regular rate Rhythm: regular rhythm Skin: Other: Macerated skin to the buttock most likely due to shearing. Fungal infection to bilateral groin Neuro: General: oriented to person, oriented to place, oriented to time and patient oriented x3 Cranial nerves: Yes Equal, round and reactive pupils present and Yes Normal hearing present Cognition (Neuro): normal cognition Speech: normal speech Gait exam (Neuro): Normal gait present Motor exam (neuro): 5/5 motor strength present throughout Sensory Exam: normal sensation Extrem: General: normal to inspection Right upper extremity: normal to inspection Left upper extremity: normal to inspection Right lower extremity: normal to inspection and edema Details: non-pitting and 1+ Left lower extremity: normal to inspection and edema Details: non-pitting and 1+ Other: Patient has scars noted to bilateral knees were she had total knee replacement and scar to the left shoulder. Psych: Appearance: grossly normal Mental Status: mental status grossly normal
[2020-09-06 22:00] VITALS: BP 109/51; PULSE 75; RESP 18; TEMP 36.6; O2SAT 95
[2020-09-07 05:39] VITALS: BP 141/58; PULSE 88; RESP 20; TEMP 36.7; O2SAT 95
[2020-09-07] MEDS: LEVOTHYROXINE SODIUM 100 MCG TABLET 200 MCG PO (06:22)
[2020-09-07] MEDS: PANTOPRAZOLE SODIUM IV 40 MG VIAL IV PUSH (08:17)
[2020-09-07] MEDS: POTASSIUM CHLORIDE 20 MEQ TABLET.ER PO ×2 (08:18→17:33)
[2020-09-07] MEDS: ursodioL 300 MG CAPSULE PO ×2 (08:18→20:39)
[2020-09-07] MEDS: LACTATED RINGERS 1,000 ML 75 ML IV CONT (11:08)
--- NOTE | 2020-09-07 11:09 | WPDHPUPDATE1 ---
History and Physical Update Update Date/Time: 09/07/20 11:09 History and Physical has been reviewed, including an updated exam of the patient. There are changes in the patient's condition. The patient's potassium has improved to the normal range over the weekend. Also the a UTI is noted to be positive for Klebsiella pneumonia. I have contacted the nurse and since this bacteria is resistant to the current antibiotic there checking with medicine to consider a alternative IV antibiotic dose. Risks, benefits, and alternatives of a laparoscopic cholecystectomy, possible intraoperative cholangiogram, possible open cholecystectomy have been discussed and questions answered. The patient was marked in her hospital room this date. Patient agrees to proceed with procedure.
[2020-09-07 11:20] LABS: Alanine Aminotransferase 11 U/L (4-35); Albumin Level 2.8 g/dL (3.5-5.1); Alkaline Phosphatase 130 U/L (38-126); Aspartate Amino Transferase 39 U/L (14-36); Bilirubin,Total 0.6 mg/dL (0.2-1.3)
--- NOTE | 2020-09-07 11:31 | PCNFU ---
Nutrition Follow-Up Complete: Inadequate oral intake related to nausea/vomiting as evidenced by NPO diet, reported poor intake prior to admission, and documented 5 pound weight loss x 1 month without trying. Goal: Patient to meet estimated nutritional needs. Limited progress toward goal. We will continue current goal. Pt current nutrition is NPO. Last recorded weight is 88 kg, no new weight since admit. Bowel Motility:Patient had bowel prep for colonoscopy today. Labs Reviewed: Alb 2.8 Meds Noted:Zosyn,KCL,Synthroid, LR Additional Notes: Nutrition follow up. Patient is currently NPO for laparoscopic cholecystectomy. Patient has been consuming 90-100% of meals prior to NPO. Agree with diet orders. Monitoring: Follow up every 3 days.
[2020-09-07 13:18] LABS: Lipase < 10 U/L (23-300)
--- NOTE | 2020-09-07 13:35 | PM.IMPN ---
Progress Note: A&P Assessment and Plan (1) Dysfunctional gallbladder: Code(s): K82.8 - Other specified diseases of gallbladder Status: Acute Assessment and Plan: Awaiting surgery tomorrow (2) Urinary tract infection: Onset Date: ~08/2020 Qualifiers: Encounter type: sequela Indwelling urinary catheter type: indwelling urethral catheter Urinary tract infection type: catheter-associated UTI Qualified Code(s): T83.511S - Infection and inflammatory reaction due to indwelling urethral catheter, sequela; N39.0 - Urinary tract infection, site not specified Code(s): N39.0 - Urinary tract infection, site not specified Status: Acute Assessment and Plan: The patient was here 3 weeks ago and was diagnosed with a urinary tract infection. Urine shows ESBL. (3) Hypertension: Onset Date: Unknown Code(s): I10 - Essential (primary) hypertension Status: Chronic Assessment and Plan: continue to watch BPs (4) Hyperlipidemia: Onset Date: Unknown Code(s): E78.5 - Hyperlipidemia, unspecified Status: Chronic Assessment and Plan: I am holding her atorvastatin for now. (5) Acute hypokalemia: Onset Date: ~09/04/20 Code(s): E87.6 - Hypokalemia Status: Resolved Assessment and Plan: REsolved (6) Acute renal insufficiency: Code(s): N28.9 - Disorder of kidney and ureter, unspecified Status: Acute Assessment and Plan: Hold diuretics and any nephrotoxic medications. Subjective Date/time seen: 09/07/20 13:35 Interval history: 85-year-old female patient who resides at [facility]. The patient was just discharged from here on 08/17/2020. The patient had a MRCP and ERCP and the patient was found have biliary sludge. The patient was placed on Actigall. The patient tells me that she was scheduled to have surgery on 09/09/2020 for a laparoscopic cholecystectomy. Surgery Preponed to Monday. Urine culture shows ESBL Review of Systems Review of Systems: All systems reviewed & are unremarkable except as noted in HPI and below Exam Const: General: cooperative, no acute distress, alert, awake and Physically active Nutritional Appearance: average body habitus and overweight Orientation/consciousness: oriented to person, oriented to place, oriented to time and patient oriented x3 Limitations: no limitations HENMT: Head: normal to inspection, No palpable skull fracture present, normocephalic and atraumatic Ears: hearing grossly normal bilaterally and external ears normal General nose exam: Normal external nose present, Normal nares present and No nasal polyps present Mouth: Yes Normal oral and palatal mucosa present Throat: posterior oropharynx normal Eyes: General: appearance normal, both eyes and all related structures Alignment and Position: alignment normal Periorbital: periorbital findings normal Eyelids: eyelids normal Conjunctivae: conjunctivae normal Sclera: sclerae normal Cornea: corneas normal Pupils: Equal, round and reactive pupils present EOM: EOMs intact bilaterally Neck: Neck: normal visual inspection, full ROM, no lymphadenopathy, trachea midline and supple Thyroid: thyroid normal Carotids: normal carotid upstroke Lymphatic: no lymphadenopathy noted Chest: Chest palpation & inspection: normal inspection of the chest Resp: Effort & Inspection: normal respiratory effort Auscultation: clear to auscultation bilaterally Percussion: percussion normal Cardio: Palpation: normal PMI Rate: regular rate Rhythm: regular rhythm Heart sounds: S1 normal heart sound present and S2 normal heart sound present Peripheral pulses: Peripheral pulses 2+ throughout GI: Inspection: normal to inspection Auscultation: normal bowel sounds Back/Spine/Pelvis: Cervical Spine: cervical ROM normal Thoracic/Lumbar Spine: thoracic and lumbar spine normal to inspection Pelvis: no pain with anterior-post
[2020-09-07 14:00] VITALS: BP 124/38; PULSE 86; RESP 16; TEMP 37.3; O2SAT 99
--- NOTE | 2020-09-07 15:20 | PC.NURSE ---
To OR per bed, IV on standby. Report given to RN.
[2020-09-07 15:45] VITALS: BP 104/64; PULSE 87; RESP 20; TEMP 37.3; O2SAT 99
[2020-09-07] MEDS: LACTATED RINGERS 1,000 ML 30 ML IV CONT (15:45)
--- NOTE | 2020-09-07 15:59 | WPDANESEPPF ---
Anes - Initial Pre Proc Eval Procedure: Operation Date: 09/07/20 14:00 Proposed Procedures p Laparoscopic Cholecystectomy ,Possible Intraoperative Cholangiograms,Possible open - Kevan Navas MD Date/Time: 09/07/20 15:59 Pre Op Diagnosis: hypokalemia/hypocalcemia/intractable nausea Patient Data Age: 85 Gender: F Height: 1.63 m Weight: 88 kg Last Vital Signs Temp 37.3 C 09/07/20 14:00 Pulse 86 09/07/20 14:00 Resp 16 09/07/20 14:00 BP 124/38 L 09/07/20 14:00 Pulse Ox 99 09/07/20 14:00 Allergies Allergy/AdvReac Type Severity Reaction Status Date / Time adhesive tape Allergy Mild Rash Verified 09/04/20 13:05 morphine Allergy Mild Rash Verified 09/04/20 13:05 Home Medications Medication Instructions Recorded Confirmed Type acetaminophen 500 mg PO Q4H PRN 08/11/20 09/04/20 History aspirin 81 mg PO DAILY 08/11/20 09/04/20 History atorvastatin 20 mg PO DAILY 08/11/20 09/04/20 History celecoxib 200 mg PO DAILY 08/11/20 09/04/20 History fluticasone propionate 2 spray INTRANASAL DAILY PRN 08/11/20 09/04/20 History furosemide 40 mg PO DAILY 08/11/20 09/04/20 History levothyroxine 200 mcg PO DAILY 08/11/20 09/04/20 History loratadine 10 mg PO DAILY PRN 08/11/20 09/04/20 History meclizine 25 mg PO TID PRN 08/11/20 09/04/20 History metolazone 5 mg PO EVERY OTHER DAY 08/11/20 09/04/20 History omeprazole 20 mg PO DAILY 08/11/20 09/04/20 History ondansetron HCl 4 mg PO Q4-5H PRN 08/11/20 09/04/20 History polyethylene glycol 3350 [Miralax] 17 g PO PRN PRN 08/11/20 09/04/20 History potassium chloride 20 meq PO BID 08/11/20 09/04/20 History spironolactone 25 mg PO DAILY 08/11/20 09/04/20 History tramadol 50 mg PO Q4H PRN 08/11/20 09/04/20 History calcium carbonate-vitamin D3 1 tablet PO TID 09/03/20 09/04/20 History [Calcium 600 + D(3)] cholecalciferol (vitamin D3) 125 mcg PO DAILY 09/03/20 09/04/20 History glucagon [Glucagon Emergency Kit] 1 mg IM PRN PRN 09/03/20 09/04/20 History metoprolol succinate 50 mg PO DAILY 09/03/20 09/04/20 History loperamide See Rx Instructions .ROUTE 09/04/20 09/04/20 History .COMPLEX PRN Laboratory Tests 09/07/20 09/07/20 10:01 10:01 Total Bilirubin 0.6 mg/dL mg/dL (0.2-1.3) Direct Bilirubin 0.0 mg/dL mg/dL (0-0.3) AST 39 U/L H U/L (14-36) ALT 11 U/L U/L (4-35) Alkaline Phosphatase 130 U/L H U/L (38-126) Total Protein 6.0 g/dL L g/dL (6.3-8.2) Albumin 2.8 g/dL L g/dL (3.5-5.1) Lipase < 10 U/L L U/L (23-300) Blood Type A Positive Antibody Screen Negative ECG: Date of Service: 08/14/20 Procedure(s): CA 12 lead EKG Accession Number(s): [id number] cc: ~ Measurements Intervals [place] Rate: 75 P: 44 IA: 182 QRS: -16 QRSD: 96 T: -10 QT: 388 QTc: 436 Interpretive Statements SINUS RHYTHM LOW QRS VOLTAGE IN PRECORDIAL LEADS VOLTAGE CRITERIA FOR LVH BORDERLINE ST-T WAVE ABNORMALITY- ANTEROLAT/INF LEADS BASELINE ARTIFACT- I, II, III, AVR, AVL, AVF, V1, V3 BORDERLINE ECG Electronically Signed On 08-14-2020 17:31:16 CDT by Erick Zamora D.O. Patient hx anesthesia problems: none Family hx anesthesia problems: none PMFSH Past Medical History Medical History (Updated 09/07/20 @ 16:00 by Leo Stanton MD) Biliary sludge (~08/2020) Common bile duct dilatation Diabetes History of breast cancer Lumpectomy Hyperlipidemia (Unknown) Hypertension (Unknown) Hypothyroidism (Unknown) Leukocytosis (Unknown) Nausea Obesity Rheumatoid arthritis Surgical History Surgical History H/O bilateral cataract extraction H/O haile
--- NOTE | 2020-09-07 17:20 | PC.NURSE ---
Returned from OR per bed, surgery cancelled until 09/08. Report received from RN.
[2020-09-07 22:00] VITALS: BP 108/38; PULSE 78; RESP 20; TEMP 36.7; O2SAT 95
[2020-09-08] VITALS (17 sets, daily range): BP systolic 87–134; BP diastolic 32–60; PULSE 57–84; RESP 18–25; TEMP 35.7–36.7; O2SAT 94–100
[2020-09-08] MEDS: KCL 30 MEQ/0.9% SOD CHL 1,000 ML 70 ML IV CONT (03:29)
[2020-09-08 06:18] LABS: Anion Gap 7 mmol/L (8-16); Blood Urea Nitrogen 8 mg/dL (7-17); Calcium 6.7 mg/dL (8.4-10.2); Carbon Dioxide 27 mmol/L (22-30); Chloride 102 mmol/L (98-107); Estimated CRCL calculation 56 ml/min; Estimated Glomerular Filt Rate > 60; Glucose 88 mg/dL (65-105); Potassium 3.8 mmol/L (3.4-5.0); Sodium 136 mmol/L (137-145)
[2020-09-08] MEDS: LEVOTHYROXINE SODIUM 100 MCG TABLET 200 MCG PO (06:19)
--- NOTE | 2020-09-08 06:48 | PC.NURSE ---
0645: Surgery arrived to transport patient. Consent form signed and sent with along with 0600 IV abx to be administered. Pt awake, alert and in no apparent distress.
--- NOTE | 2020-09-08 06:54 | P.PNAN_ITS ---
Anes - Eval Final PreProcedure Day of Procedure 09/08/20 06:54 Patient weight: obese Heart: regular rate and rhythm Lungs: clear to auscultation Airway: Mallampati scale class II Neurological: alert and oriented Last oral intake: >/= 8 hours ASA classification: III Emergent: no Anesthetic plan: proceed Anesthesia type and monitoring: general ETT and standard monitoring Informed Consent: The patient's anesthetic plan and its attendant risks and be nefits were discussed with the patient/family/POA. Questions were solicited and answers provided to the satisfaction of the patient/family/POA.
[2020-09-08] MEDS: ACETAMINOPHEN 500 MG TABLET 1000 MG PO (07:11)
[2020-09-08] MEDS: KETOROLAC 15 MG/ML VIAL (*BKC) IV PUSH (07:11)
[2020-09-08] MEDS: LACTATED RINGERS 1,000 ML 30 ML IV CONT ×2 (07:13→09:46)
--- NOTE | 2020-09-08 07:15 | WPDHPUPDATE1 ---
History and Physical Update Update Date/Time: 09/08/20 07:15 History and Physical has been reviewed, including an updated exam of the patient. There are changes in the patient's condition. Pt was discovered to have a UTI (ESBL type) and is now on the appropriate antibiotic for 24 hrs. Pt now with not much symptoms of He GB disease. Risks, benefits, and alternatives of a laparoscopic Cholecystectomy, possible IOC, possible open Cholecystectomy have been discussed and questions answered. Patient agrees to proceed with procedure.
[2020-09-08] MEDS: BUPIVACAINE/EPINEPHRINE 0.5% 10 ML VIAL 20 ML INFILTRATE (09:25)
[2020-09-08] MEDS: fentaNYL CITRATE INJ (*CRX) 100 MCG/2 ML VIAL 25 MCG IV PUSH ×4 (10:12→10:37)
[2020-09-08 10:41] LABS: Glucose Point of Care 144 mg/dl (65-105)
--- NOTE | 2020-09-08 10:42 | ECG_ITS ---
Measurements Intervals [place] Rate: 62 P: 14 SC: 220 QRS: -9 QRSD: 112 T: 20 QT: 444 QTc: 452 Interpretive Statements SINUS RHYTHM WITH FIRST DEGREE AV BLOCK BORDERLINE ST-T WAVE ABNORMALITY- ANTERIOR LEADS BASELINE ARTIFACT- I, II, III, AVL, AVF ABNORMAL ECG Electronically Signed On 09-08-2020 12:07:25 CDT by Erick Zamora D.O.
[2020-09-08] MEDS: POTASSIUM CHLORIDE 20 MEQ TABLET.ER PO ×2 (11:41→17:22)
[2020-09-08] MEDS: PANTOPRAZOLE SODIUM IV 40 MG VIAL IV PUSH (11:41)
[2020-09-08] MEDS: ursodioL 300 MG CAPSULE PO ×2 (11:42→20:12)
--- NOTE | 2020-09-08 13:16 | P.OP_ITS ---
Procedure Note - Detailed Date of Procedure 09/08/20 Pre-op Diagnosis hypokalemia/hypocalcemia/intractable nausea 2. 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 Findings Slightly inflamed (chronic) gallbladder with otherwise normal anatomy. Description of Procedure Patient was seen preoperatively in the holding area and risks, benefits and alternatives confirmed. Patient was taken to the operating room and general anesthesia was induced. A time out was then preformed with the surgery team confirming patient and site of surgery. The abdomen was prepped and draped in the usual sterile fashion. Incision was made just below the umbilicus with an 11 blade knife. I placed 2 stay sutures of O- Vicryl on either side of the mid- line fascia beneath the umbilicus and was then able to slide in the Reynolds cannula through the fascial defect into the peritoneum. First under low flow and then under high flow the abdomen was insufflated with carbon dioxide never exceeding a pressure of 14. Three 5 mm trocars were then introduced under direct vision. The following trocars were introduced under direct vision: a 5 mm in the epigastrium and two 5 mm trocars along the right costal margin laterally in the subcostal area. There were significant omental adhesions to the underside of the gallbladder. These were taken down with blunt and sharp dissection using some Bovie cautery for hemostasis. We were able to dissect this completely away from the neck of the gallbladder. I then carefully used the L-shaped cautery and the [place] dissector to dissect out the triangle of [place]. I then was able to dissect out both the cystic duct and cystic artery and identify a window of safety. The gall bladder was grasped and the cystic duct and artery were dissected free and clipped with an 5 mm endo-clip perforator operator. The cystic duct and artery were clipped with use of 2 clips on the patient's side 1 on the gallbladder side utilizing a 5 mm endoclip- perforator operator. The cystic duct was then transected. The cystic artery was also transected at this point. The gall bladder was removed using electrocautery and then removed from the abdomen using an endobag. The trocars were removed visualizing hemostasis and the remaining gas evacuated. The large trocar site at the umbilicus was closed with use of the 2 stay sutures of 0 Vicryl mentioned above and also two figure of 8 O-Vicryl suture. The 2 stay sutures mentioned above on either side of the fascia were also tied t ogether to help approximate this midline fascia. Further local anesthetic was placed into each incision for postop pain control. The skin incisions were closed with subcuticular suture of 4-0 Monocryl. Surgical glue then was applied to all the incisions. Patient tolerated the procedure well was taken to the recovery room in good condition. Implants none Estimated Blood Loss -30.0 Urine Output -120.0 Packing No Pathology yes (Gallbladder) Complications No immediate complications Condition stable Disposition PACU
--- NOTE | 2020-09-08 13:28 | PM.IMPN ---
Progress Note: A&P Assessment and Plan (1) Dysfunctional gallbladder: Code(s): K82.8 - Other specified diseases of gallbladder Status: Acute Assessment and Plan: Sp lap eddi today (2) Urinary tract infection: Onset Date: ~08/2020 Qualifiers: Encounter type: sequela Indwelling urinary catheter type: indwelling urethral catheter Urinary tract infection type: catheter-associated UTI Qualified Code(s): T83.511S - Infection and inflammatory reaction due to indwelling urethral catheter, sequela; N39.0 - Urinary tract infection, site not specified Code(s): N39.0 - Urinary tract infection, site not specified Status: Acute Assessment and Plan: Urine shows ESBL. pt is on iv zosyn (3) Hypertension: Onset Date: Unknown Code(s): I10 - Essential (primary) hypertension Status: Chronic Assessment and Plan: continue to watch BPs, bp little low today continue fluids (4) Hyperlipidemia: Onset Date: Unknown Code(s): E78.5 - Hyperlipidemia, unspecified Status: Chronic Assessment and Plan: I am holding her atorvastatin for now. (5) Acute hypokalemia: Onset Date: ~09/04/20 Code(s): E87.6 - Hypokalemia Status: Resolved Assessment and Plan: REsolved (6) Acute renal insufficiency: Code(s): N28.9 - Disorder of kidney and ureter, unspecified Status: Resolved Assessment and Plan: Hold diuretics as Bp is low Subjective Date/time seen: 09/08/20 13:28 Interval history: 85-year-old female patient who resides at [facility]. The patient was just discharged from here on 08/17/2020. The patient had a MRCP and ERCP and the patient was found have biliary sludge. Sp laparoscopic cholecystectomy. Urine culture shows ESBL. Bp slightly low continue to watch. Review of Systems Review of Systems: All systems reviewed & are unremarkable except as noted in HPI and below Exam Const: General: cooperative Orientation/consciousness: oriented to person, oriented to place, oriented to time and patient oriented x3 Chest: Chest palpation & inspection: normal inspection of the chest Resp: Effort & Inspection: normal respiratory effort Auscultation: clear to auscultation bilaterally Percussion: percussion normal Cardio: Palpation: normal PMI Rate: regular rate Rhythm: regular rhythm Heart sounds: S1 normal heart sound present and S2 normal heart sound present GI: Inspection: other (Sp lap eddi with small incision fresh ) Neuro: General: oriented to person, oriented to place, oriented to time and patient oriented x3 Cranial nerves: Yes Equal, round and reactive pupils present and Yes Normal hearing present Cognition (Neuro): normal cognition Speech: normal speech Gait exam (Neuro): Normal gait present Motor exam (neuro): 5/5 motor strength present throughout Sensory Exam: normal sensation Extrem: Right lower extremity: no edema Objective Data Vital Signs Vital Signs: Vital Signs - 24 hr 09/07/20 14:00 09/07/20 15:45 09/07/20 22:00 Temperature 37.3 C 37.3 C 36.7 C Pulse Rate 86 87 78 Respiratory Rate 16 20 20 Blood Pressure 124/38 L 104/64 108/38 L Pulse Oximetry 99 99 95 09/08/20 05:52 09/08/20 06:53 09/08/20 09:46 Temperature 36.2 C L 36.2 C L 36.4 C Pulse Rate 84 82 63 Respiratory Rate 20 18 25 H Blood Pressure 108/53 L 130/45 L 110/46 L Pulse Oximetry 95 99 100 09/08/20 10:00 09/08/20 10:10 09/08/20 10:25 Temperature Pulse Rate 62 65 60 Respiratory Rate 18 20 18 Blood Pressure 111/58 L 104/47 L 105/49 L Pulse Oximetry 100 100 96 09/08/20 10:40 09/08/20 10:55 09/08/20 11:10 Temperature Pulse Rate 58 L 61 61 Respiratory Rate 22 H 20 20 Blood Pressure 98/45 L 104/50 L 87/41 L Pulse Oximetry 94 97 94 09/08/20 11:20 Temperature Pulse Rate 57 L Respiratory Rate 20 Blood Pressure 90/43 L Pulse Oximetry 94 Intake/Output Intake/Output: I
[2020-09-09] MEDS: HYDROcodone/acetaminophen (*CRX) 5-325 MG TABLET 1 TAB PO ×4 (00:21→20:45)
[2020-09-09] MEDS: KCL 30 MEQ/0.9% SOD CHL 1,000 ML 50 ML IV CONT ×2 (03:05→23:50)
[2020-09-09 06:00] VITALS: BP 135/60; PULSE 85; RESP 20; TEMP 36.3; O2SAT 97
[2020-09-09] MEDS: LEVOTHYROXINE SODIUM 100 MCG TABLET 200 MCG PO (06:01)
[2020-09-09 06:15] LABS: Hematocrit 40.3 % (37.0-47.0); Hemoglobin 12.2 g/dL (12.0-15.0); Mean Corpuscular HGB Conc 30.3 g/dl (32-36); Mean Corpuscular Hemoglobin 31.2 pg (26-34); Mean Corpuscular Volume 103.1 fl (80-100); Mean Platelet Volume 10.3 fl (7.4-10.4); Platelet Count Result 156 k/mm3 (150-375); Red Blood Count 3.91 M/mm3 (4.2-5.4); Red Cell Distribution Width 14.1 % (11.5-14.5)
[2020-09-09 06:23] LABS: Alanine Aminotransferase 17 U/L (4-35); Albumin Level 2.4 g/dL (3.5-5.1); Alkaline Phosphatase 110 U/L (38-126); Anion Gap 7 mmol/L (8-16); Aspartate Amino Transferase 69 U/L (14-36); Bilirubin,Total 0.6 mg/dL (0.2-1.3); Blood Urea Nitrogen 8 mg/dL (7-17); Calcium 6.4 mg/dL (8.4-10.2); Carbon Dioxide 19 mmol/L (22-30); Chloride 108 mmol/L (98-107); Estimated CRCL calculation 56 ml/min; Estimated Glomerular Filt Rate > 60; Glucose 82 mg/dL (65-105); Potassium 4.7 mmol/L (3.4-5.0); Sodium 134 mmol/L (137-145)
--- NOTE | 2020-09-09 07:50 | WPDANESPN ---
Anes - Prog Note Post-Op Date/Time: 09/09/20 07:50 Cardiovascular status: normal Respiratory status: normal Airway patency: baseline Mental status: baseline Post-Op hydration status: normal Vital Signs: Last Vital Signs Temp 97.4 F L 09/09/20 06:00 Pulse 85 09/09/20 06:00 Resp 20 09/09/20 06:00 BP 135/60 09/09/20 06:00 Pulse Ox 97 09/09/20 06:00 Pain Score (VAS): 2 I/O: Intake & Output 09/08/20 09/08/20 09/09/20 15:59 23:59 07:59 Intake Total 350 1840 350 Output Total 40 100 150 Balance 310 1740 200 Laboratory Tests 09/09/20 05:59 09/09/20 05:59 09/08/20 09/09/20 09/09/20 10:01 05:59 05:59 WBC 10.0 RBC 3.91 L Hgb 12.2 Hct 40.3 MCV 103.1 H D MCH 31.2 MCHC 30.3 L RDW 14.1 Plt Count 156 MPV 10.3 Sodium 134 L Potassium 4.7 Chloride 108 H Carbon Dioxide 19 L Anion Gap 7 L BUN 8 Creatinine 0.70 Estim Creat Clear Calc 56 Estimated GFR > 60 Glucose 82 POC Capillary Glucose 144 H Calcium 6.4 L Total Bilirubin 0.6 AST 69 H ALT 17 Alkaline Phosphatase 110 Total Protein 6.0 L Albumin 2.4 L Post-procedural complaints: none Patient Feedback: Patient satisfied with anesthetic care.
[2020-09-09] MEDS: POTASSIUM CHLORIDE 20 MEQ TABLET.ER PO ×2 (09:14→17:05)
[2020-09-09] MEDS: ENOXAPARIN 40 MG/0.4 ML SYRINGE SUB-Q (09:14)
[2020-09-09] MEDS: PANTOPRAZOLE SODIUM IV 40 MG VIAL IV PUSH (09:14)
[2020-09-09 14:00] VITALS: BP 111/77; PULSE 106; RESP 22; TEMP 36.5; O2SAT 100
--- NOTE | 2020-09-09 14:06 | PM.PNGS ---
Progress Note: A&P Assessment and Plan (1) Biliary sludge: Onset Date: ~08/2020 Code(s): K83.8 - Other specified diseases of biliary tract Status: Acute Assessment and Plan: POD#1 laparoscopic cholecystectomy and patient is doing well. Tolerating her diet. Continue low fat diet on discharge. Okay from a surgical standpoint to discharge the patient when medically stable and she has received her full treatment for the UTI. I spoke with the Hospitalist. Follow up with Dr. Navas in 2 weeks. Would recommend considering to continue PT for her when going back to [facility]. We will sign off at this point. Please let us know if there are any other surgical needs in the future. Additional Plan I have discussed the patient's case and plan of care with Dr. Navas. Subjective Subjective Date/Time Seen: 09/09/20 10:06 Interval history: Patient seen today and doing well. She has just gotten up to the chair this morning for the first time since surgery and is feeling weak. She is worried about going back to the detention without good strength. PT has been ordered and saw her this morning. Her pain is well controlled with [place]. She has the gutierrez in place. She is tolerating her diet without nausea or vomiting. No other complaints at this time. Review of Systems Review of Systems: All systems reviewed & are unremarkable except as noted in HPI and below Exam Const: General: comfortable, no acute distress, alert and awake Orientation/consciousness: patient oriented x3 Resp: Effort & Inspection: normal respiratory effort Auscultation: clear to auscultation bilaterally Cardio: Rate: regular rate Rhythm: regular rhythm GI: Inspection: non-distended and incision (Abdominal incisions clean and dry, glue intact.) GI Palp: Yes Soft to palpation and Yes Tenderness to palpation present (GI) (incisional) Auscultation: normal bowel sounds Urinary Catheter: Urinary Catheter: patent and draining and urine clear Skin: General skin exam: normal color Neuro: General: moves all extremities and no focal motor deficits Extrem: General: no clubbing, cyanosis or edema and no calf tenderness Psych: Mental Status: mental status grossly normal Insight: Good insight present (Psych) Judgement: Good judgement present (Psych) Objective Data Vital Signs Vital Signs: Vital Signs - 24 hr 09/08/20 17:12 09/08/20 18:39 09/08/20 22:00 Temperature 98.0 F 96.3 F L 97.7 F Pulse Rate 63 77 80 Respiratory Rate 18 18 20 Blood Pressure 100/49 L 99/57 L 134/60 Pulse Oximetry 95 97 96 09/09/20 06:00 Temperature 97.4 F L Pulse Rate 85 Respiratory Rate 20 Blood Pressure 135/60 Pulse Oximetry 97 Intake/Output Intake/Output: Intake & Output 09/06/20 09/07/20 09/08/20 09/09/20 23:59 23:59 23:59 23:59 Intake Total 4580 1490 2440 690 Output Total 1400 875 940 150 Balance 3180 615 1500 540 Meds/Results Medications: Active Medications Generic Name Dose Route Start Last Admin Trade Name Freq PRN Reason Stop Dose Admin Acetaminophen 500 mg 09/08/20 11:27 Acetaminophen 500 Mg Tablet PO Q6H PRN Mild Pain (1-3) or Fever Hydrocodone Bitart/Acetaminophen 1 tab 09/08/20 11:27 09/09/20 06:01 Hydrocodone/Acetaminophen (*Crx) 5-325 Mg Tablet PO 1 tab Q4H PRN Administration Pain Rated 4-6 Hydrocodone Bitart/Acetaminophen 1 tab 09/08/20 11:27 Hydrocodone/Acetaminophen (*Crx) 7.5-325 Mg Tablet PO Q6H PRN Pain Rated 7-10 Diphenhydramine HCl 25 mg 09/08/20 11:27 Diphenhydramine Hcl Inj 50 Mg/Ml Vial IV PUSH Q6H PRN Itching Enoxaparin Sodium 40 mg 09/09/20 09:00 09/09/20 09:14 Enoxaparin 40 Mg/0.4 Ml Syringe SUB-Q 40 mg DAILY SANDRA Administration Fluticasone Propionate 2 spray 09/04/20 14:00 Fluticasone Propionate 0.05% Na Spr 16 Gm Btl (*Bkc) NASAL DAILY PRN Congestion Glucagon 1 mg 09/06/20 11:39 Glucagon For Inj 1 Mg Vial I
--- NOTE | 2020-09-09 15:54 | PM.IMPN ---
Progress Note: A&P Assessment and Plan (1) Dysfunctional gallbladder: Code(s): K82.8 - Other specified diseases of gallbladder Status: Acute Assessment and Plan: Sp lap eddi today (2) Urinary tract infection: Onset Date: ~08/2020 Qualifiers: Encounter type: sequela Indwelling urinary catheter type: indwelling urethral catheter Urinary tract infection type: catheter-associated UTI Qualified Code(s): T83.511S - Infection and inflammatory reaction due to indwelling urethral catheter, sequela; N39.0 - Urinary tract infection, site not specified Code(s): N39.0 - Urinary tract infection, site not specified Status: Acute Assessment and Plan: Urine shows ESBL. pt is on iv zosyn day 2 continue for another day rpt UA/ UC today (3) Hypertension: Onset Date: Unknown Code(s): I10 - Essential (primary) hypertension Status: Chronic Assessment and Plan: Resolved (4) Hyperlipidemia: Onset Date: Unknown Code(s): E78.5 - Hyperlipidemia, unspecified Status: Chronic Assessment and Plan: I am holding her atorvastatin for now. (5) Acute hypokalemia: Onset Date: ~09/04/20 Code(s): E87.6 - Hypokalemia Status: Resolved Assessment and Plan: REsolved (6) Acute renal insufficiency: Code(s): N28.9 - Disorder of kidney and ureter, unspecified Status: Resolved Assessment and Plan: Hold diuretics as Bp is low Subjective Date/time seen: 09/09/20 15:54 Interval history: 85-year-old female patient who resides at [facility]. The patient was just discharged from here on 08/17/2020. The patient had a MRCP and ERCP and the patient was found have biliary sludge. Sp laparoscopic cholecystectomy. Urine culture shows ESBL. Bp slightly low continue to watch. Review of Systems Review of Systems: All systems reviewed & are unremarkable except as noted in HPI and below Exam Const: General: cooperative Nutritional Appearance: average body habitus and overweight Orientation/consciousness: oriented to person, oriented to place, oriented to time and patient oriented x3 Limitations: no limitations HENMT: Head: normal to inspection, No palpable skull fracture present, normocephalic and atraumatic Ears: hearing grossly normal bilaterally and external ears normal General nose exam: Normal external nose present, Normal nares present and No nasal polyps present Mouth: Yes Normal oral and palatal mucosa present Throat: posterior oropharynx normal Eyes: General: appearance normal, both eyes and all related structures Alignment and Position: alignment normal Periorbital: periorbital findings normal Eyelids: eyelids normal Conjunctivae: conjunctivae normal Sclera: sclerae normal Cornea: corneas normal Pupils: Equal, round and reactive pupils present EOM: EOMs intact bilaterally Neck: Neck: normal visual inspection, full ROM, no lymphadenopathy, trachea midline and supple Thyroid: thyroid normal Carotids: normal carotid upstroke Lymphatic: no lymphadenopathy noted Chest: Chest palpation & inspection: normal inspection of the chest Resp: Effort & Inspection: normal respiratory effort Auscultation: clear to auscultation bilaterally Percussion: percussion normal Cardio: Palpation: normal PMI Rate: regular rate Rhythm: regular rhythm Heart sounds: S1 normal heart sound present and S2 normal heart sound present Peripheral pulses: Peripheral pulses 2+ throughout GI: Inspection: other (Sp lap eddi with small incision fresh ) Auscultation: normal bowel sounds Neuro: General: oriented to person, oriented to place, oriented to time and patient oriented x3 Cranial nerves: Yes Equal, round and reactive pupils present and Yes Normal hearing present Cognition (Neuro): normal cognition Speech: normal speech Gait exam (Neuro): Normal gait present Motor exam (neuro): 5/5 motor strength present throughout
[2020-09-09 20:24] VITALS: BP 108/55; PULSE 83; RESP 20; TEMP 37.3; O2SAT 94
[2020-09-10] MEDS: LEVOTHYROXINE SODIUM 100 MCG TABLET 200 MCG PO (05:27)
[2020-09-10 05:39] VITALS: BP 119/53; PULSE 78; RESP 16; TEMP 36.6; O2SAT 95
--- NOTE | 2020-09-10 08:15 | PM.IMPN ---
Progress Note: A&P Assessment and Plan (1) Dysfunctional gallbladder: Code(s): K82.8 - Other specified diseases of gallbladder Status: Acute Assessment and Plan: Sp lap eddi 09/08/2020 doing well tolerating low fat diet surgery has signed off (2) Urinary tract infection: Onset Date: ~08/2020 Qualifiers: Encounter type: sequela Indwelling urinary catheter type: indwelling urethral catheter Urinary tract infection type: catheter-associated UTI Qualified Code(s): T83.511S - Infection and inflammatory reaction due to indwelling urethral catheter, sequela; N39.0 - Urinary tract infection, site not specified Code(s): N39.0 - Urinary tract infection, site not specified Status: Acute Assessment and Plan: Urine shows ESBL. pt is on iv zosyn day 2 continue for another day rpt UA/ UC today (3) Hypertension: Onset Date: Unknown Code(s): I10 - Essential (primary) hypertension Status: Chronic Assessment and Plan: Resolved (4) Hyperlipidemia: Onset Date: Unknown Code(s): E78.5 - Hyperlipidemia, unspecified Status: Chronic Assessment and Plan: I am holding her atorvastatin for now. (5) Acute hypokalemia: Onset Date: ~09/04/20 Code(s): E87.6 - Hypokalemia Status: Resolved Assessment and Plan: REsolved (6) Acute renal insufficiency: Code(s): N28.9 - Disorder of kidney and ureter, unspecified Status: Resolved Assessment and Plan: Hold diuretics as Bp is low Subjective Date/time seen: 09/09/2020 85-year-old female patient who resides at [facility]. The patient was just discharged from here on 08/17/2020. Sp laparoscopic cholecystectomy. Urine culture shows ESBL. rpt UA/ UC today.. Review of Systems Review of Systems: All systems reviewed & are unremarkable except as noted in HPI and below Exam Narrative: Exam Narrative: Const: General: cooperative Orientation/consciousness: oriented to person, oriented to place, oriented to time and patient oriented x3 Chest: Chest palpation & inspection: normal inspection of the chest Resp: Effort & Inspection: normal respiratory effort Auscultation: clear to auscultation bilaterally Percussion: percussion normal Cardio: Palpation: normal PMI Rate: regular rate Rhythm: regular rhythm Heart sounds: S1 normal heart sound present and S2 normal heart sound present GI: Inspection: other (Sp lap eddi with small incision fresh ) Neuro: General: oriented to person, oriented to place, oriented to time and patient oriented x3 Cranial nerves: Yes Equal, round and reactive pupils present and Yes Normal hearing present Cognition (Neuro): normal cognition Speech: normal speech Gait exam (Neuro): Normal gait present Motor exam (neuro): 5/5 motor strength present throughout Sensory Exam: normal sensation Extrem: Right lower extremity: no edema Objective Data Vital Signs Vital Signs: Vital Signs - 24 hr 09/09/20 14:00 09/09/20 20:24 09/10/20 05:39 Temperature 36.5 C 37.3 C 36.6 C Pulse Rate 106 H 83 78 Respiratory Rate 22 H 20 16 Blood Pressure 111/77 108/55 L 119/53 L Pulse Oximetry 100 94 95 Intake/Output Intake/Output: Intake & Output 09/07/20 09/08/20 09/09/20 09/10/20 23:59 23:59 23:59 23:59 Intake Total 1490 2440 3110 200 Output Total 181 761 7273 450 Balance 615 1500 1460 -250 Meds/Results Medications: Active Medications Generic Name Dose Route Start Last Admin Trade Name Freq PRN Reason Stop Dose Admin Acetaminophen 500 mg 09/08/20 11:27 Acetaminophen 500 Mg Tablet PO Q6H PRN Mild Pain (1-3) or Fever Hydrocodone Bitart/Acetaminophen 1 tab 09/08/20 11:27 09/09/20 20:45 Hydrocodone/Acetaminophen (*Crx) 5-325 Mg Tablet PO 1 tab Q4H PRN Administration Pain Rated 4-6 Hydrocodone Bitart/Acetaminophen 1 tab 09/08/20 11:27 Hydrocodone/Acetaminophen (*Crx) 7.5-325 Mg T
[2020-09-10] MEDS: HYDROcodone/acetaminophen (*CRX) 7.5-325 MG TABLET 1 TAB PO (08:49)
[2020-09-10] MEDS: PANTOPRAZOLE SODIUM IV 40 MG VIAL IV PUSH (08:50)
[2020-09-10] MEDS: POTASSIUM CHLORIDE 20 MEQ TABLET.ER PO ×2 (08:50→17:43)
[2020-09-10] MEDS: ENOXAPARIN 40 MG/0.4 ML SYRINGE SUB-Q (08:50)
--- NOTE | 2020-09-10 10:36 | PCNFU ---
Nutrition Follow-Up Complete: Inadequate oral intake related to nausea/vomiting as evidenced by NPO diet, reported poor intake prior to admission, and documented 5 pound weight loss x 1 month without trying. Goal: Patient to meet estimated nutritional needs. Patient is progressing towards goal. No new goal at this time. Pt current nutrition is a low fat diet. Last recorded weight is 88 kg. Recommend re-weighing patient prior to discharge. Bowel Motility: + BM 09/09/2020 Labs Reviewed: Alb 2.4, Na 134, Ca 6.4 Meds Noted: Lovenox, Synthroid, Antivert, Narcan, Kcl tablet, Protonix, Loperamide Hcl, [place] Additional Notes: Followed up with patient. Patient stated her appetite has been fluctuating greatly. Her meal intakes have been anywhere from 25%-85%. She tried Ensure Compact and did not like it. For breakfast this morning, 09/10/2020, she was able to eat a whole pancake, frosted flakes, and a banana which is a big improvement for her. Her nausea/vomiting has improved significantly. Would recommend supplementing patient with calcium due to diagnosis of hypocalcemia and calcium level of 6.4 on 09/10/2020. Follow up every 5 days.
[2020-09-10 14:00] VITALS: BP 111/66; PULSE 102; RESP 16; TEMP 36.4; O2SAT 97
--- NOTE | 2020-09-10 15:45 | PM.IMPN ---
Progress Note: A&P Assessment and Plan (1) Dysfunctional gallbladder: Code(s): K82.8 - Other specified diseases of gallbladder Status: Acute Assessment and Plan: Sp lap eddi 09/08/2020 doing well tolerating low fat diet surgery has signed off (2) Urinary tract infection: Onset Date: ~08/2020 Qualifiers: Encounter type: sequela Indwelling urinary catheter type: indwelling urethral catheter Urinary tract infection type: catheter-associated UTI Qualified Code(s): T83.511S - Infection and inflammatory reaction due to indwelling urethral catheter, sequela; N39.0 - Urinary tract infection, site not specified Code(s): N39.0 - Urinary tract infection, site not specified Status: Acute Assessment and Plan: Urine shows ESBL. pt is on iv zosyn day 3 continue for another day rpt UA/ UC today (3) Hypertension: Onset Date: Unknown Code(s): I10 - Essential (primary) hypertension Status: Chronic Assessment and Plan: Resolved (4) Hyperlipidemia: Onset Date: Unknown Code(s): E78.5 - Hyperlipidemia, unspecified Status: Chronic Assessment and Plan: I am holding her atorvastatin for now. (5) Acute hypokalemia: Onset Date: ~09/04/20 Code(s): E87.6 - Hypokalemia Status: Resolved Assessment and Plan: REsolved (6) Acute renal insufficiency: Code(s): N28.9 - Disorder of kidney and ureter, unspecified Status: Resolved Assessment and Plan: Hold diuretics as Bp is low Subjective Date/time seen: 09/10/20 15:45 Interval history: 5-year-old female patient who resides at [facility]. The patient was just discharged from here on 08/17/2020. Sp laparoscopic cholecystectomy. Urine culture shows ESBL. rpt UA/ UC today. dc ede cont theraphy here. Review of Systems Review of Systems: All systems reviewed & are unremarkable except as noted in HPI and below Exam Narrative: Exam Narrative: Const: General: cooperative Orientation/consciousness: oriented to person, oriented to place, oriented to time and patient oriented x3 Chest: Chest palpation & inspection: normal inspection of the chest Resp: Effort & Inspection: normal respiratory effort Auscultation: clear to auscultation bilaterally Percussion: percussion normal Cardio: Palpation: normal PMI Rate: regular rate Rhythm: regular rhythm Heart sounds: S1 normal heart sound present and S2 normal heart sound present GI: Inspection: other (Sp lap eddi with small incision fresh ) Neuro: General: oriented to person, oriented to place, oriented to time and patient oriented x3 Cranial nerves: Yes Equal, round and reactive pupils present and Yes Normal hearing present Cognition (Neuro): normal cognition Speech: normal speech Gait exam (Neuro): Normal gait present Motor exam (neuro): 5/5 motor strength present throughout Sensory Exam: normal sensation Extrem: Right lower extremity: no edema Objective Data Vital Signs Vital Signs: Vital Signs - 24 hr 09/09/20 20:24 09/10/20 05:39 09/10/20 14:00 Temperature 37.3 C 36.6 C 36.4 C L Pulse Rate 83 78 102 H Respiratory Rate 20 16 16 Blood Pressure 108/55 L 119/53 L 111/66 Pulse Oximetry 94 95 97 Intake/Output Intake/Output: Intake & Output 09/07/20 09/08/20 09/09/20 09/10/20 23:59 23:59 23:59 23:59 Intake Total 1490 2440 3110 1090 Output Total 862 690 4583 450 Balance 615 1500 1460 640 Meds/Results Medications: Active Medications Generic Name Dose Route Start Last Admin Trade Name Freq PRN Reason Stop Dose Admin Acetaminophen 500 mg 09/08/20 11:27 Acetaminophen 500 Mg Tablet PO Q6H PRN Mild Pain (1-3) or Fever Hydrocodone Bitart/Acetaminophen 1 tab 09/08/20 11:27 09/09/20 20:45 Hydrocodone/Acetaminophen (*Crx) 5-325 Mg Tablet PO 1 tab Q4H PRN Administration Pain Rated 4-6 Hydrocodone Bitart/Acetaminophen 1 tab 09/08/20 11:27
[2020-09-10] MEDS: LOPERAMIDE HCL 2 MG CAPSULE BY MOUTH (20:19)
[2020-09-10] MEDS: KCL 30 MEQ/0.9% SOD CHL 1,000 ML 50 ML IV CONT (21:40)
[2020-09-10 21:51] VITALS: BP 122/50; PULSE 86; RESP 20; TEMP 36.7; O2SAT 96
[2020-09-11] MEDS: KCL 30 MEQ/0.9% SOD CHL 1,000 ML 50 ML IV CONT (00:59)
[2020-09-11 05:55] VITALS: BP 121/51; PULSE 90; RESP 20; TEMP 36.4; O2SAT 97
[2020-09-11] MEDS: LEVOTHYROXINE SODIUM 100 MCG TABLET 200 MCG PO (05:58)
[2020-09-11 06:50] LABS: Mean Platelet Volume 10.1 fl (7.4-10.4); Platelet Count Result 186 k/mm3 (150-375)
[2020-09-11] MEDS: PANTOPRAZOLE SODIUM IV 40 MG VIAL IV PUSH (10:04)
[2020-09-11] MEDS: ENOXAPARIN 40 MG/0.4 ML SYRINGE SUB-Q (10:04)
[2020-09-11] MEDS: POTASSIUM CHLORIDE 20 MEQ TABLET.ER PO ×2 (10:04→18:31)
[2020-09-11 14:00] VITALS: BP 123/64; PULSE 88; RESP 18; TEMP 36.7; O2SAT 98
--- NOTE | 2020-09-11 14:54 | PM.IMPN ---
Progress Note: A&P Assessment and Plan (1) Dysfunctional gallbladder: Code(s): K82.8 - Other specified diseases of gallbladder Status: Acute Assessment and Plan: Sp lap eddi 09/08/2020 doing well tolerating low fat diet surgery has signed off pt continues to complain of diarrhea, fobt is negative. questran started (2) Urinary tract infection: Onset Date: ~08/2020 Qualifiers: Encounter type: sequela Indwelling urinary catheter type: indwelling urethral catheter Urinary tract infection type: catheter-associated UTI Qualified Code(s): T83.511S - Infection and inflammatory reaction due to indwelling urethral catheter, sequela; N39.0 - Urinary tract infection, site not specified Code(s): N39.0 - Urinary tract infection, site not specified Status: Acute Assessment and Plan: Urine shows ESBL. pt is on iv zosyn day 4 continue for another day rpt UA/ UC awaiting full report (3) Hypertension: Onset Date: Unknown Code(s): I10 - Essential (primary) hypertension Status: Chronic Assessment and Plan: Resolved (4) Hyperlipidemia: Onset Date: Unknown Code(s): E78.5 - Hyperlipidemia, unspecified Status: Chronic Assessment and Plan: I am holding her atorvastatin for now. (5) Acute hypokalemia: Onset Date: ~09/04/20 Code(s): E87.6 - Hypokalemia Status: Resolved Assessment and Plan: REsolved (6) Acute renal insufficiency: Code(s): N28.9 - Disorder of kidney and ureter, unspecified Status: Resolved Subjective Date/time seen: 09/11/20 14:54 Interval history: 5-year-old female patient who resides at [facility]. The patient was just discharged from here on 08/17/2020. Sp laparoscopic cholecystectomy. Urine culture shows ESBL. rpt UA/ UC awaiting full report. dc ede cont theraphy here. Review of Systems Review of Systems: All systems reviewed & are unremarkable except as noted in HPI and below Exam Narrative: Exam Narrative: Const: General: cooperative Orientation/consciousness: oriented to person, oriented to place, oriented to time and patient oriented x3 Chest: Chest palpation & inspection: normal inspection of the chest Resp: Effort & Inspection: normal respiratory effort Auscultation: clear to auscultation bilaterally Percussion: percussion normal Cardio: Palpation: normal PMI Rate: regular rate Rhythm: regular rhythm Heart sounds: S1 normal heart sound present and S2 normal heart sound present GI: Inspection: other (Sp lap eddi with small incision fresh ) Neuro: General: oriented to person, oriented to place, oriented to time and patient oriented x3 Cranial nerves: Yes Equal, round and reactive pupils present and Yes Normal hearing present Cognition (Neuro): normal cognition Speech: normal speech Gait exam (Neuro): Normal gait present Motor exam (neuro): 5/5 motor strength present throughout Sensory Exam: normal sensation Extrem: Right lower extremity: no edema Objective Data Vital Signs Vital Signs: Vital Signs - 24 hr 09/10/20 21:51 09/11/20 05:55 09/11/20 14:00 Temperature 36.7 C 36.4 C 36.7 C Pulse Rate 86 90 88 Respiratory Rate 20 20 18 Blood Pressure 122/50 L 121/51 L 123/64 Pulse Oximetry 96 97 98 Intake/Output Intake/Output: Intake & Output 09/08/20 09/09/20 09/10/20 09/11/20 23:59 23:59 23:59 23:59 Intake Total 2440 3110 2970 1830 Output Total 940 1650 550 Balance 1500 1460 2420 1830 Meds/Results Medications: Active Medications Generic Name Dose Route Start Last Admin Trade Name Freq PRN Reason Stop Dose Admin Acetaminophen 500 mg 09/08/20 11:27 Acetaminophen 500 Mg Tablet PO Q6H PRN Mild Pain (1-3) or Fever Hydrocodone Bitart/Acetaminophen 1 tab 09/08/20 11:27 09/09/20 20:45 Hydrocodone/Acetaminophen (*Crx) 5-325 Mg Tablet PO 1 tab Q4H PRN Administration Pain Rated 4-6 Hydrocodone B
--- NOTE | 2020-09-11 16:35 | PC.NURSE ---
Pt's facility ([facility]) called for an update. Tried to return call twice and was left on hold both times.
[2020-09-11] MEDS: CHOLESTYRAMINE (W/ SUGAR) 4 GM POWD.PACK PO (18:29)
[2020-09-11] MEDS: HYDROcodone/acetaminophen (*CRX) 5-325 MG TABLET 1 TAB PO (21:09)
[2020-09-12] MEDS: KCL 30 MEQ/0.9% SOD CHL 1,000 ML 50 ML IV CONT ×2 (02:26→23:57)
[2020-09-12] MEDS: LEVOTHYROXINE SODIUM 100 MCG TABLET 200 MCG PO (05:59)
[2020-09-12 06:49] LABS: Anion Gap 5 mmol/L (8-16); Blood Urea Nitrogen 4 mg/dL (7-17); Calcium 6.5 mg/dL (8.4-10.2); Carbon Dioxide 22 mmol/L (22-30); Chloride 112 mmol/L (98-107); Estimated CRCL calculation 56 ml/min; Estimated Glomerular Filt Rate > 60; Glucose 78 mg/dL (65-105); Magnesium 0.8 mg/dL (1.6-2.3); Potassium 3.9 mmol/L (3.4-5.0); Sodium 139 mmol/L (137-145)
[2020-09-12] MEDS: MAGNESIUM SULF 1 GM/D5W 100 ML 1 GM/100 ML BAG IVPB (08:22)
[2020-09-12] MEDS: POTASSIUM CHLORIDE 20 MEQ TABLET.ER PO ×2 (08:27→17:24)
[2020-09-12] MEDS: ENOXAPARIN 40 MG/0.4 ML SYRINGE SUB-Q (08:27)
[2020-09-12] MEDS: PANTOPRAZOLE SODIUM IV 40 MG VIAL IV PUSH (08:28)
[2020-09-12] MEDS: HYDROcodone/acetaminophen (*CRX) 7.5-325 MG TABLET 1 TAB PO (11:29)
[2020-09-12] MEDS: CHOLESTYRAMINE (W/ SUGAR) 4 GM POWD.PACK PO ×2 (12:06→17:24)
[2020-09-12] MEDS: MAGNESIUM OXIDE 400 MG TABLET PO (12:07)
[2020-09-12 16:05] VITALS: BP 120/72
--- NOTE | 2020-09-12 17:03 | PM.IMPN ---
Progress Note: A&P Assessment and Plan (1) Dysfunctional gallbladder: Code(s): K82.8 - Other specified diseases of gallbladder Status: Acute Assessment and Plan: Sp lap eddi 09/08/2020 doing well tolerating low fat diet surgery has signed off pt continues to complain of diarrhea, fobt is negative. questran started (2) Urinary tract infection: Onset Date: ~08/2020 Qualifiers: Encounter type: sequela Indwelling urinary catheter type: indwelling urethral catheter Urinary tract infection type: catheter-associated UTI Qualified Code(s): T83.511S - Infection and inflammatory reaction due to indwelling urethral catheter, sequela; N39.0 - Urinary tract infection, site not specified Code(s): N39.0 - Urinary tract infection, site not specified Status: Acute Assessment and Plan: Zosyn day 5 09/04 culture showed Klebsiella pneumoniae ESBL Has extermination inspector Zhu, likely colonized May benefit from prophylaxis. Needs to f/u with urology (Dr. Dalton) to review extermination inspector options. (3) Hypertension: Onset Date: Unknown Qualifiers: Hypertension type: unspecified Qualified Code(s): I10 - Essential (primary) hypertension Code(s): I10 - Essential (primary) hypertension Status: Chronic Assessment and Plan: Controlled (4) Acute hypokalemia: Onset Date: ~09/04/20 Code(s): E87.6 - Hypokalemia Status: Resolved Assessment and Plan: REsolved (5) Acute renal insufficiency: Code(s): N28.9 - Disorder of kidney and ureter, unspecified Status: Resolved Assessment and Plan: Resolved (6) Hyperlipidemia: Onset Date: Unknown Qualifiers: Hyperlipidemia type: unspecified Qualified Code(s): E78.5 - Hyperlipidemia, unspecified Code(s): E78.5 - Hyperlipidemia, unspecified Status: Chronic Assessment and Plan: I am holding her atorvastatin for now. Subjective Date/time seen: 09/12/20 17:03 Interval history: 85-year-old female patient who resides at [facility]. The patient was just discharged from here on 08/17/2020. Sp laparoscopic cholecystectomy. Chronic urine incont. Sees Dr. Dalton. intermission coordinator Zhu. 09/12: Tolerated diet. One loose stool. Mild incisional discomfort. Leg pain with use, more on left. More stiffness. Chronic. Worse in the past 3 mo. Unable to transfer herself as she did 3 mo ago. Wants ongoing PT at [facility]. Review of Systems Review of Systems: All systems reviewed & are unremarkable except as noted in HPI and below Exam Narrative: Exam Narrative: HEENT: PERRL, sclerae nonicteric, pharyngeal mucosa pink and intact NECK: No JVD CHEST: Clear to auscultation. Normal effort. HEART: NL S1/S2, regular, no murmur ABDOMEN: BS+, soft, MILD TENDERNESS AROUND INCISIONS, no mass, no bruits EXTREMITIES: No cyanosis, edema, or clubbing NEUROLOGIC: CN intact and symmetric to inspection. MUSCULOSKELETAL: Tone and strength symmetric. PSYCH: Alert. Oriented to person, place, and time. Objective Data Vital Signs Vital Signs: Vital Signs - 24 hr 09/12/20 16:05 Blood Pressure 120/72 Intake/Output Intake/Output: Intake & Output 09/09/20 09/10/20 09/11/20 09/12/20 23:59 23:59 23:59 23:59 Intake Total 3110 2970 3770 1230 Output Total 1650 550 400 400 Balance 1460 2420 3370 830 Meds/Results Medications: Active Medications Generic Name Dose Route Start Last Admin Trade Name Freq PRN Reason Stop Dose Admin Acetaminophen 500 mg 09/08/20 11:27 Acetaminophen 500 Mg Tablet PO Q6H PRN Mild Pain (1-3) or Fever Hydrocodone Bitart/Acetaminophen 1 tab 09/08/20 11:27 09/11/20 21:09 Hydrocodone/Acetaminophen (*Crx) 5-325 Mg Tablet PO 1 tab Q4H PRN Administration Pain Rated 4-6 Hydrocodone Bitart/Acetaminophen 1 tab 09/08/20 11:27 09/12/20 11:29 Hydrocodone/Acetaminophen (*Crx) 7.5-325 Mg Tablet PO 1 tab Q6
[2020-09-12 22:00] VITALS: BP 136/56; PULSE 80; RESP 18; TEMP 37.3; O2SAT 96
[2020-09-13] MEDS: HYDROcodone/acetaminophen (*CRX) 7.5-325 MG TABLET 1 TAB PO ×2 (03:05→18:07)
[2020-09-13 06:00] VITALS: BP 139/56; PULSE 86; RESP 18; TEMP 36.4; O2SAT 97
[2020-09-13] MEDS: LEVOTHYROXINE SODIUM 100 MCG TABLET 200 MCG PO (06:06)
[2020-09-13 06:28] LABS: Hematocrit 34.2 % (37.0-47.0); Hemoglobin 10.6 g/dL (12.0-15.0); Mean Corpuscular Hemoglobin 31.2 pg (26-34); Mean Corpuscular Volume 100.6 fl (80-100); Mean Platelet Volume 9.4 fl (7.4-10.4); Platelet Count Result 193 k/mm3 (150-375); Red Cell Distribution Width 13.7 % (11.5-14.5); White Blood Count 7.8 K/mm3 (4.5-10.0)
[2020-09-13 06:50] LABS: Alanine Aminotransferase 11 U/L (4-35); Albumin Level 2.1 g/dL (3.5-5.1); Alkaline Phosphatase 105 U/L (38-126); Anion Gap 5 mmol/L (8-16); Aspartate Amino Transferase 24 U/L (14-36); Bilirubin,Total 0.2 mg/dL (0.2-1.3); Blood Urea Nitrogen 4 mg/dL (7-17); Calcium 6.6 mg/dL (8.4-10.2); Carbon Dioxide 20 mmol/L (22-30); Chloride 113 mmol/L (98-107); Estimated CRCL calculation 56 ml/min; Estimated Glomerular Filt Rate > 60; Glucose 79 mg/dL (65-105); Potassium 3.9 mmol/L (3.4-5.0); Sodium 138 mmol/L (137-145)
[2020-09-13] MEDS: MAGNESIUM SULF 2 GM/WATER 50ML 2 GM/50 ML BAG IVPB (08:37)
[2020-09-13] MEDS: MAGNESIUM OXIDE 400 MG TABLET PO (08:42)
[2020-09-13] MEDS: POTASSIUM CHLORIDE 20 MEQ TABLET.ER PO ×2 (08:42→18:02)
[2020-09-13] MEDS: PANTOPRAZOLE SODIUM IV 40 MG VIAL IV PUSH (08:42)
[2020-09-13] MEDS: ENOXAPARIN 40 MG/0.4 ML SYRINGE SUB-Q (08:42)
[2020-09-13] MEDS: ACETAMINOPHEN 500 MG TABLET PO (08:50)
[2020-09-13] MEDS: CHOLESTYRAMINE (W/ SUGAR) 4 GM POWD.PACK PO ×2 (09:45→18:03)
[2020-09-13] MEDS: HYDROcodone/acetaminophen (*CRX) 5-325 MG TABLET 1 TAB PO (11:21)
[2020-09-13 14:00] VITALS: BP 111/65; PULSE 72; RESP 20; TEMP 36.4; O2SAT 96
[2020-09-13 14:01] LABS: Anion Gap 9 mmol/L (8-16); Blood Urea Nitrogen 5 mg/dL (7-17); Calcium 7.4 mg/dL (8.4-10.2); Carbon Dioxide 18 mmol/L (22-30); Chloride 111 mmol/L (98-107); Estimated CRCL calculation 56 ml/min; Estimated Glomerular Filt Rate > 60; Glucose 141 mg/dL (65-105); Magnesium 1.6 mg/dL (1.6-2.3); Phosphorus 2.2 mg/dL (2.5-4.5); Potassium 4.3 mmol/L (3.4-5.0); Sodium 138 mmol/L (137-145)
[2020-09-13 14:15] LABS: Iron 45 ug/dL (37-170)
[2020-09-13 14:27] LABS: Percent Iron Saturation 23 % (20-50)
[2020-09-13 15:07] LABS: Folic Acid 9.4 ng/mL (2.76->20)
[2020-09-13 16:02] LABS: Parathyroid Intact 163.9 pg/mL (7.5-53.5)
[2020-09-13 16:06] LABS: Vitamin D 25 Hydroxy 52.9 ng/mL
--- NOTE | 2020-09-13 16:09 | PM.DS ---
DS: Admitting Diagnosis Admitting Diagnosis Admitting Diagnosis: Abdominal pain due to dysfunctional gallbladder DS: Discharge Diagnosis Discharge Diagnosis (1) Dysfunctional gallbladder: Code(s): K82.8 - Other specified diseases of gallbladder Status: Acute Assessment and Plan: Sp agnes eddi 09/08/2020 doing well tolerating low fat diet surgery has signed off pt continues to complain of diarrhea, fobt is negative. questran started (2) Urinary tract infection: Onset Date: ~08/2020 Qualifiers: Encounter type: sequela Indwelling urinary catheter type: indwelling urethral catheter Urinary tract infection type: catheter-associated UTI Qualified Code(s): T83.511S - Infection and inflammatory reaction due to indwelling urethral catheter, sequela; N39.0 - Urinary tract infection, site not specified Code(s): N39.0 - Urinary tract infection, site not specified Status: Acute Assessment and Plan: Zosyn day 7 (STARTED AM OF 09/07) 09/04 culture showed Klebsiella pneumoniae ESBL Has correction Zhu, likely colonized May benefit from prophylaxis so will add methenamine hippurate Needs to f/u with urology (Dr. Dalton) to review manager intermediate options. (3) Hypertension: Onset Date: Unknown Qualifiers: Hypertension type: unspecified Qualified Code(s): I10 - Essential (primary) hypertension Code(s): I10 - Essential (primary) hypertension Status: Chronic Assessment and Plan: Controlled (4) Acute hypokalemia: Onset Date: ~09/04/20 Code(s): E87.6 - Hypokalemia Status: Resolved Assessment and Plan: Resolved (along with hypomagnesemia) (5) Acute renal insufficiency: Code(s): N28.9 - Disorder of kidney and ureter, unspecified Status: Resolved Assessment and Plan: Resolved (6) Hyperlipidemia: Onset Date: Unknown Qualifiers: Hyperlipidemia type: unspecified Qualified Code(s): E78.5 - Hyperlipidemia, unspecified Code(s): E78.5 - Hyperlipidemia, unspecified Status: Chronic Assessment and Plan: Resume home meds (7) Dermatitis: Code(s): L30.9 - Dermatitis, unspecified Status: Acute Assessment and Plan: Erythema of skin folds lower abdomen and umbilicus. Appears to be paritally treated yeast. Continue topical antifungal and add topical steroid for comfort. DS: Summary Hospital Course Reason for hospitalization: Abdominal pain Hospital Course: Patient was admitted underwent laparoscopic cholecystectomy on September 08. Surgery was uneventful. She was found to have ESBL E coli catheter associated urinary tract infection and was treated with 7 days IV Zosyn for that. By day of discharge she was tolerating her diet. She had chronic pain and deconditioning issues that interfered with ambulation. She resides at [facility]. By day of discharge she was tolerating her diet. She was at her baseline mobility. Pain control was adequate. Electrolytes were corrected with IV and oral replacement. Time Spent with Patient Time attestation: Total time spent providing and/or coordinating discharge services: Time spent: Greater than 30 minutes Exam Narrative: Exam Narrative: HEENT: PERRL, sclerae nonicteric, pharyngeal mucosa pink and intact NECK: No JVD CHEST: Clear to auscultation. Normal effort. HEART: NL S1/S2, regular, no murmur ABDOMEN: BS+, soft, MILD TENDERNESS AROUND INCISIONS, no mass, no bruits EXTREMITIES: No cyanosis, edema, or clubbing NEUROLOGIC: CN intact and symmetric to inspection. MUSCULOSKELETAL: Tone and strength symmetric. PSYCH: Alert. Oriented to person, place, and time. DS: Data Data Completed and Pending Completed studies during hospitalization: Pending at discharge 09/08/20 08:19 Surgical [PTH] Routine Labs on day of discharge: Labs from last 24 hours 09/13/20 09/13/20 09/13/20 13:33 13:33 06:14 WBC RBC Hgb
== END 2020-09-13 20:48 | DRG 989 ==
LOC: ANHED 11:03 → ANH3MEDSUR 13:01
PROVIDERS: Emergency Medicine; Nurse Practitioner; Surgery; Admitting Provider Family Medicine; Emergency Provider General Practice; PCP Family Medicine; Visit Provider Internal Medicine
PROC: 0FT44ZZ Resection of Gallbladder, Percutaneous Endoscopic Approach (ICD-10-PCS; CPT 47562; principal; 2020-09-07 14:00)
DX: T83.511A Infection and inflammatory reaction due to indwelling urethral catheter, initial encounter (principal); N39.0 Urinary tract infection, site not specified; B96.1 Klebsiella pneumoniae [K. pneumoniae] as the cause of diseases classified elsewhere; K81.1 Chronic cholecystitis; K82.8 Other specified diseases of gallbladder; I10 Essential (primary) hypertension; N28.9 Disorder of kidney and ureter, unspecified; E78.5 Hyperlipidemia, unspecified; R32 Unspecified urinary incontinence; E03.9 Hypothyroidism, unspecified; E87.6 Hypokalemia; E83.51 Hypocalcemia; Z85.3 Personal history of malignant neoplasm of breast; Z98.42 Cataract extraction status, left eye; Z98.41 Cataract extraction status, right eye; Z96.612 Presence of left artificial shoulder joint; Z96.653 Presence of artificial knee joint, bilateral; E66.9 Obesity, unspecified; Z68.33 Body mass index [BMI] 33.0-33.9, adult
CPT/HCPCS: 36415; 76705; 80048; 80053; 80076; 81001; 82274; 82306; 82607; 82746; 82948; 83540; 83550; 83690; 83735; 83970; 84100; 84134; 84443; 85025; 85027; 85049; 86850; 86900; 86901; 87040; 87077; 87086; 87088; 87186; 88304; 93005; 96361; 96365; 96375; 97110; 97162; 97165; 97530; 97535; 99285; A9270; C9113; J0330; J0610; J0696; J1650; J1885; J2370; J2405; J2543; J2704; J2710; J2765; J3010; J3475; J3480; J7030; J7120; Q9966

== ENCOUNTER 2022-01-05 14:11 | Inpatient (IN) | payer OTHER, SELFPAY ==
[2022-01-05] VITALS (12 sets, daily range): BP systolic 80–95; BP diastolic 40–68; PULSE 66–76; RESP 15–24; TEMP 36.3–36.8; O2SAT 96–97; BMI 31.4; BMI 30.2
--- NOTE | ~2022-01-05 | XR_ITS ---
EXAMINATION: XR chest 1V portable Exam Date/Time: 01/05/2022 14:30 CDT HISTORY: cough, WEAKNESS Comparison: None available. RESULT: Exam limited by rotation. Lines, tubes, and devices: Left shoulder arthroplasty. Left axillary and cholecystectomy clips. Lungs and pleura: Rounded opacity projecting of the left hilum may be artifact from rotation, consol idation or a nodule. Diffuse reticular opacities, with some degree of sparing in the right lower lung . Bilateral basilar honeycombing. Bilateral angle blunting may represent small effusions or scarring. Cardiomediastinal silhouette: Mostly obscured. Other: No acute osseous or upper abdominal finding. IMPRESSION: Pulmonary opacities likely represent pulmonary edema, overlying chronic interstitial lung change. Aty pical infection and active interstitial lung disease could appear similar. Otherwise limited examinat ion. Recommend PA and lateral views the chest if the patient is physically capable, otherwise repeat the portable view with better positioning (no rotation). Reviewed, dictated and finalized at location K. IMPRESSION: Pulmonary opacities likely represent pulmonary edema, overlying chronic interst itial lung change. Atypical infection and active interstitial lung disease coul d appear similar. Otherwise limited examination. Recommend PA and lateral views the chest if the patient is physically capable, otherwise repeat the portable view with better positioning (no rotation).
--- NOTE | ~2022-01-05 | CT_ITS ---
EXAMINATION: CTA chest PE protocol DATE: 01/05/2022 16:20 CDT INDICATION: Pulmonary embolism. TECHNIQUE: Computed tomographic angiography (CTA) of the chest was performed with 100 mL Omnipaque-35 0 intravenous contrast. The dose-length product was 628.63 mGy-cm. Maximum intensity projection 3D-re constructions of the aorta and other arteries were constructed by the technologist on a separate work station. COMPARISON: None. FINDINGS: Study is technically adequate without evidence for pulmonary embolism. Cardiomegaly. Small pleural effusions. Small hiatal hernia. No thoracic lymphadenopathy. There is irregular nodular soft tissue in the left lower chest wall with associated calcifications. There is extensive patchy groundg lass opacities and both lungs, left greater than right. There is traction bronchiectasis in the left lower lobe. No pneumothorax. No endobronchial lesions. Severe thoracic spondylosis. Accentuated kypho sis. Superior endplate compression fracture of L1, likely chronic. There is levoscoliosis. IMPRESSION: 1. No evidence for pulmonary embolism. 2: Enlarged pulmonary arteries consistent with pulmonary hypertension. 3: Extensive patchy bilateral groundglass opacities throughout both lungs which may represent pneumon ia or edema. 4: Small pleural effusions. 5: Irregular shaped soft tissue with areas of cystic change in the left lower anterior chest wall. Th is may be posttraumatic change, although infection and malignancy should also be considered in the ap propriate clinical setting. Reviewed, dictated and finalized at location B. IMPRESSION: 1. No evidence for pulmonary embolism. 2: Enlarged pulmonary arteries consistent with pulmonary hypertension. 3: Extensive patchy bilateral groundglass opacities throughout both lungs which may represent pneumonia or edema. 4: Small pleural effusions. 5: Irregular shaped soft tissue with areas of cystic change in the left lower a nterior chest wall. This may be posttraumatic change, although infection and ma lignancy should also be considered in the appropriate clinical setting.
--- NOTE | 2022-01-05 14:29 | ECG_ITS ---
Measurements Intervals [place] Rate: 75 P: 41 WV: 176 QRS: -35 QRSD: 144 T: 137 QT: 420 QTc: 470 Interpretive Statements SINUS RHYTHM BASELINE ARTIFACT PRESENT LEFT BUNDLE BRANCH BLOCK [120+ ms QRS DURATION, 80+ ms Q/S IN V1/V2, 85+ ms R IN I/aVL/V5/V6] COMPARED TO ECG 09/08/2020 10:51:19 LEFT BUNDLE-BRANCH BLOCK NOW PRESENT Electronically Signed On 01-06-2022 17:04:12 CDT by Aarti Harden M.D.
[2022-01-05 14:59] LABS: Basophils Absolute Auto 0.1 K/mm3 (0.0-0.1); Basophils Percent Auto 0.8 % (0.2-1.2); Eosinophils Absolute Auto 0.2 K/mm3 (0-0.3); Eosinophils Percent Auto 1.8 % (0-4.4); Hematocrit 38.9 % (37.0-47.0); Hemoglobin 12.4 g/dL (12.0-15.0); Immature Granulocyte Absolute 0.64 K/mm3 (0.00-0.031); Immature Granulocyte Percent A 4.9 % (0-0.5); Lymphocytes Percent Auto 10.7 % (18.3-44.2); Mean Corpuscular HGB Conc 31.9 g/dl (32-36); Mean Corpuscular Hemoglobin 34.4 pg (26-34); Mean Corpuscular Volume 108.1 fl (80-100); Mean Platelet Volume 10.2 fl (7.4-10.4); Monocytes Absolute Auto 0.8 K/mm3 (0.1-0.6); Monocytes Percent Auto 5.9 % (2.6-8.5); Neutrophils Absolute Auto 9.9 K/mm3 (1.3-6.7); Neutrophils Percent Auto 75.9 % (45.5-73.1); Nucleated Red Blood Cells Perc 0.2 % (0.0-0.2); Platelet Count Result 415 k/mm3 (150-375); Red Cell Distribution Width 17.9 % (11.5-14.5); White Blood Count 13.1 K/mm3 (4.5-10.0)
[2022-01-05 15:06] LABS: Alanine Aminotransferase 24 U/L (6-35); Albumin Level 1.9 g/dL (3.5-5.1); Alkaline Phosphatase 270 U/L (38-126); Anion Gap 11 mmol/L (8-16); Aspartate Amino Transferase 45 U/L (14-36); Bilirubin,Total 0.6 mg/dL (0.2-1.3); Blood Urea Nitrogen 37 mg/dL (7-17); Calcium 7.4 mg/dL (8.4-10.2); Carbon Dioxide 23 mmol/L (22-30); Chloride 104 mmol/L (98-107); Estimated Glomerular Filt Rate 47; Glucose 78 mg/dL (65-110); Potassium 3.8 mmol/L (3.4-5.0); Sodium 138 mmol/L (137-145)
--- NOTE | 2022-01-05 15:17 | ED.GENADULT ---
HPI - General Adult General Chief complaint: Unspecified Stated complaint: swelling Time Seen by Provider: 01/05/22 14:18 Source: RN notes reviewed History of Present Illness HPI narrative: Patient presents emergency department from home swelling. Patient states swelling is been progressively worsening over the past 3 days she has swelling of the arms and legs states has been associate with mild feeling of shortness of breath she states she does have a history of heart failure and is on Lasix which she has been taking she denies any fevers or chills chest pain abdominal pain nausea vomiting or any other symptom the patient is not normally on oxygen but over the past 2 days has been on 3 L nasal cannula at the facility Related Data Home Medications Medication Instructions Recorded Confirmed aspirin 81 mg tablet 81 mg PO DAILY 08/11/20 01/05/22 atorvastatin 20 mg tablet 20 mg PO DAILY 08/11/20 01/05/22 celecoxib 200 mg capsule 200 mg PO DAILY 08/11/20 01/05/22 furosemide 40 mg tablet 40 mg PO DAILY 08/11/20 01/05/22 levothyroxine 200 mcg tablet 200 mcg PO DAILY 08/11/20 01/05/22 loratadine 10 mg tablet 10 mg PO DAILY PRN Allergy Symptoms 08/11/20 01/05/22 tramadol 50 mg tablet 50 mg PO Q4H PRN Severe Pain 08/11/20 01/05/22 (Scale Score 7-10) cholecalciferol (vitamin D3) 125 125 mcg PO DAILY 09/03/20 09/28/20 mcg (5,000 unit) capsule metoprolol succinate 50 mg 50 mg PO DAILY 09/03/20 01/05/22 tablet,extended release 24 hr loperamide 2 mg tablet See Rx Instructions .Route 09/04/20 01/05/22 .COMPLEX PRN Diarrhea acetaminophen 500 mg tablet 500 mg PO Q4H PRN Pain (Scale 01/05/22 01/05/22 Score 1-3) arginine-vitamin C-vitamin E oral 4.5 g PO DAILY 01/05/22 01/05/22 4.5 gram-156 mg/9.2 gram powder pkt (Arginaid) calcium carbonate 200 mg calcium 400 mg PO AC 01/05/22 01/05/22 (500 mg) chewable tablet (Antacid (calcium carbonate)) cholecalciferol (vitamin D3) 125 5,000 unit PO DAILY 01/05/22 01/05/22 mcg (5,000 unit) tablet (Vitamin D3) collagenase clostridium histo. 250 1 applic topical DAILY 01/05/22 01/05/22 unit/gram topical ointment (Santyl) doxycycline hyclate 100 mg capsule 100 mg PO BID 01/05/22 01/05/22 fluticasone propionate 50 2 spray intranasal DAILY PRN 01/05/22 01/05/22 mcg/actuation nasal Allergy Symptoms spray,suspension lanolin alcohols-mineral 1 applic topical BID 01/05/22 01/05/22 oil-w.petrolatum-ceresin topical cream (Eucerin topical cream) meclizine 25 mg tablet 25 mg PO DAILY 01/05/22 01/05/22 meclizine 25 mg tablet 25 mg PO PRN PRN Dizziness 01/05/22 01/05/22 methenamine hippurate 1 gram tablet 1 g PO BID 01/05/22 01/05/22 nystatin 100,000 unit/gram topical 1 applic topical TID 01/05/22 01/05/22 cream omeprazole 20 mg capsule,delayed 20 mg PO DAILY 01/05/22 01/05/22 release ondansetron HCl 4 mg tablet 4 - 8 mg PO Q4H PRN Nausea 01/05/22 01/05/22 polyethylene glycol 3350 17 gram 17 g PO DAILY PRN Constipation 01/05/22 01/05/22 oral powder packet (Miralax) spironolactone 25 mg tablet 25 mg PO DAILY 01/05/22 01/05/22 Allergies Allergy/AdvReac Type Severity Reaction Status Date / Time adhesive tape Allergy Mild Rash Verified 03/02/21 10:47 morphine Allergy Mild Rash Verified 03/02/21 10:47 Review of Systems Review of Systems: Gen.: Denies fevers or chills ENT: Denies congestion Respiratory: reports shortness of breath CV: Denies chest pain or palpitations , reports edema GI: Denies abdominal pain nausea, emesis or diarrhea Musculoskeletal: Denies back pain or muscle pain Neuro: Denies numbness, tingling, weakness or focal weakness Skin: Denies rash Except as documented, all other systems reviewed and negative PMFSH Past Medical History Medical History Biliary sludge (~08/2020) Common bile duct dilatation Diabetes History of breast cancer Lumpectomy Hyperlipidemia (Unknown) Hypertension (Unknown)
[2022-01-05 15:18] LABS: NT Pro B Type Natriuretic Pept 4450 pg/mL (5-100); Troponin I < 0.012 ng/mL (0.000-0.034)
[2022-01-05 15:33] LABS: Platelet Estimate Increased (Adequate)
[2022-01-05 15:37] LABS: Anisocytosis 2+ (NORMAL); Hypochromasia 1+ (NORMAL)
[2022-01-05] MEDS: SODIUM CHLORIDE 0.9% IV 1,000 ML 999 ML IV CONT ×2 (16:14→17:17)
[2022-01-05 16:49] LABS: Lactic Acid Reflex 2.3 mmol/L (0.7-2.0)
[2022-01-05 17:13] LABS: INR 1.7; Prothrombin Time 19.6 Seconds (11.1-14.7)
[2022-01-05 17:14] LABS: Appearance Urine Clear (Clear); Bilirubin Urine Negative (Negative); Blood Urine Trace-lysed (Negative); Color Urine Yellow (Yellow); Glucose Urine UA Negative (Negative); Ketones Urine Negative (Negative); Leukocyte Esterase Ur 1+ LEU/UL (Negative); Nitrate Urine Negative (Negative); Protein Urine Negative (Negative); Specific Grav Ur <= 1.005 (1.001-1.035); Urobilinogen Urine 0.2 mg/dL (<2.0)
[2022-01-05 17:14] LABS: Partial Thromboplastin Time 36.6 SECONDS (22.3-36.8)
[2022-01-05 17:31] LABS: Mucus Urine Rare /lpf; RBC Urine 0-2 /hpf (0-2)
[2022-01-05 17:33] LABS: Add Urine Microscopic? YES
[2022-01-05 17:41] LABS: SARS-CoV-2 RNA PCR Negative
[2022-01-05 19:38] LABS: Reflex Lactic Acid Yes or No Add Lactic
--- NOTE | 2022-01-05 20:02 | ADMGEN ---
This patient, Isabel Monzon, was admitted to Medical Room 261-01. Patient/family oriented to hospital policies and general routines including ID bracelet, bed and alarms, visiting hours, pain management, procedures, bathroom and other care routines, personal items, smoking policy, room service/diet, and visiting hours. Information on how to activate the Rapid Response Team has been discussed. Patient/Family are encouraged to report perceived risks to care and to ask questions if they do not understand what they are told or what they should do.
[2022-01-05] MEDS: SODIUM CHLORIDE 0.9% IV 250 ML IV CONT (21:27)
--- NOTE | 2022-01-05 23:10 | PM.IMHP ---
H&P: HPI History of Present Illness Date/Time: 01/05/22 23:10 Chief Complaint: swelling Narrative: this is a 86 year old female patient who came to the emergency room due to swelling all over. The patient's swelling has gotten worse over the last 3 days to her arms and her feet. She is also feeling very short of breath. She does have a history of heart failure and is on Lasix daily. She denies any fever chills. No nausea vomiting or diarrhea. The patient resides at [facility] and was placed on oxygen at 3 L over the last couple days by her primary care doctor. Her white count was noted to be 13.1. Patient's creatinine is 1.1. Estimated GFR is 47 when it is typically greater than 60. Her lactic was noted to be 2.3. Calcium 7.4. BNP 4450. Her albumin is 1.9. The patient was hypotensive she was given IV bolus and it did not help with her blood pressure. I did order her some albumin. Her arms are weeping. Chest x-ray was read as the followingPulmonary opacities likely represent pulmonary edema, overlying chronic interstitial lung change. Atypical infection and active interstitial lung disease could appear similar. Otherwise limited examination. Recommend PA and lateral views the chest if the patient is physically capable, otherwise repeat the portable view with better positioning (no rotation). chest CTA was read as the following 1. No evidence for pulmonary embolism. 2: Enlarged pulmonary arteries consistent with pulmonary hypertension. 3: Extensive patchy bilateral groundglass opacities throughout both lungs which may represent pneumonia or edema. 4:? Small pleural effusions. 5: Irregular shaped soft tissue with areas of cystic change in the left lower anterior chest wall. This may be posttraumatic change, although infection and malignancy should also be considered in the appropriate clinical setting. the patient was started on a still throw mycin Rocephin. She was given 2 boluses of normal saline and then a 250 of normal saline. Due to her hypotension and then albumin was ordered. The patient initially was admitted to observation and then changed to inpatient on the date of Service 01/05/2022. Review of Systems Review of Systems: See HPI All systems reviewed & are unremarkable except as noted in HPI and below Constitutional: Constitutional: Reports as per HPI and Reports no additional constitutional complaints Eyes: Eyes: Reports as per HPI and Reports no additional eye complaints ENT: Reports system reviewed and no additional complaints, except as documented and Reports Normal hearing present Cardiovascular: Cardiovascular: Reports no additional cardiovascular complaints Respiratory: Respiratory: Reports no additional respiratory complaints and Reports no additional respiratory complaints Gastrointestinal: Gastrointestinal: Reports as per HPI and Reports no additional gastrointestinal complaints Musculoskeletal: Musculoskeletal: Reports no additional musculoskeletal complaints Integumentary/Breasts: Skin/Breast: Reports system reviewed and no additional complaints, except as docu and Reports as per HPI Neurologic: Reports system reviewed and no additional complaints, except as documented, Reports as per HPI and Reports Normal hearing present Psychiatric: Psychiatric: Reports no additional psychiatric complaints and Reports as per HPI Endocrine: Endocrine: Reports no additional endocrine complaints Hematologic/Lymphatic: Hematologic/Lymphatic: Reports no additional hematologic/lymphatic complaints Allergic/Immunologic: Allergic/Immunologic: Reports no additional allergic/immunologic complaints [facility] Past Medical History Medical History (Updated 01/06/22 @ 00:31 by Ellen Sapp NP) Biliary sludge (~08/2020) Common bile duct dilatation Diabetes DM2 (diabetes mellitus, type 2) diet controlled History of breast cancer Lumpectomy Hyperlipidemia (Unknown) Hypertension (Unknown) Hypothyroidism ([place]
[2022-01-06] VITALS (8 sets, daily range): BP systolic 82; BP diastolic 48; PULSE 67–77; RESP 16–18; TEMP 36.6; O2SAT 91–97; BMI 30.2
--- NOTE | 2022-01-06 | ECHO_ITS ---
Patient Info Name: Isabel Monzon Age: 86 years : 1935 Gender: Female Ht: 64 in Wt: 174 lbs BSA: 1.91 m2 HR: 88 bpm BP: 82 / 48 mmHg Technical Quality: Fair Exam Date: 01/06/2022 10:12 AM Exam Location: [facility] Patient Status: Inpatient Admit Date: 01/05/2022 Staff Ordering Physician: Jovany Dial Cardiac Monitor: Avila Dorado RDCS, RT Attending Provider: Taawna Rossi MD Referring Physician: Jayro NEGRON; Exam Type: CA echo doppler color flow Study Info Indications I50.9 - Heart failure, unspecified Complete two-dimensional, color flow and Doppler transthoracic echocardiogram is performed. Summary 1. Complete two-dimensional, color flow and Doppler transthoracic echocardiogram is performed. 2. Left ventricular chamber dimension is normal. 3. Left ventricular systolic function is normal, estimated at 60-65%. 4. The left ventricular diastolic function is grade I diastolic dysfunction. 5. E/e' 6 is not elevated. 6. Left atrial chamber dimension is mildly enlarged. 7. Right atrial chamber dimension is mildly enlarged. 8. There is mild aortic valve sclerosis. 9. There is mild to moderate mitral valve regurgitation. 10. There is moderate to severe tricuspid valve regurgitation. 11. Severe pulmonary hypertension, estimated pulmonary arterial systolic pressure is 69 mmHg. 12. There is trace pulmonic regurgitation. 13. There is trivial pericardial effusion. Left Ventricle E/e' 6 is not elevated. Left ventricular chamber dimension is normal. Left ventricular systolic function is normal, estimated at 60-65%. The left ventricular diastolic function is grade I diastolic dysfunction. Right Ventricle Right ventricular chamber dimension is normal. Right ventricular systolic function is normal. Left Atria Left atrial chamber dimension is mildly enlarged. Right Atria Right atrial chamber dimension is mildly enlarged. Aortic Valve The aortic valve is trileaflet. There is mild aortic valve sclerosis. There is no aortic valve stenosis. There is no aortic valve regurgitation. Pulmonic Valve There is trace pulmonic regurgitation. Mitral Valve There is no mitral valve stenosis. There is mild to moderate mitral valve regurgitation. Tricuspid Valve There is moderate to severe tricuspid valve regurgitation. Severe pulmonary hypertension, estimated pulmonary arterial systolic pressure is 69 mmHg. Pericardium/Pleural There is trivial pericardial effusion. Inferior Vena Cava Normal inferior vena cava with >50% collapse upon inspiration consistent with normal right atrial pressure, 5 mmHg. Aorta The aortic root size at the sinus of Valsalva is normal. Left Ventricular Outflow Tract Name Value Normal LVOT 2D LVOT Diameter 2.0 cm LVOT Doppler LVOT Peak Gradient 2 mmHg LVOT Mean Gradient 1 mmHg LVOT VTI 15 cm LVOT VTI/AV VTI Ratio 0.5 LVOT Stroke Volume 45 ml LVOT CO 3.6 l/min
[2022-01-06] MEDS: ALBUMIN HUMAN 25% 25 GM/100 ML 100 ML IVPB (00:30)
[2022-01-06] MEDS: ALBUTEROL SULFATE NEB 2.5 MG/3 ML INH INHALATION ×2 (01:48→08:53)
[2022-01-06] MEDS: IPRATROPIUM BR 0.02% INH SOLN 0.5 MG/2.5 ML VIAL INHALATION ×2 (01:49→08:54)
[2022-01-06 05:39] LABS: Alanine Aminotransferase 19 U/L (6-35); Albumin Level 2.2 g/dL (3.5-5.1); Alkaline Phosphatase 229 U/L (38-126); Anion Gap 13 mmol/L (8-16); Aspartate Amino Transferase 36 U/L (14-36); Bilirubin,Total 0.5 mg/dL (0.2-1.3); Blood Urea Nitrogen 35 mg/dL (7-17); Calcium 7.1 mg/dL (8.4-10.2); Carbon Dioxide 21 mmol/L (22-30); Chloride 105 mmol/L (98-107); Estimated CRCL calculation 35 ml/min; Estimated Glomerular Filt Rate 47; Glucose 66 mg/dL (65-110); Magnesium 1.2 mg/dL (1.6-2.3); Potassium 3.2 mmol/L (3.4-5.0); Sodium 139 mmol/L (137-145)
[2022-01-06 05:45] LABS: Lactic Acid Reflex 2.2 mmol/L (0.7-2.0)
[2022-01-06 06:05] LABS: Basophils Absolute Auto 0.1 K/mm3 (0.0-0.1); Basophils Percent Auto 0.7 % (0.2-1.2); Eosinophils Absolute Auto 0.2 K/mm3 (0-0.3); Eosinophils Percent Auto 1.6 % (0-4.4); Hematocrit 30.9 % (37.0-47.0); Hemoglobin 10.1 g/dL (12.0-15.0); Immature Granulocyte Absolute 0.69 K/mm3 (0.00-0.031); Immature Granulocyte Percent A 5.1 % (0-0.5); Lymphocytes Absolute Auto 1.52 K/mm3 (0.9-3.2); Lymphocytes Percent Auto 11.3 % (18.3-44.2); Mean Corpuscular HGB Conc 32.7 g/dl (32-36); Mean Platelet Volume 10.1 fl (7.4-10.4); Monocytes Absolute Auto 0.7 K/mm3 (0.1-0.6); Monocytes Percent Auto 5.1 % (2.6-8.5); Neutrophils Absolute Auto 10.3 K/mm3 (1.3-6.7); Neutrophils Percent Auto 76.2 % (45.5-73.1); Nucleated Red Blood Cells Perc 0.1 % (0.0-0.2); Platelet Count Result 380 k/mm3 (150-375); Red Blood Count 2.97 M/mm3 (4.2-5.4); White Blood Count 13.4 K/mm3 (4.5-10.0)
[2022-01-06 06:08] LABS: Anisocytosis 1+ (NORMAL); Burr Cells 1+ (NORMAL); Hypochromasia 1+ (NORMAL); Ovalocytes 1+ (NORMAL); Platelet Estimate Adequate (Adequate)
[2022-01-06 06:34] LABS: Schistocytes None Seen (NORMAL)
[2022-01-06 06:55] LABS: Hemoglobin A1C 4.3 % (<5.7)
[2022-01-06 08:02] LABS: Reflex Lactic Acid Yes or No Add Lactic
[2022-01-06 08:22] LABS: Glucose Point of Care 55 mg/dl (65-105)
[2022-01-06] MEDS: GLUCOSE ORAL GEL 15 GM OF GLUCSE IN 37.5 GM TUBE PO (08:25)
[2022-01-06] MEDS: ONDANSETRON INJ 4 MG/2 ML VIAL IV PUSH (08:36)
[2022-01-06] MEDS: CALCIUM CARBONATE (TUMS) 500 MG (200 MG ELEMENTAL) 400 MG BY MOUTH (08:43)
[2022-01-06] MEDS: PANTOPRAZOLE 40 MG TABLET PO (08:44)
[2022-01-06] MEDS: LEVOTHYROXINE SODIUM 100 MCG TABLET 200 MCG PO (08:44)
[2022-01-06] MEDS: CHOLECALCIFEROL 1,000 UNITS TABLET 5000 UNITS PO (08:44)
[2022-01-06] MEDS: CELECOXIB 200 MG CAPSULE PO (08:44)
[2022-01-06] MEDS: ATORVASTATIN 20 MG TABLET PO (08:45)
[2022-01-06] MEDS: POTASSIUM CHLORIDE 20 MEQ TABLET 40 MEQ PO (08:49)
[2022-01-06] MEDS: ALBUMIN HUMAN 25% 25 GM/100 ML 200 ML IVPB (08:51)
[2022-01-06] MEDS: ASPIRIN 81 MG CHEWABLE TABLET PO (08:58)
[2022-01-06] MEDS: EUCERIN CREAM 120 GM JAR 1 APPLIC TOPICAL (08:58)
[2022-01-06 09:01] LABS: Glucose Point of Care 68 mg/dl (65-105)
[2022-01-06 09:01] LABS: Lactic Acid 1.9 mmol/L (0.7-2.0)
[2022-01-06] MEDS: MAGNESIUM SULF 4 GM/WATER100ML 4 GM/100 ML BAG IVPB (09:05)
[2022-01-06 09:17] LABS: Glucose Point of Care 69 mg/dl (65-105)
--- NOTE | 2022-01-06 09:30 | P.DS_ITS ---
DS: Admitting Diagnosis Discharge Date 01/06/22929 Admitting Diagnosis CHF exacerbation, electrolyte abnormality DS: Discharge Diagnosis Discharge Diagnosis (1) Sepsis: Code(s): A41.9 - Sepsis, unspecified organism Status: Acute Assessment and Plan: * Meets sepsis criteria with tachypnea, leukocytosis, lacticacidoses, hypotension, * Source of infection appears to be PNA * BP is low at 82/48 * notable CESAR * Blood cultures ordered and pending * Started on antibiotics in the ed * sputum culture ordered * Fluids of 2250 given for hydration * WBC mildly elevated at 13.4 * Continue to trend labs * Adjust therapy as indicated (2) CHF (congestive heart failure): Code(s): I50.9 - Heart failure, unspecified Status: Acute Assessment and Plan: * CTA shows PNA vs Edema, small pleural effusions * CXR showed opacities representing pulmonary edema, chronic interstitial lung change, indicated Atypical infection and active lung disease * Lasix 40mg IV BID, call provider if the SBP is <100 * Appears to be an acute exacerbation of chronic diastolic heart failure * BNP 4450 * BP is labile, continue to trend and adjust medications as BP tolerates * Could be from IV fluids, as she received 2L of NS * Daily weights * Trend I&Os * Echo doppler ordered (3) Community acquired pneumonia: Code(s): J18.9 - Pneumonia, unspecified organism Status: Acute Assessment and Plan: * CXR opacities PNA VS Pulm edema * CTA showed ground glass opacities * Azithromycin and Ceftriaxone continued * WBC slightly elevated 13.4 * Sputum culture ordered * Blood cultures pending * Adjust per cultures if possible * Neb treatments ordered (4) Hypotension: Code(s): I95.9 - Hypotension, unspecified Status: Acute Assessment and Plan: * BP 82/48 * Could be related to the hypoalbuminemia * 200ml given once * Hold antihypertensives * Trend BP * Adjust therapy as indicated (5) Electrolyte abnormality: Code(s): E87.8 - Other disorders of electrolyte and fluid balance, not elsewhere classified Status: Acute Assessment and Plan: * K is 3.2, Mg 1.2 * 4 gm Mag is ordered * 40mcg K x 1 * Continue to trend labs * Replacement as indicated (6) Acute renal insufficiency: Code(s): N28.9 - Disorder of kidney and ureter, unspecified Status: Acute Assessment and Plan: * BUN/Cr 35/1.10 * Baseline appears to be 0.70 * Could be related to fluid overload, or infection * Trend labs * Adjust therapy as indicated * Avoid nephrotoxic medications (7) Anemia: Code(s): D64.9 - Anemia, unspecified Status: Acute Assessment and Plan: * H/H 10.1/30.9 * Was >12 upon admission * Anemia labs in the am * Could be related to fluid overload and dilution * trend H/H * Transfuse as indicated <7 (8) Hypocalcemia: Code(s): E83.51 - Hypocalcemia Status: Acute Assessment and Plan: * Kain 7.1, albumin is low, corrected kain 8.1 * TSH 2.630 * Hold off on replacement as this is probably related to hypoalbumin (9) Hypothyroidism: Onset Date: Unknown Code(s): E03.9 - Hypothyroidism, unspecified Status: Chronic Assessment
--- NOTE | 2022-01-06 09:30 | PM.DS ---
DS: Admitting Diagnosis Discharge Date 01/06/22929 Admitting Diagnosis CHF exacerbation, electrolyte abnormality DS: Discharge Diagnosis Discharge Diagnosis (1) Sepsis: Code(s): A41.9 - Sepsis, unspecified organism Status: Acute Assessment and Plan: Meets sepsis criteria with tachypnea, leukocytosis, lacticacidoses, hypotension, Source of infection appears to be PNA BP is low at 82/48 notable CESAR Blood cultures ordered and pending Started on antibiotics in the ed sputum culture ordered Fluids of 2250 given for hydration WBC mildly elevated at 13.4 Continue to trend labs Adjust therapy as indicated (2) CHF (congestive heart failure): Code(s): I50.9 - Heart failure, unspecified Status: Acute Assessment and Plan: CTA shows PNA vs Edema, small pleural effusions CXR showed opacities representing pulmonary edema, chronic interstitial lung change, indicated Atypical infection and active lung disease Lasix 40mg IV BID, call provider if the SBP is <100 Appears to be an acute exacerbation of chronic diastolic heart failure BNP 4450 BP is labile, continue to trend and adjust medications as BP tolerates Could be from IV fluids, as she received 2L of NS Daily weights Trend I&Os Echo doppler ordered (3) Community acquired pneumonia: Code(s): J18.9 - Pneumonia, unspecified organism Status: Acute Assessment and Plan: CXR opacities PNA VS Pulm edema CTA showed ground glass opacities Azithromycin and Ceftriaxone continued WBC slightly elevated 13.4 Sputum culture ordered Blood cultures pending Adjust per cultures if possible Neb treatments ordered (4) Hypotension: Code(s): I95.9 - Hypotension, unspecified Status: Acute Assessment and Plan: BP 82/48 Could be related to the hypoalbuminemia 200ml given once Hold antihypertensives Trend BP Adjust therapy as indicated (5) Electrolyte abnormality: Code(s): E87.8 - Other disorders of electrolyte and fluid balance, not elsewhere classified Status: Acute Assessment and Plan: K is 3.2, Mg 1.2 4 gm Mag is ordered 40mcg K x 1 Continue to trend labs Replacement as indicated (6) Acute renal insufficiency: Code(s): N28.9 - Disorder of kidney and ureter, unspecified Status: Acute Assessment and Plan: BUN/Cr 35/1.10 Baseline appears to be 0.70 Could be related to fluid overload, or infection Trend labs Adjust therapy as indicated Avoid nephrotoxic medications (7) Anemia: Code(s): D64.9 - Anemia, unspecified Status: Acute Assessment and Plan: H/H 10.1/30.9 Was >12 upon admission Anemia labs in the am Could be related to fluid overload and dilution trend H/H Transfuse as indicated <7 (8) Hypocalcemia: Code(s): E83.51 - Hypocalcemia Status: Acute Assessment and Plan: Kain 7.1, albumin is low, corrected kain 8.1 TSH 2.630 Hold off on replacement as this is probably related to hypoalbumin (9) Hypothyroidism: Onset Date: Unknown Code(s): E03.9 - Hypothyroidism, unspecified Status: Chronic Assessment and Plan: TSH 2.630 Levothyroxine 200mcg PO Daily Stable at this time (10) Hyperlipidemia: Onset Date: Unknown Qualifiers: Hyperlipidemia type: unspecified Qualified Code(s): E78.5 - Hyperlipidemia, unspecified Code(s): E78.5 - Hyperlipidemia, unspecified Status: Chronic Assessment and Plan: -Continue with Lipitor. (11) DM2 (diabetes mellitus, type 2): Code(s): E11.9 - Type 2 diabetes mellitus without complications Status: Acute Assessment and Plan: Glucose is 66 Accu-Cheks AC/HS hypoglycemia protocol ISS Trend glucose Adjust therapy as indicated A1
[2022-01-06 09:41] LABS: Glucose Point of Care 96 mg/dl (65-105)
[2022-01-06] MEDS: ALBUMIN HUMAN 5% IV CONT (10:44)
[2022-01-06 12:20] LABS: Glucose Point of Care 138 mg/dl (65-105)
[2022-01-06] MEDS: LORazepam (*CRX) 0.5 MG TABLET PO (13:54)
== END 2022-01-06 13:58 | disposition hospice, home (50) | DRG 871 ==
LOC: ANHED 14:41 → ANH2MED 19:28
PROVIDERS: Nurse Practitioner; Admitting Provider Hospitalist; Emergency Provider Emergency Medicine; PCP Family Medicine; Visit Provider Nurse Practitioner
DX: A41.9 Sepsis, unspecified organism (principal); J18.9 Pneumonia, unspecified organism; I50.33 Acute on chronic diastolic (congestive) heart failure; N17.9 Acute kidney failure, unspecified; I11.0 Hypertensive heart disease with heart failure; E83.51 Hypocalcemia; E03.9 Hypothyroidism, unspecified; Z20.822 Contact with and (suspected) exposure to COVID-19; L98.429 Non-pressure chronic ulcer of back with unspecified severity; D64.89 Other specified anemias; E78.5 Hyperlipidemia, unspecified; E11.9 Type 2 diabetes mellitus without complications; I10 Essential (primary) hypertension; M06.9 Rheumatoid arthritis, unspecified; E87.8 Other disorders of electrolyte and fluid balance, not elsewhere classified; Z66 Do not resuscitate; Z96.612 Presence of left artificial shoulder joint; Z96.653 Presence of artificial knee joint, bilateral; Z98.42 Cataract extraction status, left eye; Z98.41 Cataract extraction status, right eye; Z85.3 Personal history of malignant neoplasm of breast; Z90.49 Acquired absence of other specified parts of digestive tract; Z79.82 Long term (current) use of aspirin
CPT/HCPCS: 36415; 71045; 71275; 80053; 81001; 82948; 83036; 83605; 83735; 83880; 84443; 84484; 85025; 85610; 85730; 87040; 87147; 87181; 87186; 93005; 93306; 94640; 96361; 96365; 99285; A9270; C9803; J0456; J0696; J2405; J3475; J7030; J7050; P9045; P9047; Q9967; U0003; U0005

== ENCOUNTER 2022-01-06 14:53 | HOS | payer OTHER, SELFPAY ==
--- NOTE | 2022-01-06 14:55 | PM.IMHP ---
H&P: HPI History of Present Illness Date/Time: 01/06/22 14:55 Chief Complaint: CHF exacerbation, shortness of breath Narrative: Patient is an 86-year-old female with a past medical history of hypertension, hyperlipidemia, CHF, diabetes, obesity who presented to the ED on 01/05/22 for shortness of breath and increased oxygen demand. Treatment have been started however patient failed treatment for septic shock and CHF exacerbation. Hypotension persisted along with severe anasarca. Patient and patient POA discussed options and decided to sign up for hospice. Patient will be in-patient hospice due to severe hypotension. Patient did meet sepsis criteria upon admission with tachypnea, lactic acidosis, source of infection being either pneumonia, wound infection, respiratory failure, hypotension. BNP upon admission was 4450. With all of the noninvasive recommendations patient was unable to recover. Patient stated that it would be best for her to go hospice and be comfortable as she is tired and is unable to move around or do things she is used to doing. Currently patient is resting comfortably. Patient denies any chest pain, shortness of breath, nausea, vomiting, diarrhea, constipation. Patient does admit to having fatigue and weakness at this time. Patient is being admitted to the hospital service for inpatient hospice care. Review of Systems Review of Systems: All systems reviewed & are unremarkable except as noted in HPI and below PMFSH Past Medical History Medical History Biliary sludge (~08/2020) Common bile duct dilatation Diabetes DM2 (diabetes mellitus, type 2) diet controlled History of breast cancer Lumpectomy Hyperlipidemia (Unknown) Hypertension (Unknown) Hypothyroidism (Unknown) Leukocytosis (Unknown) Nausea Obesity Rheumatoid arthritis Surgical History Surgical History H/O bilateral cataract extraction H/O lumpectomy H/O shoulder replacement On the left History of laparoscopic cholecystectomy 09/09/20 History of orthopedic surgery History of total knee replacement Bilaterally Family History Family History (Updated 01/06/22 @ 00:33 by Ellen Sapp NP) Mother Endocarditis Social History Social History Social History: The patient is and never had any children. 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 She is a lifelong nonsmoker. Her friend Melissa mendoza is her friend that is the durable power deputy prosecuting attorney for healthcare. The patient desires to be a DNR. She does not use alcohol or illicit drugs. . Code status DNR Smoking status: Never smoker Second hand tobacco smoke exposure: No Alcohol intake: never Substance use: never Additional living arrangements comments: [facility] Gender identity (if verbalized by the patient): Female Sexual Orientation (if Verbalized by the Patient): Straight or Heterosexual Spiritual care concerns: Yes (Hospice) Meds Home Medications and Allergies Allergies Allergy/AdvReac Type Severity Reaction Status Date / Time adhesive tape Allergy Mild Rash Verified 03/02/21 10:47 morphine Allergy Mild Rash Verified 03/02/21 10:47 Exam Narrative: Const:?? General: cooperati ve, healthy appear ing, comfortable, no acute distress, well developed, a lert, awake, Physi chase active, aver age body habitus a nd well nourished? Nutritional Appea alfonso: average bod y habitus and well nourished? [place] ation/consciousnes s: oriented to per son, oriented to p
[2022-01-06] MEDS: HYDROmorphone HCL INJ (*CRX) 1 MG/ML SYR 0.5 MG IV PUSH ×2 (15:24→20:31)
[2022-01-06 15:28] VITALS: O2SAT 90
[2022-01-06 15:35] VITALS: BMI 30.2
[2022-01-06 20:00] VITALS: BP 61/31; PULSE 77; RESP 24; TEMP 36.6; O2SAT 86
[2022-01-06] MEDS: MICONAZOLE NITRATE 2% CREAM 30 GM TUBE 1 APPLIC TOPICAL (20:33)
--- NOTE | 2022-01-06 21:52 | PC.NURSE ---
2104 CRITICAL LAB RESULT CALLED GRAM POSITIVE [facility]I IN [facility]ERS IN AEROBIC BOTTLE ONLY. HOSPITALIST NOTIFIED. STATED THAT SINCE PT WAS COMFORT MEASURES THERE WAS NO FURTHER ACTION TO BE TAKEN AND NO NEW ORDERS WERE GIVEN.
--- NOTE | 2022-01-07 00:21 | PC.NURSE ---
01/06/22 2340 patient found without respirations, bp, heart rate, or corneal reflex. pronounced time of at 2340. no family at bedside.
--- NOTE | 2022-01-07 01:20 | PC.NURSE ---
0115 PT TRANSFERRED TO [facility] [place]
--- NOTE | 2022-01-07 06:31 | P.DN_ITS ---
Discharge Summary Date and Time Date of : 01/06/22 Time of : 23:40 Provider Pronounced By: Lyn Quinones RN Probable Cause of Probable Cause of : Septic shock, CHF exacerbation Summary Hospital Course: Patient is an 86-year-old female with a past medical history of hypertension, hy perlipidemia, CHF, diabetes, obesity who presented to the ED on 01/05/22 for shortness of breath and increased oxygen demand.? Treatment have been started however patient failed treatment for septic shock and CHF exacerbation.? Hypotension persisted along with severe anasarca.? Patient and patient POA discussed options and decided to sign up for hospice.? Patient will be in- patient hospice due to severe hypotension.? Patient did meet sepsis criteria upon admission with tachypnea, lactic acidosis, source of infection being either pneumonia, wound infection, respiratory failure, hypotension.? BNP upon admission was 4450.? With all of the noninvasive recommendations patient was unable to recover.? Patient stated that it would be best for her to go hospice and be comfortable as she is tired and is unable to move around or do things she is used to doing. Patient remained hypotensive and comfortable. Additional Data Confirmation of as documented by pronouncing clinician: Pupillary Reflex, Palpable Pulses, Response to Stimuli, Heart Tones and Breath Sounds Name of Provider Notified: Ellen Sapp NP Time Provider Notified: 23:50 Was code activated?: No Provider Requests Autopsy: No Family Requests Autopsy: No Environmental Inspector Notified: Yes Date [facility] Notified of : 01/07/22 Time [facility] Notified of : 00:07 Advance directives: Yes Hospice patient?: Yes
== END 2022-01-07 02:13 | disposition expired | DRG 951 ==
PROVIDERS: Admitting Provider Chiropractor; PCP Family Medicine; Visit Provider Nurse Practitioner
DX: Z51.5 Encounter for palliative care (principal); A41.9 Sepsis, unspecified organism; R65.21 Severe sepsis with septic shock; I11.0 Hypertensive heart disease with heart failure; I50.9 Heart failure, unspecified
CPT/HCPCS: A9270; J1170